=== PATIENT | female | born 1955 | race African-American/Black ===

== ENCOUNTER → 2016-09-29 | Outpatient (CLI) | payer MEDICAID ==
[2016-08-07 20:11] VITALS: BP 166/106
--- NOTE | 2016-09-29 15:43 | MG ---
HISTORY: SCREENING Comparison: None FINDINGS: Bilateral CC and MLO projections of the right and left breast were obtained. Heterogeneously dense fibroglandular tissue is seen to be present. No significant architectural distortion, mass or clust ered microcalcifications can be observed to suggest malignancy. No skin thickening or nipple retrac tion is appreciated. No pathological lymphadenopathy can be identified. IMPRESSION: NO RADIOGRAPHIC EVIDENCE OF MALIGNANCY. ACR CATEGORY I - NEGATIVE EXAM. FOLLOW-UP EXAM 1 YEAR. Diagnostic CAD was utilized and reviewed. * 0 (ZERO) - ASSESSMENT INCOMPLETE; ADDITIONAL IMAGING IS NEEDED. * 1/1 (ONE) - NEGATIVE. * 2/II (TWO) - BENIGN FINDINGS. * 3/III (THREE) - PROBABLY BENIGN FINDING; SHORT INTERVAL FOLLOW-UP SUGGESTED. * 4/IV (FOUR) - SUSPICIOUS ABNORMALITY; BIOPSY SHOULD BE CONSIDERED. * 5/V (FIVE) - HIGHLY SUSPICIOUS OF MALIGNANCY; BIOPSY SHOULD BE PERFORMED. A NEGATIVE X-RAY REPORT SHOULD NOT DELAY BIOPSY IF A DOMINANT OR CLINICALLY SUSPICIOUS MASS IS PRESENT; 4 TO 8 PERCENT OF CANCERS ARE NOT IDENTIFIED BY X-RAY. A NEG ATIVE REPORT MAY REINFORCE THE CLINICAL IMPRESSION. ADENOSIS AND DENSE BREASTS MAY OBSCURE AN UNDER LYING NEOPLASM. Reported By:
== END ==
LOC: MERGE 08:27 → RAD 08:27
PROVIDERS: ATTEND Nurse Practitioner Family
DX: Z00.00 Encounter for general adult medical examination without abnormal findings (principal); Z12.31 Encounter for screening mammogram for malignant neoplasm of breast
CPT/HCPCS: 77067

== ENCOUNTER → 2016-10-05 | Outpatient (CLI) | payer MEDICAID ==
[2016-10-04 14:23] VITALS: BP 166/106
== END ==
LOC: LAB 11:37
PROVIDERS: ATTEND Nurse Practitioner Family
DX: R51 Headache (principal)
CPT/HCPCS: 36415; 85652; 86140

== ENCOUNTER 2016-10-28 21:58 | Emergency (ER) | payer MEDICAID ==
[2016-10-28] MEDS ORDERED: ASPIRIN 81 MG CHEWTAB ONE (22:02)
[2016-10-28 22:07] VITALS: BMI 19.3
[2016-10-28] MEDS ORDERED: ASPIRIN 81 MG CHEWTAB PO STA (22:08)
[2016-10-28] MEDS: NITROSTAT SL PRN ×2 (22:09→22:52)
[2016-10-28 22:18] LABS: BASOPHILS # (AUTO) 0.1 X10^3/uL (0.0-0.1); BASOPHILS % (AUTO) 0.9 % (0.2-1.0); EOSINOPHILS # (AUTO) 0.2 x10^3/uL (0.0-0.2); EOSINOPHILS % (AUTO) 2.3 % (0.9-2.9); HEMATOCRIT 34.5 % (36.0-47.0); HEMOGLOBIN 11.8 g/dL (12.0-16.0); LYMPHOCYTES # (AUTO) 2.4 X10^3/uL (1.3-2.9); LYMPHOCYTES % (AUTO) 31.1 % (21.0-51.0); MEAN CORPUSCULAR HEMOGLOBIN 32.2 pg (27.0-34.0); MEAN CORPUSCULAR HGB CONC 34.4 g/dL (33.0-35.0); MEAN CORPUSCULAR VOLUME 93.7 fL (80.0-100.0); MEAN PLATELET VOLUME 8.2 fL (7.4-11.0); MONOCYTES # (AUTO) 0.7 x10^3/uL (0.3-0.8); MONOCYTES % (AUTO) 9.9 % (0.0-13.0); NEUTROPHILS # (AUTO) 4.2 x10^3/uL (2.2-4.8); NEUTROPHILS % (AUTO) 55.8 % (42.0-75.0); PLATELET COUNT 248 X10^3/uL (150.0-450.0); RED BLOOD COUNT 3.68 X10^6/uL (3.5-5.4); RED CELL DISTRIBUTION WIDTH 13.6 % (11.6-16.5); WHITE BLOOD COUNT 7.6 X10^3/uL (3.6-10.0)
[2016-10-28 22:31] LABS: ALANINE AMINOTRANSFERASE 37 Units/L (12-78); ALBUMIN 2.7 g/dL (3.4-5.0); ALKALINE PHOSPHATASE 166 Units/L (46-116); ASPARTATE AMINO TRANSFERASE 28 Units/L (15-37); BLOOD UREA NITROGEN 13 mg/dL (7-18); CALCIUM 8.4 mg/dL (8.5-10.1); CARBON DIOXIDE 23.4 mmol/L (21-32); CHLORIDE 107 mmol/L (98-107); COR CA(FOR HYPOALB) 9.4 mg/dL (8.5-10.1); CREATININE 0.97 mg/dL (0.55-1.02); GLUCOSE 104 mg/dL (65-99); MAGNESIUM 1.7 mg/dL (1.7-2.9); SODIUM 141 mmol/L (136-145); TOTAL PROTEIN 7.9 g/dL (6.4-8.2); eGFR BLACK RACES > 60 (>60); eGFR NON BLACK RACES > 60 (>60)
[2016-10-28 22:44] LABS: CKMB % 1.9 % (<4); CREATINE KINASE 52 Units/L (26-192); CREATINE KINASE MB < 1.0 ng/mL (0-4.0); TROPONIN I 0.03 ng/mL (0-1.5)
--- NOTE | 2016-10-28 22:47 | DR.CP ---
HPI - Time Seen Time seen: 21:00 - PCP Primary Care Physician: rika peters - Complaint Chief Complaint Doctor Comments: chest pain with nausea and SOB. Chief Complaint:: constant chest pain all day, nausea vomiting - Reviewed Nurses Notes Review: Yes - Source History Provided: Patient - Mode of Arrival Mode of Arrival: Wheelchair - Timing Onset of Chief Complaint: 10/28/16 Came on: Gradually - Duration Duration: Intermittent Duration: Minutes - Location Location of Chest Pain: Chest Chest Pain Radiation Location: None - Context Onset: At rest, With light exertion Cardiac Risk Factors: Hyperlipidemia, HTN PE Risk Factors: None History of: Similar pain in the past, Other (cardiac window due to pericardial effusion) - Quality Quality: Squeezing, Burning - Severity Severity: Moderate - Modifying Factors Worsens: Exertion - Associated Signs and Symptoms Associated Signs and Symptoms: Shortness of Breath, Nausea/Vomiting. denies: Diaphoresis PMH - PMH Past Medical History: Yes Past Medical History: CHF, Hypertension Past Surgical History: No - Family History History of Family Medical Conditions: Yes Family Medical History: Diabetes Mellitus, Hypertension - Social History Does patient currently use any type of tobacco product: No Have you used tobacco products in the last 12 months: No Type of Tobacco Use: None Alcohol Use: None Do you use any recreational Drugs:: No Lives With: Family Lives Where: Home - infectious screening Have you traveled outside the country in the last 6 months?: No Isolation: Standard ROS - Review of Systems Constitutional: No Symptoms Reported Eyes: No Symptoms Reported ENTM: No Symptoms Reported Respiratoy: Short of Breath Cardiovascular: Chest Pain Gastrointestinal/Abdominal: Nausea Genitourinary: No Symptoms Reported Neurological: No Symptoms Reported Musculoskeletal: No Symptoms Reported Integumentary: No Symptoms Reported Hematologic/Lymphatic: No Symptoms Reported Endocrine: No Symptoms Reported Psychiatric: No Symptoms Reported All Other Systems: Reviewed and Negative PE - Vitals Vitals: Pulse Rate [Apical] 63 Pulse Rate 69 Respiratory Rate 20 Blood Pressure [Left Arm] 171/90 Blood Pressure 180/96 O2 Sat by Pulse Oximetry 100 - General Limitations: No Limitations General Appearance: Alert, In No Apparent Distress - Head Head Exam: Normal Inspection - Eyes Eye exam: Normal Appearance - ENT ENT Exam: Normal Exam - Chest Chest Inspection: Tenderness (midepigastric at site of cardiac window) - Respiratory Respiratory Exam: Normal Lung Sounds Bilat, Chest Wall Tenderness. negative: Respiratory Distress Respiratory Exam: Bilateral Clear to Auscultation - Cardiovascular Cardiovascular Exam: Regular Rate, Normal Rhythm, Normal Heart Sounds Pulse: Normal - Abdominal Exam Abdominal Exam: Normal Bowel Sounds, Soft - Extremities Extremities Exam: Normal Inspection - Neurologic Neurological Exam: Alert, Oriented X3, CN II-XII Intact - Psychiatric Psychiatric Exam: Normal Affect, Normal Mood - Skin Skin Exam: Dry, Intact, Normal Color ROR - Labs Reviewed Result Diagrams: 10/28/16 22:05 10/28/16 22:05 Laboratory: WBC 7.6 X10^3/uL (3.6-10.0) 10/28/16 22:05 RBC 3.68 X10^6/uL (3.5-5.4) 10/28/16 22:05 Hgb 11.8 g/dL (12.0-16.0) L 10/28/16 22:05 Hct 34.5 % (36.0-47.0) L 10/28/16 22:05 MCV 93.7 fL (80.0-100.0) 10/28/16 22:05 MCH 32.2 pg (27.0-34.0) 10/28/16 22:05 MCHC 34.4 g/dL (33.0-35.0) 10/28/16 22:05 RDW 13.6 % (11.6-16.5) 10/28/16 22:05 Plt Count 248 X10^3/uL (150.0-450.0) 10/28/16 22:05 MPV 8.2 fL (7.4-11.0) 10/28/16 22:05 Neut % 55.8 % (42.0-75.0) 10/28/16 22:05 Lymph % 31.1 % (21.0-51.0) 10/28/16 22:05 [place] % 9.9 % (0.0-13.0) 10/28/16 22:05 Eos % 2.3 % (0.9-2.9) 10/28/16 22:05 Baso % 0.9 % (0.2-1.0) 10/28/16 22:05 Neut # 4.2 x10^3/uL (2.2-4.8) 10/28/16 22:05 Lymph # 2.4 X10^3/uL (1.3-2.9) 10/28/16 22:05 [place] # 0.7 x10^3/uL (0.3-0.8) 10/28/16 22:05 Eos # 0.2 x10^3/uL (0.0-0.2) 10/28/16 22:05 Baso # 0.1 X10^3/uL (0.0-0.1) 10/28/16 22:05 Absolute Nucleated RBC 0.0 /100WBC 10/28/16 22:05 INR Target Range - 10/28/16 22:05 INR 1.04 (0.8-1.3) 10/28/16 22:05 PTT 28.3 SECONDS (22.9-36.5) 10/28/16 22:05 PTT Comment - 10/28/16 22:05 Sodium 141 mmol/L (136-145) 10/28/16 22:05 Corrected Sodium TNP 10/28/16 22:05 Potassium 3.5 mmol/L (3.5-5.1) 10/28/16 22:05 Chloride 107 mmol/L (98-107) 10/28/16 22:05 Carbon Dioxide 23.4 mmol/L (21-32) 10/28/16 22:05 BUN 13 mg/dL (7-18) 10/28/16 22:05 Creatinine 0.97 mg/dL (0.55-1.02) 10/28/16 22:05 Est GFR (MDRD) Af Amer > 60 (>60) 10/28/16 22:05 Est GFR (MDRD) Non-Af > 60 (>60) 10/28/16 22:05 Glucose 104 mg/dL (65-99) H 10/28/16 22:05 Calcium 8.4 mg/dL (8.5-10.1) L 10/28/16 22:05 Corrected Calcium 9.4 mg/dL (8.5-10.1) 10/28/16 22:05 Magnesium 1.7 mg/dL (1.7-2.9) 10/28/16 22:05 Total Bilirubin 0.20 mg/dL (0.2-1.0) 10/28/16 22:05 AST 28 Units/L (15-37) 10/28/16 22:05 ALT 37 Units/L (12-78) 10/28/16 22:05 Alkaline Phosphatase 166 Units/L (46-116) H 10/28/16 22:05 Creatine Kinase 52 Units/L (26-192) 10/28/16 22:05 CK-MB (CK-2) < 1.0 ng/mL (0-4.0) 10/28/16 22:05 CK/CKMB % Calc 1.9 % (<4) 10/28/16 22:05 Troponin I 0.03 ng/mL (0-1.5) 10/28/16 22:05 Total Protein 7.9 g/dL (6.4-8.2) 10/28/16 22:05 Albumin 2.7 g/dL (3.4-5.0) L 10/28/16 22:05 Globulin 5.2 g/dL (2.5-4.5) H 10/28/16 22:05 Albumin/Globulin Ratio 0.5 Ratio (1.1-2.1) L 10/28/16 22:05 - Diagnosis Discharge Problem: Chest pain at rest, Bilateral pleural effusion, Pulmonary infiltrate in left lung on chest x-ray - Discharge Plan Disposition: 01 HOME, SELF-CARE Condition: Stable Prescriptions: Levofloxacin [LEVAQUIN TAB 500 MG *] 500 mg PO DAILY #6 tab - Follow ups/Referrals Follow ups/Referrals: JEROME PETERS [Primary Care Provider] - 3 days - Instructions Instructions: Shortness of Breath, [id number], Atelectasis, Adult
--- NOTE | 2016-10-28 23:04 | RAD ---
AP Chest Indication: Chest pain with vomiting Comparison: None available Findings: The trachea is midline. The cardiac silhouette is unremarkable. There are increased reticular opac ity within the left lung base with blunting of left costophrenic sulcus consistent with small pleura l effusion and suspected left lower lobe infiltrate. No pneumothorax. The bony thorax is unremarkab le. IMPRESSION: 1. Increased reticular opacities within the left lung base and blunting of left costophrenic sulcus suggests small pleural effusion in the setting of a left lower lobe infiltrate. Correlation with fo llowup PA and lateral chest radiograph after completion of therapy is recommended to ensure resoluti on. Reported By:
[2016-10-28] MEDS ORDERED: PEPCID 20 MG IV PREMIX* 20 MG/50 ML BAG IV ONE ×2 (23:07→23:14)
[2016-10-28] MEDS ORDERED: LEVSIN/MAALOX/LIDOC VISC PO ONE (23:08)
[2016-10-28] MEDS ORDERED: LEVSIN/MAALOX/LIDOC VISC ONE (23:14)
[2016-10-29] MEDS ORDERED: LEVAQUIN TAB 500 MG PO SCH ×2 (00:11→09:00)
[2016-10-29] MEDS ORDERED: LEVAQUIN TAB 500 MG PO ONE (00:13)
[2016-10-29] MEDS ORDERED: LEVAQUIN TAB 500 MG ONE (00:14)
[2016-10-29] MEDS ORDERED: DUONEB 0.5 MG/3 MG NEB ONE (00:15)
[2016-10-29] MEDS ORDERED: DUONEB 0.5 MG/3 MG ONE (00:26)
[2016-10-29 00:43] VITALS: BP 141/81
== END 2016-10-29 00:41 | disposition home or self-care (01) ==
LOC: ER 22:00
DX: R07.89 Other chest pain (principal); J90 Pleural effusion, not elsewhere classified; R91.8 Other nonspecific abnormal finding of lung field
CPT/HCPCS: 36415; 71010; 80053; 82550; 82553; 83735; 84484; 85025; 85610; 85730; 87040; 93005; 93010; 94640; 96365; 96374; 99283; A4222; S0028; J7620

== ENCOUNTER → 2016-11-04 | Outpatient (CLI) | payer MEDICAID ==
[2016-10-29 00:43] VITALS: BP 141/81
--- NOTE | 2016-11-04 10:30 | RAD ---
HISTORY: Abdominal pain, follow up abnormal chest x-ray Study: Acute abdominal series plus lateral chest Comparison: October 28, 2016 Findings: The trachea is midline. The cardiac silhouette is unremarkable. Lungs are free of acute infiltrate s. The left lung base is now clear. No pleural effusions are identified peer E The bony thorax is u nremarkable. Flat plate and upright evaluation of the abdomen demonstrates a normal bowel gas pattern. No pneumop eritoneum is identified.. No pathological soft tissue mass or calcification can be observed. The b gregoria structures are grossly intact. IMPRESSION: 1. No acute cardiopulmonary disease. 2. No evidence for acute abdominal pathology identified. Reported By:
[2016-11-04 10:31] LABS: BASOPHILS % (AUTO) 0.8 % (0.2-1.0); EOSINOPHILS # (AUTO) 0.1 x10^3/uL (0.0-0.2); EOSINOPHILS % (AUTO) 2.5 % (0.9-2.9); HEMATOCRIT 38.4 % (36.0-47.0); LYMPHOCYTES # (AUTO) 1.6 X10^3/uL (1.3-2.9); LYMPHOCYTES % (AUTO) 28.6 % (21.0-51.0); MEAN CORPUSCULAR VOLUME 94.1 fL (80.0-100.0); MONOCYTES # (AUTO) 0.6 x10^3/uL (0.3-0.8); MONOCYTES % (AUTO) 11.3 % (0.0-13.0); NEUTROPHILS # (AUTO) 3.2 x10^3/uL (2.2-4.8); NEUTROPHILS % (AUTO) 56.8 % (42.0-75.0); PLATELET COUNT 242 X10^3/uL (150.0-450.0); RED BLOOD COUNT 4.08 X10^6/uL (3.5-5.4); RED CELL DISTRIBUTION WIDTH 14.2 % (11.6-16.5); WHITE BLOOD COUNT 5.6 X10^3/uL (3.6-10.0)
[2016-11-04 10:50] LABS: ALANINE AMINOTRANSFERASE 28 Units/L (12-78); ALKALINE PHOSPHATASE 153 Units/L (46-116); ASPARTATE AMINO TRANSFERASE 24 Units/L (15-37); BLOOD UREA NITROGEN 11 mg/dL (7-18); CALCIUM 8.7 mg/dL (8.5-10.1); CARBON DIOXIDE 29.3 mmol/L (21-32); CHLORIDE 106 mmol/L (98-107); COR CA(FOR HYPOALB) 9.5 mg/dL (8.5-10.1); CREATININE 1.01 mg/dL (0.55-1.02); GLUCOSE 100 mg/dL (65-99); SODIUM 142 mmol/L (136-145); TOTAL PROTEIN 7.9 g/dL (6.4-8.2); eGFR BLACK RACES > 60 (>60); eGFR NON BLACK RACES 59 (>60)
[2016-11-04 11:20] LABS: ERYTHROCYTE SEDIMENTATION RATE 25 MM/HOUR (0-20)
== END ==
LOC: LAB 09:49
PROVIDERS: ATTEND Nurse Practitioner Family
DX: R10.84 Generalized abdominal pain (principal); R11.10 Vomiting, unspecified; R93.8 Abnormal findings on diagnostic imaging of other specified body structures
CPT/HCPCS: 36415; 74022; 80053; 85025; 85652; 86140

== ENCOUNTER → 2016-11-10 | Outpatient (CLI) | payer MEDICAID ==
[2016-10-04 14:23] VITALS: BP 166/106
--- NOTE | 2016-11-10 10:18 | MRI ---
MRI BRAIN WITHOUT AND WITH CONTRAST CLINICAL HISTORY: 61-year-old female with temporal headache and blurred vision. COMPARISON: None. TECHNIQUE: Multiplanar, multisequence MR images of the brain were obtained prior to and following t he uneventful intravenous administration of contrast. FINDINGS: There is no evidence of diffusion restriction. The craniocervical junction is normal. Pituitary and optic nerve complex are normal. There are few scattered punctate foci of T2 FLAIR signal hyperintens ities are present within the periventricular and supraventricular white matter that are nonspecific in appearance but most likely to represent microvascular white matter ischemic changes. Normal signa l characteristics and morphology are demonstrated within the cerebral cortex, corpus callosum, deep mario nuclei, brainstem and cerebellum. Within the adenoidal tissue there is a 5 x 6 mm T2 FLAIR hype rintense cystic lesion with a 4 x 8 mm ovoid T2 FLAIR hyperintense cystic lesion within the left fos sa of Rosenmuller. The major vascular channels opacify normally and the major vascular flow voids, t o include the dural venous sinuses, are intact. The ventricular system is normal in size and morphol ogy. The basilar cisterns are normal. There is no evidence of abnormal intracranial enhancement. The orbits and globes are within normal limits. The paranasal sinuses and mastoids are clear. IMPRESSION: 1. No acute ischemic or hemorrhagic insult. 2. Nonspecific scattered foci of T2 FLAIR hyperintense signal within the white matter, most in keepi ng with chronic microvascular ischemic insult. 3. T2 FLAIR hyperintense cystic lesions within the adenoidal tissue and left fossa of Rosenmuller, l ikely cysts or small lymph nodes, recommend direct visualization by otolaryngology to exclude underl jaquelin neoplastic process. Reported By:
--- NOTE | 2016-11-10 10:18 | MRI ---
MRA HEAD WITHOUT CONTRAST CLINICAL HISTORY: 61-year-old female with temporal headache and blurred vision. COMPARISONS: None. TECHNIQUE: 3-D time of flight magnetic resonance angiographic images of the [place] of [place] were ob tained and presented as maximum intensity projection images in rotating format. FINDINGS: The vertebral arteries are codominant. Bilateral PICA are present. The basilar artery is normal in a ppearance and gives off normal bilateral AICA superior cerebellar and posterior cerebral arteries. T he internal carotid arteries are normal from the distal cervical segments to the carotid terminus. T here are small caliber posterior communicating arteries bilaterally. The middle and anterior cerebra l arteries are normal in course and caliber. There is a small caliber anterior communicating artery. IMPRESSION: No aneurysm, high-grade stenosis, complete occlusion, dissection or vascular malformation. Reported By:
== END ==
LOC: RAD 08:08
PROVIDERS: ATTEND Nurse Practitioner Family
DX: R51 Headache (principal)
CPT/HCPCS: 70544; 70553

== ENCOUNTER 2016-11-29 10:21 | Emergency (ER) | payer MEDICAID ==
[2016-11-29 10:28] VITALS: BMI 24.0
--- NOTE | 2016-11-29 11:06 | DR.GENAD ---
HPI - PCP Primary Care Physician: wes - HPI Comment HPI Comment: SAW PCP THIS AM. BP ELEVATED. CLONIDINE GIVEN TIMES 2. BP REMAIN ELEVATED. HERE FOR FURTHER EVALUATION. PATIENT IS SLEEPY BUT FULLY AROUSABLE. HAVING SEVERE HEADACHE. NO FEVER. HISTORY HTN ON MEDICATION AND IS COMPLAINT WITH MEDS. - Complaint/Symptoms Chief Complaint Doctors Comments: ELEVATED BLOOD PRESSURE. Chief Complaint:: high blood pressure - Nurses notes reviewed Nurses Notes Review: Yes - Source History Provided: Patient - Mode of Arrival Mode of Arrival: Ambulatory - Timing Onset of Chief Complaint: 11/29/16 Came on: Suddenly - Duration Duration: Constant Duration: Hours - Severity Severity: Moderate PMH - PMH Past Medical History: Yes Past Medical History: CHF, Hypertension Past Surgical History: No - Family History History of Family Medical Conditions: Yes Family Medical History: Diabetes Mellitus, Hypertension - Social History Does patient currently use any type of tobacco product: No Have you used tobacco products in the last 12 months: No Type of Tobacco Use: None Does any household member use tobacco: No Alcohol Use: None Do you use any recreational Drugs:: No Lives With: Family Lives Where: Home - infectious screening In the last 2 months have you had wt loss of >10#?: NO Have you had fever, night sweats or hemotysis?: No Have you traveled outside the country in the last 6 months?: No Isolation: Standard ROS - Review of Systems Constitutional: Weakness, Fatigue. negative: Chills, Diaphoresis, Fever, Loss of Appetite Eyes: Blurred Vision, Photophobia. negative: Eye Pain, Discharge ENTM: No Symptoms Reported. negative: Ear Pain, Nose Discharge, Nose Congestion , Throat Pain Respiratoy: No Symptoms Reported, Short of Breath. negative: Productive Cough, Non-Productive Cough, Wheezing, Hemoptysis Cardiovascular: Chest Pain, Other (BP ELEVATED). negative: Edema, Palpitations Gastrointestinal/Abdominal: Nausea. negative: Abdominal Pain, Diarrhea, Vomiting Genitourinary: No Symptoms Reported. negative: Dysuria, Frequency, Hematuria Neurological: Headache, Dizziness Musculoskeletal: Muscle Pain Integumentary: No Symptoms Reported Hematologic/Lymphatic: No Symptoms Reported Endocrine: No Symptoms Reported All Other Systems: Reviewed and Negative PE - Vital Signs Vitals: Temperature 97.8 F Pulse Rate [Left Brachial] 75 Pulse Rate 60 Respiratory Rate 16 Blood Pressure [Left Arm] 105/56 Blood Pressure 196/108 O2 Sat by Pulse Oximetry 99 - General Limitations: No Limitations General Appearance: Alert - Head Head Exam: Normal Inspection - Eyes Eye exam: Normal Appearance - ENT ENT Exam: Normal External Ear Exam External Ear Exam: Normal External Inspection TM/Canal Exam: Bilateral Normal Nose Exam: Normal Nose Exam Mouth Exam: Normal Inspection Throat Exam: Normal Inspection - Neck Neck Exam: Trachea Midline - Chest Chest Inspection: Symmetric Chest Wall Rise - Respiratory Respiratory Exam: Normal Lung Sounds Bilat Respiratory Exam: Bilateral Clear to Auscultation - Cardiovascular Cardiovascular Exam: Regular Rate, Normal Rhythm, Normal Heart Sounds - Abdominal Exam Abdominal Exam: Normal Bowel Sounds, Soft. negative: Tenderness - Extremities Extremities Exam: Normal Inspection - Back Back Exam: Normal Inspection - Neurologic Neurological Exam: Alert, Oriented X3, CN II-XII Intact. negative: Motor Sensory Deficit, Reflexes Normal - Psychiatric Psychiatric Exam: Normal Affect - Skin Skin Exam: Erythema MDM - Additional Information Additional Information Obtained From: Family - Differential Diagnosis Differential Diagnosis: HTN, HEADACHE, WEAKNESS, [place], CHF Course - Treatment Treatment: SEE ORDERS. PATIENT KEPT IN ED FOR OBSERVATION WHILE BP IMPROVE. - Reevaluation 1st: Improved (BP IMPROVE WITH MEDS IN ED,) - Consultation Consultation Comments: DISCUSS PATIENT WITH ALYSSA HOYOS PROVIDER. SHE WANT PATIENT TO REMAIN ON SAME DOSE OF HER HOME MED. SHE SHOULD CONTINUE TO MONITOR AND CHART BP. SHE WILL CALL PATIENT IN AM. - Education/Counseling Education/Counseling: Patient, Family, Education Educated On: Treatment, Diagnosis, Needs for Follow Up ROR - Labs Reviewed Laboratory Results Reviewed?: Yes Result Diagrams: 11/29/16 11:23 11/29/16 11:23 Laboratory: WBC 6.1 X10^3/uL (3.6-10.0) 11/29/16 11:23 RBC 4.10 X10^6/uL (3.5-5.4) 11/29/16 11:23 Hgb 13.2 g/dL (12.0-16.0) 11/29/16 11:23 Hct 39.5 % (36.0-47.0) 11/29/16 11:23 MCV 96.4 fL (80.0-100.0) 11/29/16 11:23 MCH 32.1 pg (27.0-34.0) 11/29/16 11:23 MCHC 33.4 g/dL (33.0-35.0) 11/29/16 11:23 RDW 14.7 % (11.6-16.5) 11/29/16 11:23 Plt Count 163 X10^3/uL (150.0-450.0) 11/29/16 11:23 MPV 8.8 fL (7.4-11.0) 11/29/16 11:23 Neut % 49.5 % (42.0-75.0) 11/29/16 11:23 Lymph % 36.7 % (21.0-51.0) 11/29/16 11:23 [place] % 10.1 % (0.0-13.0) 11/29/16 11:23 Eos % 2.6 % (0.9-2.9) 11/29/16 11:23 Baso % 1.1 % (0.2-1.0) H 11/29/16 11:23 Neut # 3.0 x10^3/uL (2.2-4.8) 11/29/16 11:23 Lymph # 2.2 X10^3/uL (1.3-2.9) 11/29/16 11:23 [place] # 0.6 x10^3/uL (0.3-0.8) 11/29/16 11:23 Eos # 0.2 x10^3/uL (0.0-0.2) 11/29/16 11:23 Baso # 0.1 X10^3/uL (0.0-0.1) 11/29/16 11:23 Absolute Nucleated RBC 0.1 /100WBC 11/29/16 11:23 Sodium 144 mmol/L (136-145) 11/29/16 11:23 Corrected Sodium TNP 11/29/16 11:23 Potassium 4.0 mmol/L (3.5-5.1) 11/29/16 11:23 Chloride 108 mmol/L (98-107) H 11/29/16 11:23 Carbon Dioxide 33.6 mmol/L (21-32) H 11/29/16 11:23 BUN 12 mg/dL (7-18) 11/29/16 11:23 Creatinine 0.96 mg/dL (0.55-1.02) 11/29/16 11:23 Est GFR (MDRD) Af Amer > 60 (>60) 11/29/16 11:23 Est GFR (MDRD) Non-Af > 60 (>60) 11/29/16 11:23 Glucose 108 mg/dL (65-99) H 11/29/16 11:23 Calcium 8.0 mg/dL (8.5-10.1) L 11/29/16 11:23 Corrected Calcium 8.8 mg/dL (8.5-10.1) 11/29/16 11:23 Total Bilirubin 0.20 mg/dL (0.2-1.0) 11/29/16 11:23 AST 15 Units/L (15-37) 11/29/16 11:23 ALT 29 Units/L (12-78) 11/29/16 11:23 Alkaline Phosphatase 134 Units/L (46-116) H 11/29/16 11:23 Creatine Kinase 57 Units/L (26-192) 11/29/16 11:23 CK-MB (CK-2) < 1.0 ng/mL (0-4.0) 11/29/16 11:23 CK/CKMB % Calc 1.8 % (<4) 11/29/16 11:23 Troponin I 0.06 ng/mL (0-1.5) 11/29/16 11:23 Total Protein 7.2 g/dL (6.4-8.2) 11/29/16 11:23 Albumin 3.0 g/dL (3.4-5.0) L 11/29/16 11:23 Globulin 4.2 g/dL (2.5-4.5) 11/29/16 11:23 Albumin/Globulin Ratio 0.7 Ratio (1.1-2.1) L 11/29/16 11:23 - XRAY XRAY Findings: REPORT DISCUSS WITH PATIENT AND HER FAMILY. - EKG Rhythm: NSR (EKG NOTED.) - Diagnosis Discharge Problem: Hypertension Qualifiers: Hypertension type: essential hypertension Qualified Code(s): I10 - Essential ( primary) hypertension - Discharge Plan Disposition: HOME, SELF-CARE Condition: Stable - Follow ups/Referrals Follow ups/Referrals: NFD,None [Primary Care Provider] - 3 days - Instructions Instructions: Hypertension Additional Instructions: RETURN TO ED IF WORSE. CHECK BP DAILY AND WRITE ON YOUR LOG AT HOME. TAKE TO PCP. YOUR PCP WILL BE IN TOUCH WITH YOU TOMORROW.
[2016-11-29] MEDS ORDERED: NIFEDIPINE CAP 10 MG PO ONE (11:12)
[2016-11-29 11:32] LABS: BASOPHILS # (AUTO) 0.1 X10^3/uL (0.0-0.1); BASOPHILS % (AUTO) 1.1 % (0.2-1.0); EOSINOPHILS # (AUTO) 0.2 x10^3/uL (0.0-0.2); EOSINOPHILS % (AUTO) 2.6 % (0.9-2.9); HEMATOCRIT 39.5 % (36.0-47.0); HEMOGLOBIN 13.2 g/dL (12.0-16.0); LYMPHOCYTES # (AUTO) 2.2 X10^3/uL (1.3-2.9); LYMPHOCYTES % (AUTO) 36.7 % (21.0-51.0); MEAN CORPUSCULAR HEMOGLOBIN 32.1 pg (27.0-34.0); MEAN CORPUSCULAR HGB CONC 33.4 g/dL (33.0-35.0); MEAN CORPUSCULAR VOLUME 96.4 fL (80.0-100.0); MEAN PLATELET VOLUME 8.8 fL (7.4-11.0); MONOCYTES # (AUTO) 0.6 x10^3/uL (0.3-0.8); MONOCYTES % (AUTO) 10.1 % (0.0-13.0); NEUTROPHILS % (AUTO) 49.5 % (42.0-75.0); PLATELET COUNT 163 X10^3/uL (150.0-450.0); RED CELL DISTRIBUTION WIDTH 14.7 % (11.6-16.5); WHITE BLOOD COUNT 6.1 X10^3/uL (3.6-10.0)
[2016-11-29 11:53] LABS: BLOOD UREA NITROGEN 12 mg/dL (7-18); CARBON DIOXIDE 33.6 mmol/L (21-32); CHLORIDE 108 mmol/L (98-107); CREATININE 0.96 mg/dL (0.55-1.02); GLUCOSE 108 mg/dL (65-99); SODIUM 144 mmol/L (136-145); TROPONIN I 0.06 ng/mL (0-1.5); eGFR BLACK RACES > 60 (>60); eGFR NON BLACK RACES > 60 (>60)
[2016-11-29 11:57] LABS: ALANINE AMINOTRANSFERASE 29 Units/L (12-78); ALKALINE PHOSPHATASE 134 Units/L (46-116); ASPARTATE AMINO TRANSFERASE 15 Units/L (15-37); CKMB % 1.8 % (<4); COR CA(FOR HYPOALB) 8.8 mg/dL (8.5-10.1); CREATINE KINASE 57 Units/L (26-192); CREATINE KINASE MB < 1.0 ng/mL (0-4.0); TOTAL PROTEIN 7.2 g/dL (6.4-8.2)
--- NOTE | 2016-11-29 12:31 | CT ---
HISTORY: Headache Study: CT brain without contrast Comparison: MRI of the brain performed on November 10, 2016 Technique: Multiple axial images of the brain were obtained from the skull base to the vertex without administr ation of IV contrast. Findings: No acute intraparenchymal hemorrhage or mass can be identified. No extra-axial fluid collections ar e seen. No alteration in the attenuation of the brain parenchyma can be identified to suggest acute or subacute ischemic change. The ventricular system is symmetric and nondilated. An approximate 4 -5 mm low-attenuation focus is again seen within the adenoidal tissue near midline and as previously stated may reflect a cyst or perhaps small lymph node. ENT consultation/direct visualization may be helpful in further characterizing this finding. Patchy areas of decreased attenuation within the pe riventricular, subcortical, and subinsular white matter suggest changes of chronic small vessel isch emic disease. If symptoms are clinical concern persist recommend continued followup for further eval uation. IMPRESSION: 1. No acute intracranial process can be identified. See above discussion. Reported By:
--- NOTE | 2016-11-29 12:41 | RAD ---
Chest, one view Indication: Chest pain Comparison: October 28, 2016 Findings: The cardiac silhouette is normal in size for AP technique. The lungs are clear without foc al consolidation. No significant effusion or pneumothorax is identified. The regional skeleton is in tact. Impression: No acute cardiopulmonary abnormality. Reported By:
[2016-11-29 13:36] VITALS: BP 105/56
[2016-11-29] MEDS ORDERED: POTASSIUM CHLORIDE LIQ 20 MEQ UDC PO ONE (14:12)
== END 2016-11-29 14:03 | disposition home or self-care (01) ==
LOC: ER 10:32
DX: I10 Essential (primary) hypertension (principal)
CPT/HCPCS: 36415; 70450; 71010; 80053; 82550; 82553; 84484; 85025; 93005; 93010; 99282; 99283

== ENCOUNTER → 2016-12-02 | Outpatient (CLI) | payer MEDICAID ==
[~2016-12-02] MED LIST: NS 100 ML IV 100 ML IV ONE
--- NOTE | 2016-12-02 13:52 | CT ---
HISTORY: Mass. Study: CT soft tissue neck with contrast Comparison: None. Technique: Multiple axial images of the soft tissue neck were obtained from skull base to the aortic arch after the administration of IV contrast. Sagittal and coronal reformats were performed and re viewed. Dose reduction techniques including Automated Exposure Control (AEC) and adjustment of mA a nd kV were utilized. Findings: The visualized portions of the posterior fossa and orbits are unremarkable in appearance. Enlarged t hyroid gland with substernal extension and 1.4 x 1.2 cm left inferior thyroid lobe nodule. The parot id glands and submandibular glands are unremarkable in their contrast appearance. The carotid space on the right and left is unremarkable. No mass or significant lymphadenopathy can be identified. The prevertebral and paraspinous regions are unremarkable. The nasopharynx, oropharynx, hypopharynx are unremarkable. The larynx appears symmetric. The vascular structures are unremarkable in their appearance. The aortic arch is unremarkable. The visualized portions of the mediastinum are unrem arkable as well. Degenerative changes of the spine. Centrilobular and paraseptal emphysematous jimenez ges of the lungs. IMPRESSION: 1. No acute CT findings of the neck. 2. 1.4 cm left thyroid lobe nodule as above. Recommend dedicated thyroid ultrasound. Reported By:
== END ==
LOC: RAD 07:57
DX: R22.1 Localized swelling, mass and lump, neck (principal)
CPT/HCPCS: 70491; A4222

== ENCOUNTER → 2017-02-14 | Outpatient (CLI) | payer MEDICAID | LOC: RT 09:27 | DX: Z01.818 Encounter for other preprocedural examination (principal); Z01.810 Encounter for preprocedural cardiovascular examination; I10 Essential (primary) hypertension; R94.31 Abnormal electrocardiogram [ECG] [EKG] | CPT/HCPCS: 93005; 93010 ==

== ENCOUNTER 2017-03-17 22:42 | Observation (INO) | payer MEDICAID ==
[2017-03-17] MEDS ORDERED: ASPIRIN ONE (22:55)
[2017-03-17] MEDS ORDERED: ASPIRIN PO ONE (23:09)
[2017-03-17 23:16] LABS: BASOPHILS # (AUTO) 0.1 X10^3/uL (0.0-0.1); BASOPHILS % (AUTO) 0.7 % (0.2-1.0); EOSINOPHILS # (AUTO) 0.1 x10^3/uL (0.0-0.2); EOSINOPHILS % (AUTO) 1.4 % (0.9-2.9); HEMATOCRIT 40.5 % (36.0-47.0); HEMOGLOBIN 13.9 g/dL (12.0-16.0); LYMPHOCYTES # (AUTO) 2.2 X10^3/uL (1.3-2.9); MEAN CORPUSCULAR HEMOGLOBIN 32.3 pg (27.0-34.0); MEAN CORPUSCULAR HGB CONC 34.2 g/dL (33.0-35.0); MEAN CORPUSCULAR VOLUME 94.3 fL (80.0-100.0); MEAN PLATELET VOLUME 9.4 fL (7.4-11.0); MONOCYTES % (AUTO) 11.8 % (0.0-13.0); NEUTROPHILS # (AUTO) 5.1 x10^3/uL (2.2-4.8); NEUTROPHILS % (AUTO) 60.1 % (42.0-75.0); PLATELET COUNT 169 X10^3/uL (150.0-450.0); RED BLOOD COUNT 4.29 X10^6/uL (3.5-5.4); RED CELL DISTRIBUTION WIDTH 12.8 % (11.6-16.5); WHITE BLOOD COUNT 8.6 X10^3/uL (3.6-10.0)
[2017-03-17] MEDS ORDERED: NITROSTAT SL ONE (23:28)
[2017-03-17] MEDS: NITROSTAT SL PRN ×2 (23:30→23:37)
[2017-03-17 23:37] LABS: BLOOD UREA NITROGEN 15 mg/dL (7-18); CALCIUM 9.3 mg/dL (8.5-10.1); CARBON DIOXIDE 26.3 mmol/L (21-32); CHLORIDE 103 mmol/L (98-107); CREATININE 1.15 mg/dL (0.55-1.02); SODIUM 141 mmol/L (136-145); TROPONIN I 0.03 ng/mL (0-1.5); eGFR BLACK RACES > 60 (>60); eGFR NON BLACK RACES 50 (>60)
[2017-03-17 23:41] LABS: ALANINE AMINOTRANSFERASE 24 Units/L (12-78); ALBUMIN 3.4 g/dL (3.4-5.0); ALKALINE PHOSPHATASE 129 Units/L (46-116); ASPARTATE AMINO TRANSFERASE 22 Units/L (15-37); CKMB % 1.3 % (<4); CREATINE KINASE 78 Units/L (26-192); CREATINE KINASE MB < 1.0 ng/mL (0-4.0); MAGNESIUM 1.9 mg/dL (1.7-2.9); TOTAL PROTEIN 8.2 g/dL (6.4-8.2)
--- NOTE | 2017-03-17 23:41 | RAD ---
Chest, one-view Indication: Chest pain Comparison: 11/29/2016 Findings: The heart size is normal. No focal consolidation, effusion or pneumothorax is identified. N o acute osseous abnormality is seen. Impression: No acute chest process. Reported By:
[2017-03-17] MEDS ORDERED: MORPHINE SULFATE INJ 4 MG IVP ONE (23:47)
[2017-03-17] MEDS ORDERED: MORPHINE SULFATE INJ 2 MG INJ ONE (23:48)
--- NOTE | 2017-03-17 23:51 | DR.GENAD ---
HPI - PCP Primary Care Physician: laurie clark - Complaint/Symptoms Chief Complaint Doctors Comments: Patient states that her chest pain started two days ago, worse today. Mid-sternal 10/10, quality sharp,timing intermittent no modifying factor. non radiating. Chief Complaint:: Patient reports chest pain started a couple of days ago and it worsened today. Patient reports chest pain is midsternal and rates pain a 10/ 10. Family member reports she took 2 Nitro SL 10 minutes prior to arrival with no change in pain. Patient has had nausea and vomiting as well. - Source History Provided: Patient - Mode of Arrival Mode of Arrival: Wheelchair - Timing Onset of Chief Complaint: 03/15/17 PMH - PMH Past Medical History: Yes Past Medical History: CHF, Hypertension Past Surgical History: Yes - Family History History of Family Medical Conditions: Yes Family Medical History: Diabetes Mellitus, Hypertension - Social History Type of Tobacco Use: None Alcohol Use: None Do you use any recreational Drugs:: No Lives With: Family Lives Where: Home - infectious screening In the last 2 months have you had wt loss of >10#?: NO Have you had fever, night sweats or hemotysis?: No Have you traveled outside the country in the last 6 months?: No Isolation: Standard ROS - Review of Systems Eyes: No Symptoms Reported ENTM: No Symptoms Reported Respiratoy: No Symptoms Reported Cardiovascular: See HPI Gastrointestinal/Abdominal: No Symptoms Reported Genitourinary: No Symptoms Reported Neurological: No Symptoms Reported Musculoskeletal: No Symptoms Reported Integumentary: No Symptoms Reported Hematologic/Lymphatic: No Symptoms Reported Endocrine: No Symptoms Reported Psychiatric: No Symptoms Reported All Other Systems: Reviewed and Negative PE - Vital Signs Vitals: Temperature 98 F Pulse Rate [Left Apical] 92 Pulse Rate 100 Respiratory Rate 17 Blood Pressure [Left Arm] 117/63 Blood Pressure 141/81 O2 Sat by Pulse Oximetry 97 - General Limitations: No Limitations General Appearance: Alert, In No Apparent Distress - Head Head Exam: Normal Inspection, Atraumatic - Eyes Eye exam: Normal Appearance, PERRL, EOMI - ENT ENT Exam: Normal Exam External Ear Exam: Normal External Inspection TM/Canal Exam: Bilateral Normal Nose Exam: Normal Nose Exam Mouth Exam: Normal Inspection Throat Exam: Normal Inspection - Neck Neck Exam: Normal Inspection - Chest Chest Inspection: Normal Inspection - Respiratory Respiratory Exam: Normal Lung Sounds Bilat Respiratory Exam: Bilateral Clear to Auscultation - Cardiovascular Cardiovascular Exam: Regular Rate, Normal Rhythm - Abdominal Exam Abdominal Exam: Normal Inspection Abdominal Tenderness: RUQ, Other (right flank) - Extremities Extremities Exam: Normal Inspection - Back Back Exam: Normal Inspection - Neurologic Neurological Exam: Alert, Oriented X3, CN II-XII Intact - Psychiatric Psychiatric Exam: Normal Affect - Skin Skin Exam: Warm, Dry, Intact Course - Reevaluation 1st: Improved - Consultation Called: 01:30 (Dr Villavicencio recommened admit for chest pain protocol) ROR - Labs Reviewed Result Diagrams: 03/17/17 23:09 03/17/17 23:09 Laboratory: WBC 8.6 X10^3/uL (3.6-10.0) 03/17/17 23:09 RBC 4.29 X10^6/uL (3.5-5.4) 03/17/17 23:09 Hgb 13.9 g/dL (12.0-16.0) 03/17/17 23:09 Hct 40.5 % (36.0-47.0) 03/17/17 23:09 MCV 94.3 fL (80.0-100.0) 03/17/17 23:09 MCH 32.3 pg (27.0-34.0) 03/17/17 23:09 MCHC 34.2 g/dL (33.0-35.0) 03/17/17 23:09 RDW 12.8 % (11.6-16.5) 03/17/17 23:09 Plt Count 169 X10^3/uL (150.0-450.0) 03/17/17 23:09 MPV 9.4 fL (7.4-11.0) 03/17/17 23:09 Neut % 60.1 % (42.0-75.0) 03/17/17 23:09 Lymph % 26.0 % (21.0-51.0) 03/17/17 23:09 [place] % 11.8 % (0.0-13.0) 03/17/17 23:09 Eos % 1.4 % (0.9-2.9) 03/17/17 23:09 Baso % 0.7 % (0.2-1.0) 03/17/17 23:09 Neut # 5.1 x10^3/uL (2.2-4.8) H 03/17/17 23:09 Lymph # 2.2 X10^3/uL (1.3-2.9) 03/17/17 23:09 [place] # 1.0 x10^3/uL (0.3-0.8) H 03/17/17 23:09 Eos # 0.1 x10^3/uL (0.0-0.2) 03/17/17 23:09 Baso # 0.1 X10^3/uL (0.0-0.1) 03/17/17 23:09 Absolute Nucleated RBC 0.0 /100WBC 03/17/17 23:09 INR Target Range - 03/17/17 23:09 INR 0.99 (0.8-1.3) 03/17/17 23:09 PTT 29.6 SECONDS (22.9-36.5) 03/17/17 23:09 PTT Comment - 03/17/17 23:09 Sodium 141 mmol/L (136-145) 03/17/17 23:09 Corrected Sodium TNP 03/17/17 23:09 Potassium 3.8 mmol/L (3.5-5.1) 03/17/17 23:09 Chloride 103 mmol/L (98-107) 03/17/17 23:09 Carbon Dioxide 26.3 mmol/L (21-32) 03/17/17 23:09 BUN 15 mg/dL (7-18) 03/17/17 23:09 Creatinine 1.15 mg/dL (0.55-1.02) H 03/17/17 23:09 Est GFR (MDRD) Af Amer > 60 (>60) 03/17/17 23:09 Est GFR (MDRD) Non-Af 50 (>60) L 03/17/17 23:09 Glucose 108 mg/dL (65-99) H 03/17/17 23:09 Calcium 9.3 mg/dL (8.5-10.1) 03/17/17 23:09 Corrected Calcium TNP 03/17/17 23:09 Magnesium 1.9 mg/dL (1.7-2.9) 03/17/17 23:09 Total Bilirubin 0.20 mg/dL (0.2-1.0) 03/17/17 23:09 AST 22 Units/L (15-37) 03/17/17 23:09 ALT 24 Units/L (12-78) 03/17/17 23:09 Alkaline Phosphatase 129 Units/L (46-116) H 03/17/17 23:09 Creatine Kinase 78 Units/L (26-192) 03/17/17 23:09 CK-MB (CK-2) < 1.0 ng/mL (0-4.0) 03/17/17 23:09 CK/CKMB % Calc 1.3 % (<4) 03/17/17 23:09 Troponin I 0.03 ng/mL (0-1.5) 03/17/17 23:09 Total Protein 8.2 g/dL (6.4-8.2) 03/17/17 23:09 Albumin 3.4 g/dL (3.4-5.0) 03/17/17 23:09 Globulin 4.8 g/dL (2.5-4.5) H 03/17/17 23:09 Albumin/Globulin Ratio 0.7 Ratio (1.1-2.1) L 03/17/17 23:09 - XRAY XRAY Interpreted by: Radiologist (Chest: no acute process) - EKG Compared to prior EKG Dated: 02/14/17 - Diagnosis Discharge Problem: Acute coronary syndrome - Discharge Plan Condition: Stable - Follow ups/Referrals Follow ups/Referrals: NFD,None [Primary Care Provider] - 3 days - Instructions
[2017-03-17] MEDS ORDERED: ZOFRAN INJ 4 MG VIAL IVP ONE (23:57)
[2017-03-18] MEDS ORDERED: ZOFRAN INJ 4 MG VIAL ONE (00:04)
[2017-03-18] MEDS ORDERED: MORPHINE SULFATE INJ 2 MG INJ IVP ONE (02:02)
[2017-03-18 05:52] VITALS: BMI 23.3
[2017-03-18 05:53] LABS: CHOL/HDL RATIO 4.8 (0.0-5.0)
[2017-03-18 06:07] LABS: CKMB % 1.4 % (<4); CREATINE KINASE 70 Units/L (26-192); CREATINE KINASE MB < 1.0 ng/mL (0-4.0); TROPONIN I 0.03 ng/mL (0-1.5)
[2017-03-18] MEDS: ZOFRAN INJ 4 MG VIAL IVP PRN (07:43)
[2017-03-18 10:45] LABS: CKMB % 1.3 % (<4); CREATINE KINASE 80 Units/L (26-192); CREATINE KINASE MB < 1.0 ng/mL (0-4.0); TROPONIN I 0.03 ng/mL (0-1.5)
[2017-03-18] MEDS: MORPHINE SULFATE INJ 2 MG INJ IVP PRN ×2 (12:19→15:21)
[2017-03-19] MEDS ORDERED: TYLENOL 325 MG TAB PO PRN (04:19)
[2017-03-19 07:22] LABS: BASOPHILS % (AUTO) 0.5 % (0.2-1.0); EOSINOPHILS # (AUTO) 0.1 x10^3/uL (0.0-0.2); EOSINOPHILS % (AUTO) 2.1 % (0.9-2.9); HEMATOCRIT 38.5 % (36.0-47.0); HEMOGLOBIN 13.2 g/dL (12.0-16.0); LYMPHOCYTES # (AUTO) 1.7 X10^3/uL (1.3-2.9); LYMPHOCYTES % (AUTO) 24.6 % (21.0-51.0); MEAN CORPUSCULAR HEMOGLOBIN 32.3 pg (27.0-34.0); MEAN CORPUSCULAR HGB CONC 34.4 g/dL (33.0-35.0); MEAN CORPUSCULAR VOLUME 94.1 fL (80.0-100.0); MEAN PLATELET VOLUME 10.4 fL (7.4-11.0); MONOCYTES # (AUTO) 0.9 x10^3/uL (0.3-0.8); MONOCYTES % (AUTO) 12.5 % (0.0-13.0); NEUTROPHILS # (AUTO) 4.3 x10^3/uL (2.2-4.8); NEUTROPHILS % (AUTO) 60.3 % (42.0-75.0); PLATELET COUNT 161 X10^3/uL (150.0-450.0); RED CELL DISTRIBUTION WIDTH 12.9 % (11.6-16.5); WHITE BLOOD COUNT 7.1 X10^3/uL (3.6-10.0)
[2017-03-19 07:27] LABS: BLOOD UREA NITROGEN 12 mg/dL (7-18); CALCIUM 8.8 mg/dL (8.5-10.1); CARBON DIOXIDE 27.9 mmol/L (21-32); CHLORIDE 104 mmol/L (98-107); CREATININE 1.09 mg/dL (0.55-1.02); SODIUM 141 mmol/L (136-145); eGFR BLACK RACES > 60 (>60); eGFR NON BLACK RACES 54 (>60)
[2017-03-19 08:01] LABS: ALANINE AMINOTRANSFERASE 19 Units/L (12-78); ALKALINE PHOSPHATASE 116 Units/L (46-116); ASPARTATE AMINO TRANSFERASE 17 Units/L (15-37); TOTAL PROTEIN 7.6 g/dL (6.4-8.2)
[2017-03-19 08:15] LABS: COR CA(FOR HYPOALB) 9.6 mg/dL (8.5-10.1)
[2017-03-19] MEDS: MORPHINE SULFATE INJ 2 MG INJ IVP PRN ×2 (09:44→13:25)
[2017-03-19] MEDS ORDERED: BENADRYL CAP/TAB 25 MG PO PRN (14:36)
[2017-03-19] MEDS ORDERED: PROMETHAZINE HCL PO PRN (15:50)
[2017-03-19] MEDS ORDERED: NORCO 5/325 MG TAB PO PRN (15:50)
[2017-03-19] MEDS ORDERED: PHENERGAN TAB 25 MG PO PRN (16:13)
[2017-03-19] MEDS ORDERED: NAPROSYN PO PRN (16:13)
[2017-03-19] MEDS: ZOFRAN INJ 4 MG VIAL IVP PRN (16:33)
[2017-03-19 17:12] VITALS: BP 125/62
[2017-03-19] MEDS ORDERED: ZyrTEC TAB 10 MG PO SCH (21:00)
[2017-03-19] MEDS ORDERED: COREG TAB 25 MG PO SCH (21:00)
[2017-03-19] MEDS ORDERED: NEURONTIN CAP 100 MG PO SCH (22:00)
[2017-03-19] MEDS ORDERED: NAPROXEN PO SCH (22:00)
[2017-03-20] MEDS ORDERED: NORVASC TAB 5 MG PO SCH (09:00)
== END 2017-03-19 19:30 | disposition home or self-care (01) ==
LOC: ER 22:53 → MED/SURG 03-18 02:11
PROVIDERS: ADMIT Internal Medicine; ATTEND Internal Medicine
DX: R07.89 Other chest pain (principal); I10 Essential (primary) hypertension; I31.3 Pericardial effusion (noninflammatory); I24.9 Acute ischemic heart disease, unspecified; R94.31 Abnormal electrocardiogram [ECG] [EKG]
CPT/HCPCS: 36415; 71010; 80053; 80061; 82550; 82553; 83735; 84484; 85025; 85610; 85730; 93005; 93010; 94760; 96365; 96374; 96375; 99217; 99218; 99284; A4222; G0378; J2270; J2405

== ENCOUNTER 2017-03-26 19:38 | Emergency (ER) | payer MEDICAID ==
[2017-03-26 19:47] VITALS: BMI 23.7
[2017-03-26] MEDS ORDERED: MORPHINE SULFATE INJ 2 MG INJ IVP ONE (21:02)
--- NOTE | 2017-03-26 21:07 | DR.GENAD ---
HPI - Complaint/Symptoms Chief Complaint Doctors Comments: Patient is complaining of xiphoid chest pain for the past 3-4 days with pain xiphoid area worst on movement and deep breathing with nausea and vomiting but denies SOB or wheezing. Ricky she is a patient of Dr. Nicole and she had surgery seven years ago to draw fluid from around her heart. she denies edema, but has non productive cough. He denies any recent trauma. Patient states she has pain tablets she takes for headache, Fiorinal and she has been taking that for pain. States she recently had a thyroid biopsy by her doctor and said it was not cancer. Chief Complaint:: PT STATES THAT HER CHEST HURTS RIGHT IN THE CENTER. ONSET 3 DAYS. TENDER TO PATPATION. HURTS WORSE TO TAKE A DEEP BREATH. HURTS WORSE WITH MOVEMENT. STATES THAT SHE HAS BEEN COUGHING FOR 4 DAYS BUT UNABLE TO COUGH ANYTHING UP - Nurses notes reviewed Nurses Notes Review: Yes - Source History Provided: Patient - Mode of Arrival Mode of Arrival: Wheelchair - Timing Onset of Chief Complaint: 03/24/17 Came on: Gradually - Duration Duration: Constant How lon Duration: Days - Location Location: xiphoid chest pain - Severity Severity: Moderate - Modifying Factors Worsens:: movement and deep breathing Improves:: nothing PMH - PMH Past Medical History: Yes Past Medical History: CHF, Hypertension Past Surgical History: No Surgical History: Other - Family History History of Family Medical Conditions: Yes Family Medical History: Diabetes Mellitus, Hypertension - Social History Do you use any recreational Drugs:: No - infectious screening Have you traveled outside the country in the last 6 months?: No ROS - Review of Systems Constitutional: No Symptoms Reported. negative: See HPI, Chills, Diaphoresis, Fever, Malaise, Weakness, Irritable, Fatigue, Loss of Appetite, Other Eyes: No Symptoms Reported ENTM: No Symptoms Reported, Nose Congestion Respiratoy: No Symptoms Reported, Non-Productive Cough Cardiovascular: No Symptoms Reported, Chest Pain. negative: See HPI, Edema, Palpitations, Syncope, Cyanosis, Skin Mottling, Other Gastrointestinal/Abdominal: No Symptoms Reported, Nausea, Vomiting. negative: See HPI, Abdominal Pain, Constipation, Diarrhea, Food Intolerance, Other Genitourinary: No Symptoms Reported. negative: See HPI, Discharge, Dysuria, Frequency, Hematuria, Pain, Bleeding, Other Neurological: No Symptoms Reported Musculoskeletal: No Symptoms Reported Integumentary: No Symptoms Reported. negative: See HPI, Change in Color, Change in Hair/Nails, Dryness, Lesions, Lumps, Rash, Itching, Wound, Bruises, Juandice, Other Hematologic/Lymphatic: No Symptoms Reported. negative: See HPI, Anemia, Blood Clots, Easy Bleeding, Easy Bruising, Swollen Glands, Lymphadenopathy, Other Endocrine: No Symptoms Reported. negative: See HPI, Excessive Sweating, Flushing, Intolerance to Cold, Intolerance to Heat, Increased Hunger, Increased Thirst, Increased Urine, Unexplained Weight Gain, Unexplained Weight Loss, Failure to Thrive, Decreased Appetite, Other Psychiatric: No Symptoms Reported. negative: See HPI, Anxiety, Depression, Hallucinations, Excessive crying, Suicidal, Other PE - Vital Signs Vitals: Temperature 98.4 F Pulse Rate [Right Radial] 94 Pulse Rate 85 Respiratory Rate 18 Blood Pressure [Right Arm] 110/69 Blood Pressure [Left Arm] 124/77 Blood Pressure 108/74 O2 Sat by Pulse Oximetry 100 - General Limitations: No Limitations General Appearance: Alert, In Distress (moderate) - Head Head Exam: Normal Inspection, Atraumatic, Normocephalic - Eyes Eye exam: Normal Appearance, PERRL, EOMI. negative: Scleral Icterus, Conjunctival Injection, Nystagmus, Miosis, Mydrasis, Periorbital Swelling, Periorbital Tenderness, Other - ENT ENT Exam: Normal Exam, Normal Oropharynx, Normal External Ear Exam, Mucous Membranes Moist, TM's Normal Bilaterally External Ear Exam: Normal External Inspection TM/Canal Exam: Bilateral Normal Nose Exam: Normal Nose Exam Mouth Exam: Normal Inspection Throat Exam: Normal Inspection - Neck Neck Exam: Normal Inspection, Full ROM, Trachea Midline. negative: Tenderness, Meningismus, Lymphadenopathy, Thyromegaly, Other - Chest Chest Inspection: Normal Inspection, Symmetric Chest Wall Rise, Tenderness ( xiphoid chest wall tenderness) - Respiratory Respiratory Exam: Normal Lung Sounds Bilat Respiratory Exam: Bilateral Clear to Auscultation - Cardiovascular Cardiovascular Exam: Regular Rate, Normal Rhythm, Normal Heart Sounds - Abdominal Exam Abdominal Exam: Normal Inspection, Normal Bowel Sounds, Soft Abdominal Tenderness: negative: RUQ, RLQ, LUQ, LLQ, Epigastrium, Suprapubic, Diffuse, Mild, Moderate, Severe, Other - Extremities Extremities Exam: Normal Inspection, Full ROM, Normal Capillary Refill. negative: Tenderness, Edema, Joint Swelling, Calf Tenderness, Other - Back Back Exam: Normal Inspection, Full ROM. negative: Tenderness, (R) CVA Tenderness, (L) CVA Tenderness, Muscle Spasm, Paraspinal Tenderness, Vertebral Tenderness, Rashes, (R) Sciatic Notch Tenderness, (L) Sciatic Notch Tendern, (R ) Straight Leg Raise, (L) Straight Leg Raise, Other - Neurologic Neurological Exam: Alert, Oriented X3, CN II-XII Intact, Normal Gait, Reflexes Normal - Psychiatric Psychiatric Exam: Normal Affect, Normal Mood - Skin Skin Exam: Warm, Dry, Intact, Normal Color ROR - Labs Reviewed Laboratory Results Reviewed?: Yes (all labs and x-ray results reviewed and discussed with patient) Result Diagrams: 03/26/17 21:15 03/26/17 21:15 Laboratory: WBC 7.3 X10^3/uL (3.6-10.0) 03/26/17 21:15 RBC 3.61 X10^6/uL (3.5-5.4) 03/26/17 21:15 Hgb 11.5 g/dL (12.0-16.0) L 03/26/17 21:15 Hct 33.3 % (36.0-47.0) L 03/26/17 21:15 MCV 92.4 fL (80.0-100.0) 03/26/17 21:15 MCH 32.0 pg (27.0-34.0) 03/26/17 21:15 MCHC 34.7 g/dL (33.0-35.0) 03/26/17 21:15 RDW 12.3 % (11.6-16.5) 03/26/17 21:15 Plt Count 257 X10^3/uL (150.0-450.0) 03/26/17 21:15 MPV 8.7 fL (7.4-11.0) 03/26/17 21:15 Neut % 53.4 % (42.0-75.0) 03/26/17 21:15 Lymph % 26.7 % (21.0-51.0) 03/26/17 21:15 [place] % 15.7 % (0.0-13.0) H 03/26/17 21:15 Eos % 2.9 % (0.9-2.9) 03/26/17 21:15 Baso % 1.3 % (0.2-1.0) H 03/26/17 21:15 Neut # 3.9 x10^3/uL (2.2-4.8) 03/26/17 21:15 Lymph # 1.9 X10^3/uL (1.3-2.9) 03/26/17 21:15 [place] # 1.1 x10^3/uL (0.3-0.8) H 03/26/17 21:15 Eos # 0.2 x10^3/uL (0.0-0.2) 03/26/17 21:15 Baso # 0.1 X10^3/uL (0.0-0.1) 03/26/17 21:15 Absolute Nucleated RBC 0.0 /100WBC 03/26/17 21:15 INR Target Range - 03/26/17 21:15 INR 1.04 (0.8-1.3) 03/26/17 21:15 PTT 31.3 SECONDS (22.9-36.5) 03/26/17 21:15 PTT Comment - 03/26/17 21:15 D-Dimer 818 ng/mL (0-400) H* 03/26/17 21:15 Sodium 140 mmol/L (136-145) 03/26/17 21:15 Corrected Sodium 140 mmol/L (136-145) 03/26/17 21:15 Potassium 3.9 mmol/L (3.5-5.1) 03/26/17 21:15 Chloride 105 mmol/L (98-107) 03/26/17 21:15 Carbon Dioxide 23.3 mmol/L (21-32) 03/26/17 21:15 BUN 14 mg/dL (7-18) 03/26/17 21:15 Creatinine 0.80 mg/dL (0.55-1.02) 03/26/17 21:15 Est GFR (MDRD) Af Amer > 60 (>60) 03/26/17 21:15 Est GFR (MDRD) Non-Af > 60 (>60) 03/26/17 21:15 Glucose 116 mg/dL (65-99) H 03/26/17 21:15 Calcium 8.9 mg/dL (8.5-10.1) 03/26/17 21:15 Corrected Calcium 9.8 mg/dL (8.5-10.1) 03/26/17 21:15 Magnesium 2.4 mg/dL (1.7-2.9) 03/26/17 21:15 Total Bilirubin 0.20 mg/dL (0.2-1.0) 03/26/17 21:15 AST 10 Units/L (15-37) L 03/26/17 21:15 ALT 17 Units/L (12-78) 03/26/17 21:15 Alkaline Phosphatase 121 Units/L (46-116) H 03/26/17 21:15 Creatine Kinase 65 Units/L (26-192) 03/26/17 21:15 CK-MB (CK-2) < 1.0 ng/mL (0-4.0) 03/26/17 21:15 CK/CKMB % Calc 1.5 % (<4) 03/26/17 21:15 Troponin I < 0.02 ng/mL (0-1.5) 03/26/17 21:15 Total Protein 7.9 g/dL (6.4-8.2) 03/26/17 21:15 Albumin 2.9 g/dL (3.4-5.0) L 03/26/17 21:15 Globulin 5.0 g/dL (2.5-4.5) H 03/26/17 21:15 Albumin/Globulin Ratio 0.6 Ratio (1.1-2.1) L 03/26/17 21:15 - XRAY XRAY Interpreted by: Radiologist (CTA: No evidence for PTE. No acuate chest process. Mild emphysema. Mildly enlarged mediastinal and right hilar nodes. 4 mm right lower lobe pulmonary hodule. 9 mm hypodense thyroid nodule.) - EKG Rate: 82 [place]: Normal Rhythm: NSR Block: RBBB ST: Inf, Ischemia, Nonsp - Diagnosis Discharge Problem: Chest pain, Nodule of right lung, Thyroid nodule, Chest wall pain - Discharge Plan Disposition: 01 HOME, SELF-CARE Condition: Stable - Follow ups/Referrals Follow ups/Referrals: BASILIO MCCARTHY [Primary Care Provider] - 3 days - Instructions Instructions: Coronary Artery Disease, Female, Hypertension, [id number], Pulmonary Nodule, [id number], Thyroid Nodule, Hyperglycemia
[2017-03-26] MEDS ORDERED: NS 1000 ML 1,000 ML ONE (21:09)
[2017-03-26] MEDS ORDERED: MORPHINE SULFATE INJ 2 MG INJ ONE (21:10)
[2017-03-26 21:28] LABS: BASOPHILS # (AUTO) 0.1 X10^3/uL (0.0-0.1); BASOPHILS % (AUTO) 1.3 % (0.2-1.0); EOSINOPHILS # (AUTO) 0.2 x10^3/uL (0.0-0.2); EOSINOPHILS % (AUTO) 2.9 % (0.9-2.9); HEMATOCRIT 33.3 % (36.0-47.0); HEMOGLOBIN 11.5 g/dL (12.0-16.0); LYMPHOCYTES # (AUTO) 1.9 X10^3/uL (1.3-2.9); LYMPHOCYTES % (AUTO) 26.7 % (21.0-51.0); MEAN CORPUSCULAR HGB CONC 34.7 g/dL (33.0-35.0); MEAN CORPUSCULAR VOLUME 92.4 fL (80.0-100.0); MEAN PLATELET VOLUME 8.7 fL (7.4-11.0); MONOCYTES # (AUTO) 1.1 x10^3/uL (0.3-0.8); MONOCYTES % (AUTO) 15.7 % (0.0-13.0); NEUTROPHILS # (AUTO) 3.9 x10^3/uL (2.2-4.8); NEUTROPHILS % (AUTO) 53.4 % (42.0-75.0); PLATELET COUNT 257 X10^3/uL (150.0-450.0); RED BLOOD COUNT 3.61 X10^6/uL (3.5-5.4); RED CELL DISTRIBUTION WIDTH 12.3 % (11.6-16.5); WHITE BLOOD COUNT 7.3 X10^3/uL (3.6-10.0)
[2017-03-26 21:43] LABS: BLOOD UREA NITROGEN 14 mg/dL (7-18); CALCIUM 8.9 mg/dL (8.5-10.1); CARBON DIOXIDE 23.3 mmol/L (21-32); CHLORIDE 105 mmol/L (98-107); COR NA(FOR HYPERGLY) 140 mmol/L (136-145); SODIUM 140 mmol/L (136-145); TROPONIN I < 0.02 ng/mL (0-1.5); eGFR BLACK RACES > 60 (>60); eGFR NON BLACK RACES > 60 (>60)
[2017-03-26 21:47] LABS: ALANINE AMINOTRANSFERASE 17 Units/L (12-78); ALBUMIN 2.9 g/dL (3.4-5.0); ALKALINE PHOSPHATASE 121 Units/L (46-116); ASPARTATE AMINO TRANSFERASE 10 Units/L (15-37); COR CA(FOR HYPOALB) 9.8 mg/dL (8.5-10.1); CREATINE KINASE 65 Units/L (26-192); CREATINE KINASE MB < 1.0 ng/mL (0-4.0); MAGNESIUM 2.4 mg/dL (1.7-2.9); TOTAL PROTEIN 7.9 g/dL (6.4-8.2)
[2017-03-26 21:49] LABS: CKMB % 1.5 % (<4)
[2017-03-26] MEDS ORDERED: NS 1000 ML 1,000 ML IV SCH (22:00)
--- NOTE | 2017-03-26 23:00 | RAD ---
Chest, AP portable Indication: Chest pain Comparison: 03/17/2017 Findings: The heart size is normal. The lungs are essentially clear without dense infiltrate or large pleural effusion. Impression: No acute chest process or significant change. Reported By:
--- NOTE | 2017-03-26 23:24 | CT ---
CTA chest Indication: Chest pain Comparison: None Technique: CT images of the chest were obtained with contrast per protocol. Automatic exposure contro l was utilized. MIP images provided. Findings: No acute skeletal abnormality. Images through the upper abdomen are unremarkable. The heart size is normal, without significant pericardial thickening or pericardial effusion. Common origin of the innominate and left common carotid artery is incidentally noted. There is mild atherosc lerotic narrowing of the proximal left subclavian artery. The thoracic aorta is otherwise grossly unr emarkable, aside from scattered atherosclerotic calcifications. Evaluation of the smaller pulmonary a rteries is limited by suboptimal contrast bolus timing. Accounting for this, no pulmonary arterial fi lling defect is identified. There are several mildly enlarged mediastinal and right hilar lymph node s. There is mild upper lobe predominant emphysema. Mild bibasilar atelectasis. There is a 4 mm right low er lobe pulmonary nodule (image 71, series 5). No acute consolidation, pleural effusion, or pneumotho rax. The major airways are patent. There is a hypodense 9 mm left thyroid nodule. Impression: No evidence for PTE. No acute chest process. Mild emphysema. Mildly enlarged mediastinal and right hilar lymph nodes. These may be reactive, but correlation with any malignancy history is recommended. Consider PET-CT, if indicated. 4 mm right lower lobe pulmonary nodule. Consider CT follow-up in 12 months. 9 mm hypodense thyroid nodule could be followed non emergently with outpatient ultrasound. Reported By:
[2017-03-27 00:08] VITALS: BP 105/70
== END 2017-03-27 00:05 | disposition home or self-care (01) ==
LOC: ER 19:38
DX: R07.89 Other chest pain (principal); R91.1 Solitary pulmonary nodule; E04.1 Nontoxic single thyroid nodule
CPT/HCPCS: 36415; 71010; 71275; 80053; 82550; 82553; 83735; 84484; 85025; 85378; 85610; 85730; 93005; 93010; 96365; 96367; 96374; 99283; A4222; J2270

== ENCOUNTER 2017-04-08 20:44 | Emergency (ER) | payer MEDICAID ==
[2017-04-08 20:53] VITALS: BP 117/71; BMI 23.0
--- NOTE | 2017-04-08 21:38 | DR.GENAD ---
HPI - HPI Comment HPI Comment: GETTING WORSE. NO FEVER. DIFFICULTY SWALLOWING. NO N/V. - Complaint/Symptoms Chief Complaint Doctors Comments: SORE THROAT ONE DAY. Chief Complaint:: "sore throat" - Nurses notes reviewed Nurses Notes Review: Yes - Source History Provided: Patient - Mode of Arrival Mode of Arrival: Ambulatory - Timing Onset of Chief Complaint: 04/07/17 - Duration Duration: Constant Duration: Days - Severity Severity: Moderate PMH - PMH Past Medical History: Yes Past Medical History: Arthritis, CHF, Hypertension Past Medical History Comment: Takes Coreg and amlodipine Past Surgical History: No Surgical History: Other - Family History History of Family Medical Conditions: Yes Family Medical History: Diabetes Mellitus Family Medical History Comment: Brother DM, BIPASS - Social History Does patient currently use any type of tobacco product: No Have you used tobacco products in the last 12 months: No Type of Tobacco Use: None Does any household member use tobacco: No Alcohol Use: None Do you use any recreational Drugs:: No Lives With: Family Lives Where: Home - infectious screening In the last 2 months have you had wt loss of >10#?: NO Have you had fever, night sweats or hemotysis?: No Have you traveled outside the country in the last 6 months?: No ROS - Review of Systems Constitutional: No Symptoms Reported Eyes: No Symptoms Reported ENTM: Throat Pain. negative: Ear Pain, Nose Discharge, Nose Congestion Respiratoy: No Symptoms Reported Cardiovascular: No Symptoms Reported Gastrointestinal/Abdominal: No Symptoms Reported Genitourinary: No Symptoms Reported Neurological: No Symptoms Reported Musculoskeletal: No Symptoms Reported Integumentary: No Symptoms Reported Hematologic/Lymphatic: No Symptoms Reported Endocrine: No Symptoms Reported All Other Systems: Reviewed and Negative PE - Vital Signs Vitals: Temperature 98.1 F Pulse Rate 83 Respiratory Rate 16 Blood Pressure [Right Arm] 105/70 Blood Pressure [Left Arm] 124/77 Blood Pressure 117/71 O2 Sat by Pulse Oximetry 95 - General Limitations: No Limitations General Appearance: Alert - Head Head Exam: Normal Inspection - Eyes Eye exam: Normal Appearance - ENT ENT Exam: Normal External Ear Exam External Ear Exam: Normal External Inspection TM/Canal Exam: Left Bulging Nose Exam: Normal Nose Exam Mouth Exam: Normal Inspection Throat Exam: Tonsillar Erythema. negative: Tonsillomegaly, Tonsillar Exudate - Neck Neck Exam: Trachea Midline. negative: Tenderness, Meningismus, Lymphadenopathy - Chest Chest Inspection: Symmetric Chest Wall Rise - Respiratory Respiratory Exam: Normal Lung Sounds Bilat Respiratory Exam: Bilateral Clear to Auscultation - Cardiovascular Cardiovascular Exam: Regular Rate, Normal Rhythm, Normal Heart Sounds - Abdominal Exam Abdominal Exam: Normal Inspection - Extremities Extremities Exam: Normal Inspection - Back Back Exam: Normal Inspection - Neurologic Neurological Exam: Alert, Oriented X3 - Psychiatric Psychiatric Exam: Normal Affect, Normal Mood - Skin Skin Exam: Normal Color MDM - Differential Diagnosis Differential Diagnosis: PARYNGITIS, SINUSITIS, DYSPHAGIA Course - Treatment Treatment: SEE ORDERS. - Education/Counseling Education/Counseling: Patient, Education Educated On: Treatment, Diagnosis, Needs for Follow Up ROR - Labs Reviewed Laboratory Results Reviewed?: Yes Result Diagrams: 04/08/17 21:48 04/08/17 21:48 Laboratory: WBC 8.2 X10^3/uL (3.6-10.0) 04/08/17 21:48 RBC 3.51 X10^6/uL (3.5-5.4) 04/08/17 21:48 Hgb 11.0 g/dL (12.0-16.0) L 04/08/17 21:48 Hct 32.2 % (36.0-47.0) L 04/08/17 21:48 MCV 91.8 fL (80.0-100.0) 04/08/17 21:48 MCH 31.3 pg (27.0-34.0) 04/08/17 21:48 MCHC 34.1 g/dL (33.0-35.0) 04/08/17 21:48 RDW 12.4 % (11.6-16.5) 04/08/17 21:48 Plt Count 292 X10^3/uL (150.0-450.0) 04/08/17 21:48 MPV 8.7 fL (7.4-11.0) 04/08/17 21:48 Neut % 54.4 % (42.0-75.0) 04/08/17 21:48 Lymph % 31.5 % (21.0-51.0) 04/08/17 21:48 [place] % 10.6 % (0.0-13.0) 04/08/17 21:48 Eos % 2.8 % (0.9-2.9) 04/08/17 21:48 Baso % 0.7 % (0.2-1.0) 04/08/17 21:48 Neut # 4.5 x10^3/uL (2.2-4.8) 04/08/17 21:48 Lymph # 2.6 X10^3/uL (1.3-2.9) 04/08/17 21:48 [place] # 0.9 x10^3/uL (0.3-0.8) H 04/08/17 21:48 Eos # 0.2 x10^3/uL (0.0-0.2) 04/08/17 21:48 Baso # 0.1 X10^3/uL (0.0-0.1) 04/08/17 21:48 Absolute Nucleated RBC 0.0 /100WBC 04/08/17 21:48 Sodium 144 mmol/L (136-145) 04/08/17 21:48 Corrected Sodium TNP 04/08/17 21:48 Potassium 3.9 mmol/L (3.5-5.1) 04/08/17 21:48 Chloride 108 mmol/L (98-107) H 04/08/17 21:48 Carbon Dioxide 25.9 mmol/L (21-32) 04/08/17 21:48 BUN 12 mg/dL (7-18) 04/08/17 21:48 Creatinine 0.91 mg/dL (0.55-1.02) 04/08/17 21:48 Est GFR (MDRD) Af Amer > 60 (>60) 04/08/17 21:48 Est GFR (MDRD) Non-Af > 60 (>60) 04/08/17 21:48 Glucose 92 mg/dL (65-99) 04/08/17 21:48 Calcium 9.0 mg/dL (8.5-10.1) 04/08/17 21:48 Corrected Calcium 10.0 mg/dL (8.5-10.1) 04/08/17 21:48 Total Bilirubin 0.20 mg/dL (0.2-1.0) 04/08/17 21:48 AST 15 Units/L (15-37) 04/08/17 21:48 ALT 16 Units/L (12-78) 04/08/17 21:48 Alkaline Phosphatase 122 Units/L (46-116) H 04/08/17 21:48 Total Protein 8.0 g/dL (6.4-8.2) 04/08/17 21:48 Albumin 2.8 g/dL (3.4-5.0) L 04/08/17 21:48 Globulin 5.2 g/dL (2.5-4.5) H 04/08/17 21:48 Albumin/Globulin Ratio 0.5 Ratio (1.1-2.1) L 04/08/17 21:48 Monoscreen Negative (NEGATIVE) 04/08/17 21:48 Streptococcus Screen Negative (NEGATIVE) 04/08/17 21:09 - Diagnosis Discharge Problem: Sorethroat Dysphagia Qualifiers: Dysphagia type: unspecified Qualified Code(s): R13.10 - Dysphagia, unspecified - Discharge Plan Disposition: HOME, SELF-CARE Condition: Stable Prescriptions: Acetaminophen with Codeine [Tylenol/Codeine #3 300-30 mg] 1 tab PO Q8H PRN #12 tab PRN Reason: Pain Naproxen [Naprosyn] 500 mg PO TID PRN #20 tab PRN Reason: Pain/Inflammation - Follow ups/Referrals Follow ups/Referrals: BASILIO MCCARTHY [Primary Care Provider] - 3 days - Instructions Instructions: Dysphagia Additional Instructions: RETURN TO ED IF WORSE, YOU HAVE SORE THROAT, CAUSE TO BE DETERMINE. SEE YOUR PCP TUESDAY FOR FURTHER EVALUATION.
[2017-04-08 22:15] LABS: BASOPHILS # (AUTO) 0.1 X10^3/uL (0.0-0.1); BASOPHILS % (AUTO) 0.7 % (0.2-1.0); EOSINOPHILS # (AUTO) 0.2 x10^3/uL (0.0-0.2); EOSINOPHILS % (AUTO) 2.8 % (0.9-2.9); HEMATOCRIT 32.2 % (36.0-47.0); LYMPHOCYTES # (AUTO) 2.6 X10^3/uL (1.3-2.9); LYMPHOCYTES % (AUTO) 31.5 % (21.0-51.0); MEAN CORPUSCULAR HEMOGLOBIN 31.3 pg (27.0-34.0); MEAN CORPUSCULAR HGB CONC 34.1 g/dL (33.0-35.0); MEAN CORPUSCULAR VOLUME 91.8 fL (80.0-100.0); MEAN PLATELET VOLUME 8.7 fL (7.4-11.0); MONOCYTES # (AUTO) 0.9 x10^3/uL (0.3-0.8); MONOCYTES % (AUTO) 10.6 % (0.0-13.0); NEUTROPHILS # (AUTO) 4.5 x10^3/uL (2.2-4.8); NEUTROPHILS % (AUTO) 54.4 % (42.0-75.0); PLATELET COUNT 292 X10^3/uL (150.0-450.0); RED BLOOD COUNT 3.51 X10^6/uL (3.5-5.4); RED CELL DISTRIBUTION WIDTH 12.4 % (11.6-16.5); WHITE BLOOD COUNT 8.2 X10^3/uL (3.6-10.0)
[2017-04-08 22:25] LABS: ALANINE AMINOTRANSFERASE 16 Units/L (12-78); ALBUMIN 2.8 g/dL (3.4-5.0); ALKALINE PHOSPHATASE 122 Units/L (46-116); ASPARTATE AMINO TRANSFERASE 15 Units/L (15-37); BLOOD UREA NITROGEN 12 mg/dL (7-18); CARBON DIOXIDE 25.9 mmol/L (21-32); CHLORIDE 108 mmol/L (98-107); CREATININE 0.91 mg/dL (0.55-1.02); SODIUM 144 mmol/L (136-145); eGFR BLACK RACES > 60 (>60); eGFR NON BLACK RACES > 60 (>60)
[2017-04-08] MEDS ORDERED: NAPROSYN PO ONE ×2 (22:58→23:07)
[2017-04-08] MEDS ORDERED: TYLENOL #3 TAB (W/CODEINE) PO ONE ×2 (22:59→23:07)
== END 2017-04-08 23:44 | disposition home or self-care (01) ==
LOC: ER 20:56
DX: J02.9 Acute pharyngitis, unspecified (principal); R13.10 Dysphagia, unspecified
CPT/HCPCS: 36415; 80053; 85025; 86308; 87070; 87880; 99282; 99283

== ENCOUNTER → 2017-05-06 | Outpatient (CLI) | payer MEDICAID ==
[2017-04-08 20:53] VITALS: BP 117/71
[2017-05-06 08:57] LABS: BASOPHILS % (AUTO) 0.7 % (0.2-1.0); EOSINOPHILS # (AUTO) 0.3 x10^3/uL (0.0-0.2); EOSINOPHILS % (AUTO) 4.8 % (0.9-2.9); HEMATOCRIT 37.8 % (36.0-47.0); HEMOGLOBIN 12.7 g/dL (12.0-16.0); LYMPHOCYTES # (AUTO) 1.7 X10^3/uL (1.3-2.9); LYMPHOCYTES % (AUTO) 32.7 % (21.0-51.0); MEAN CORPUSCULAR HEMOGLOBIN 31.3 pg (27.0-34.0); MEAN CORPUSCULAR HGB CONC 33.6 g/dL (33.0-35.0); MEAN CORPUSCULAR VOLUME 93.1 fL (80.0-100.0); MEAN PLATELET VOLUME 9.5 fL (7.4-11.0); MONOCYTES # (AUTO) 0.5 x10^3/uL (0.3-0.8); MONOCYTES % (AUTO) 10.1 % (0.0-13.0); NEUTROPHILS # (AUTO) 2.7 x10^3/uL (2.2-4.8); NEUTROPHILS % (AUTO) 51.7 % (42.0-75.0); PLATELET COUNT 219 X10^3/uL (150.0-450.0); RED BLOOD COUNT 4.06 X10^6/uL (3.5-5.4); RED CELL DISTRIBUTION WIDTH 13.7 % (11.6-16.5); WHITE BLOOD COUNT 5.3 X10^3/uL (3.6-10.0)
[2017-05-06 09:17] LABS: ALANINE AMINOTRANSFERASE 20 Units/L (12-78); ALBUMIN 3.1 g/dL (3.4-5.0); ALKALINE PHOSPHATASE 120 Units/L (46-116); ASPARTATE AMINO TRANSFERASE 17 Units/L (15-37); BLOOD UREA NITROGEN 14 mg/dL (7-18); CARBON DIOXIDE 27.7 mmol/L (21-32); CHLORIDE 108 mmol/L (98-107); CHOL/HDL RATIO 6.3 (0.0-5.0); CHOLESTEROL 169 mg/dL (0-200); COR CA(FOR HYPOALB) 9.7 mg/dL (8.5-10.1); CREATININE 1.04 mg/dL (0.55-1.02); FREE T4 (FREE THYROXINE) 1.22 ng/dL (0.76-1.46); HDL CHOLESTEROL 27 mg/dL (40-60); SODIUM 143 mmol/L (136-145); TOTAL PROTEIN 7.8 g/dL (6.4-8.2); TRIGLYCERIDES 163 mg/dL (0-150); TSH (3RD GENERATION) 1.241 uIU/mL (0.358-3.74); eGFR BLACK RACES > 60 (>60); eGFR NON BLACK RACES 57 (>60)
[2017-05-06 09:33] LABS: ERYTHROCYTE SEDIMENTATION RATE 31 MM/HOUR (0-20)
[2017-05-06 11:12] LABS: CREATINE KINASE MB < 1.0 ng/mL (0-4.0); TROPONIN I 0.02 ng/mL (0-1.5)
[2017-05-06 11:51] LABS: RHEUMATOID FACTOR NEGATIVE (NEGATIVE)
== END ==
LOC: LAB 08:05
PROVIDERS: ATTEND Nurse Practitioner Family
DX: R40.1 Stupor (principal); R79.1 Abnormal coagulation profile; E78.2 Mixed hyperlipidemia; M15.0 Primary generalized (osteo)arthritis
CPT/HCPCS: 36415; 80053; 80061; 82550; 82552; 82553; 82671; 84439; 84443; 84481; 84484; 85025; 85378; 85652; 86140; 86308; 86316; 86430

== ENCOUNTER → 2017-05-20 | Outpatient (CLI) | payer MEDICAID ==
[2017-05-20 08:55] LABS: BASOPHILS % (AUTO) 0.6 % (0.2-1.0); EOSINOPHILS # (AUTO) 0.2 x10^3/uL (0.0-0.2); EOSINOPHILS % (AUTO) 3.6 % (0.9-2.9); HEMATOCRIT 38.4 % (36.0-47.0); LYMPHOCYTES # (AUTO) 1.9 X10^3/uL (1.3-2.9); LYMPHOCYTES % (AUTO) 31.7 % (21.0-51.0); MEAN CORPUSCULAR HEMOGLOBIN 31.3 pg (27.0-34.0); MEAN CORPUSCULAR HGB CONC 33.7 g/dL (33.0-35.0); MEAN CORPUSCULAR VOLUME 92.9 fL (80.0-100.0); MEAN PLATELET VOLUME 8.5 fL (7.4-11.0); MONOCYTES # (AUTO) 0.7 x10^3/uL (0.3-0.8); MONOCYTES % (AUTO) 12.5 % (0.0-13.0); NEUTROPHILS # (AUTO) 3.1 x10^3/uL (2.2-4.8); NEUTROPHILS % (AUTO) 51.6 % (42.0-75.0); PLATELET COUNT 192 X10^3/uL (150.0-450.0); RED BLOOD COUNT 4.14 X10^6/uL (3.5-5.4); RED CELL DISTRIBUTION WIDTH 14.2 % (11.6-16.5); WHITE BLOOD COUNT 5.9 X10^3/uL (3.6-10.0)
[2017-05-20 09:24] LABS: ALANINE AMINOTRANSFERASE 21 Units/L (12-78); ALBUMIN 3.2 g/dL (3.4-5.0); ALKALINE PHOSPHATASE 130 Units/L (46-116); ASPARTATE AMINO TRANSFERASE 19 Units/L (15-37); BILIRUBIN,DIRECT < 0.05 mg/dL (0-0.2); BLOOD UREA NITROGEN 14 mg/dL (7-18); CALCIUM 8.9 mg/dL (8.5-10.1); CARBON DIOXIDE 29.2 mmol/L (21-32); CHLORIDE 107 mmol/L (98-107); CHOL/HDL RATIO 6.9 (0.0-5.0); CHOLESTEROL 199 mg/dL (0-200); CREATININE 0.96 mg/dL (0.55-1.02); HDL CHOLESTEROL 29 mg/dL (40-60); SODIUM 142 mmol/L (136-145); TOTAL PROTEIN 7.8 g/dL (6.4-8.2); TRIGLYCERIDES 169 mg/dL (0-150); eGFR BLACK RACES > 60 (>60); eGFR NON BLACK RACES > 60 (>60)
== END ==
LOC: LAB 08:29
PROVIDERS: ATTEND Physician Assistant
DX: R53.83 Other fatigue (principal); E78.4 Other hyperlipidemia
CPT/HCPCS: 36415; 80048; 80061; 80076; 85025

== ENCOUNTER → 2017-07-12 | Outpatient (CLI) | payer MEDICAID ==
--- NOTE | 2017-07-12 08:17 | RAD ---
Exam: Chest two views History: 62-year-old female. Fluid reportedly removed from lungs Comparison: Previous chest radiograph from 03/26/2017 Findings: Heart size and pulmonary vasculature are normal. Lungs are clear with no infiltrate or sign ificant effusion on either side. IMPRESSION: No acute cardiopulmonary abnormality is seen on this exam. Reported By:
[2017-07-12 08:18] LABS: ABG ALLEN TEST POS; ABG BASE EXCESS 3.1 mmol/L (-2.0-2.0)
== END ==
LOC: RT 07:50
PROVIDERS: ATTEND Nurse Practitioner Family
DX: R06.02 Shortness of breath (principal)
CPT/HCPCS: 36600; 71046; 82803

== ENCOUNTER 2017-07-18 18:01 | Emergency (ER) | payer MEDICAID ==
[2017-07-18 18:10] VITALS: BP 112/72; BMI 21.6
[2017-07-18] MEDS ORDERED: ZOFRAN INJ 4 MG VIAL IVP ONE (18:45)
[2017-07-18] MEDS ORDERED: NS 1000 ML 1,000 ML IV ONE (18:45)
[2017-07-18] MEDS ORDERED: PEPCID 20 MG IV PREMIX* 20 MG/50 ML BAG IV ONE (18:46)
--- NOTE | 2017-07-18 18:47 | DR.EXTPAIN ---
HPI - Time seen Time seen: 18:35 - PCP Primary Care Physician: LILIYA SORIANO DR, MADONNA. - HPI Comment HPI Comment: HAVE PVD PENDING SURGERY. - Complaint/Symptoms Chief Complaint Doctor Comments: RIGHT LEG PAIN NOT RESPONDING TO MEDICATION AT HOME. Chief Complaint:: PT C/O HAVING PAIN TO HER RIGHT LEG AND SHE C/O LAYING DOWN AND PT C/O PAIN ALL THE WAY DOWN HER LEG TO HER FOOT,,, PT STATES SHE HAS A 75% BLOCKAGE AND SHE WAS PLACED ON MEDS AND THEY ARE NOT WORKING AND SHE DOES NOT KNOW WHAT THEY ARE , BR - Nurses notes reviewed Nurses Notes Review: Yes - Source History Provided: Patient - Mode of arrival Mode of Arrival: Ambulatory - Timing Onset of Chief Complaint: 07/18/17 - Context History of: Arthritis - Associated signs and symptoms Associated Signs and Symptoms: None PMH - PMH Past Medical History: Yes Past Medical History: CHF, Hypertension Past Surgical History: Yes Surgical History: Other - Family History History of Family Medical Conditions: Yes Family Medical History: Diabetes Mellitus - Social History Does patient currently use any type of tobacco product: No Have you used tobacco products in the last 12 months: No Type of Tobacco Use: None Does any household member use tobacco: No Alcohol Use: None Do you use any recreational Drugs:: No Lives With: Family Lives Where: Home - infectious screening In the last 2 months have you had wt loss of >10#?: NO Have you had fever, night sweats or hemotysis?: No Have you traveled outside the country in the last 6 months?: No Isolation: Standard ROS - Review of Systems Constitutional: No Symptoms Reported Eyes: No Symptoms Reported ENTM: No Symptoms Reported Respiratoy: No Symptoms Reported Cardiovascular: No Symptoms Reported Gastrointestinal/Abdominal: No Symptoms Reported Genitourinary: No Symptoms Reported Neurological: No Symptoms Reported Musculoskeletal: Leg (PAIN RLE) Integumentary: No Symptoms Reported, Other (NEGATIVE REDNESS OR COLOR CHANGE.) Hematologic/Lymphatic: No Symptoms Reported Endocrine: No Symptoms Reported All Other Systems: Reviewed and Negative PE - Vital Signs Vitals: Temperature 97.0 F Pulse Rate 96 Respiratory Rate 18 Blood Pressure [Right Arm] 105/70 Blood Pressure [Left Arm] 124/77 Blood Pressure 112/72 O2 Sat by Pulse Oximetry 100 - General Limitations: No Limitations General Appearance: Alert - Head Head Exam: Normal Inspection - Eyes Eye exam: Normal Appearance - ENT ENT Exam: Normal External Ear Exam - Neck Neck Exam: Trachea Midline - Chest Chest Inspection: Symmetric Chest Wall Rise - Respiratory Respiratory Exam: Normal Lung Sounds Bilat Respiratory Exam: Bilateral Clear to Auscultation - Cardiovascular Cardiovascular Exam: Regular Rate, Normal Rhythm, Normal Heart Sounds, Other ( PULSES PRESENT BUL DECREASE. IN RT LEG.) - Abdominal Exam Abdominal Exam: Normal Bowel Sounds. negative: Tenderness - Extremities Extremities Exam: Normal Inspection MDM - Differential Diagnosis Differential Diagnosis: Other (PVD, INTERMITTENT CLAUDICATION, NEUROPATHY) Course - Treatment Treatment: SEE ORDERS. IM MED IN ED. PAIN IMPROVE. - Reevaluation 1st: Improved - Education/Counseling Education/Counseling: Patient, Family, Education Educated On: Diagnosis, Needs for Follow Up ROR - Labs Reviewed Laboratory Results Reviewed?: Yes Result Diagrams: 07/18/17 18:56 03 18:56 Laboratory: WBC 7.2 X10^3/uL (3.6-10.0) 07/18/17 18:56 RBC 4.14 X10^6/uL (3.5-5.4) 07/18/17 18:56 Hgb 13.0 g/dL (12.0-16.0) 07/18/17 18:56 Hct 38.2 % (36.0-47.0) 07/18/17 18:56 MCV 92.3 fL (80.0-100.0) 07/18/17 18:56 MCH 31.4 pg (27.0-34.0) 07/18/17 18:56 MCHC 34.0 g/dL (33.0-35.0) 07/18/17 18:56 RDW 14.0 % (11.6-16.5) 07/18/17 18:56 Plt Count 185 X10^3/uL (150.0-450.0) 07/18/17 18:56 MPV 9.7 fL (7.4-11.0) 07/18/17 18:56 Neut % (Auto) 52.7 % (42.0-75.0) 07/18/17 18:56 Lymph % (Auto) 30.9 % (21.0-51.0) 07/18/17 18:56 [place] % (Auto) 13.2 % (0.0-13.0) H 03/26/18 18:56 Eos % (Auto) 2.5 % (0.9-2.9) 07/18/17 18:56 Baso % (Auto) 0.7 % (0.2-1.0) 07/18/17 18:56 Neut # (Auto) 3.8 x10^3/uL (2.2-4.8) 07/18/17 18:56 Lymph # (Auto) 2.2 X10^3/uL (1.3-2.9) 07/18/17 18:56 [place] # (Auto) 1.0 x10^3/uL (0.3-0.8) H 07/18/17 18:56 Eos # (Auto) 0.2 x10^3/uL (0.0-0.2) 07/18/17 18:56 Baso # (Auto) 0.1 X10^3/uL (0.0-0.1) 07/18/17 18:56 Absolute Nucleated RBC 0.0 /100WBC 07/18/17 18:56 Sodium 143 mmol/L (136-145) 07/18/17 18:56 Corrected Sodium 143 mmol/L (136-145) 07/18/17 18:56 Potassium 4.4 mmol/L (3.5-5.1) 07/18/17 18:56 Chloride 106 mmol/L (98-107) 07/18/17 18:56 Carbon Dioxide 26.7 mmol/L (21-32) 07/18/17 18:56 BUN 11 mg/dL (7-18) 07/18/17 18:56 Creatinine 1.01 mg/dL (0.55-1.02) 07/18/17 18:56 Est GFR (MDRD) Af Amer > 60 (>60) 07/18/17 18:56 Est GFR (MDRD) Non-Af 59 (>60) 07/18/17 18:56 Glucose 114 mg/dL (65-99) H 07/18/17 18:56 Calcium 8.6 mg/dL (8.5-10.1) 07/18/17 18:56 Corrected Calcium 9.2 mg/dL (8.5-10.1) 07/18/17 18:56 Total Bilirubin 0.20 mg/dL (0.2-1.0) 07/18/17 18:56 AST 16 Units/L (15-37) 07/18/17 18:56 ALT 28 Units/L (12-78) 07/18/17 18:56 Alkaline Phosphatase 146 Units/L (46-116) H 07/18/17 18:56 Total Protein 8.0 g/dL (6.4-8.2) 07/18/17 18:56 Albumin 3.3 g/dL (3.4-5.0) L 07/18/17 18:56 Globulin 4.7 g/dL (2.5-4.5) H 07/18/17 18:56 Albumin/Globulin Ratio 0.7 Ratio (1.1-2.1) L 07/18/17 18:56 Amylase Cancelled 07/18/17 18:56 Lipase Cancelled 07/18/17 18:56 Specimen Type Clean catch urine 07/18/17 19:34 Urine Color Yellow (YELLOW) 07/18/17 19:34 Urine Appearance Hazy (CLEAR) 07/18/17 19:34 Urine pH 6.0 (5.0 - 8.0) 07/18/17 19:34 Ur Specific [place] 1.015 (1.000-1.030) 07/18/17 19:34 Urine Protein 2+ (NEGATIVE) 07/18/17 19:34 Urine Glucose (UA) Negative (NEGATIVE) 07/18/17 19:34 Urine Ketones Negative (NEGATIVE) 07/18/17 19:34 Urine Occult Blood Negative (NEGATIVE) 07/18/17 19:34 Urine Nitrite Negative (NEGATIVE) 07/18/17 19:34 Urine Bilirubin Negative (NEGATIVE) 07/18/17 19:34 Urine Urobilinogen 1+ (NORMAL) 07/18/17 19:34 Ur Leukocyte Esterase 2+ (NEGATIVE) 07/18/17 19:34 Urine RBC 0-2 /HPF (NONE SEEN) 07/18/17 19:34 Urine WBC 3-5 /HPF (NONE SEEN) 07/18/17 19:34 Ur Squamous Epith Cells Numerous /HPF (NEGATIVE) 07/18/17 19:34 Urine Bacteria Trace /HPF (NEGATIVE) 07/18/17 19:34 Urine Mucus Few /HPF (NEGATIVE) 07/18/17 19:34 Ur Culture Indicated? No/not indicated 07/18/17 19:34 - Diagnosis Discharge Problem: Intermittent claudication, PVD (peripheral vascular disease) - Discharge Plan Disposition: 01 HOME, SELF-CARE Condition: Stable - Follow ups/Referrals Follow ups/Referrals: NFD,None [Primary Care Provider] - 3 days - Instructions Instructions: Intermittent Claudication
[2017-07-18 19:22] LABS: BASOPHILS # (AUTO) 0.1 X10^3/uL (0.0-0.1); BASOPHILS % (AUTO) 0.7 % (0.2-1.0); EOSINOPHILS # (AUTO) 0.2 x10^3/uL (0.0-0.2); EOSINOPHILS % (AUTO) 2.5 % (0.9-2.9); HEMATOCRIT 38.2 % (36.0-47.0); LYMPHOCYTES # (AUTO) 2.2 X10^3/uL (1.3-2.9); LYMPHOCYTES % (AUTO) 30.9 % (21.0-51.0); MEAN CORPUSCULAR HEMOGLOBIN 31.4 pg (27.0-34.0); MEAN CORPUSCULAR VOLUME 92.3 fL (80.0-100.0); MEAN PLATELET VOLUME 9.7 fL (7.4-11.0); MONOCYTES % (AUTO) 13.2 % (0.0-13.0); NEUTROPHILS # (AUTO) 3.8 x10^3/uL (2.2-4.8); NEUTROPHILS % (AUTO) 52.7 % (42.0-75.0); PLATELET COUNT 185 X10^3/uL (150.0-450.0); RED BLOOD COUNT 4.14 X10^6/uL (3.5-5.4); WHITE BLOOD COUNT 7.2 X10^3/uL (3.6-10.0)
[2017-07-18 19:33] LABS: ALANINE AMINOTRANSFERASE 28 Units/L (12-78); ALBUMIN 3.3 g/dL (3.4-5.0); ALKALINE PHOSPHATASE 146 Units/L (46-116); ASPARTATE AMINO TRANSFERASE 16 Units/L (15-37); BLOOD UREA NITROGEN 11 mg/dL (7-18); CALCIUM 8.6 mg/dL (8.5-10.1); CARBON DIOXIDE 26.7 mmol/L (21-32); CHLORIDE 106 mmol/L (98-107); COR CA(FOR HYPOALB) 9.2 mg/dL (8.5-10.1); COR NA(FOR HYPERGLY) 143 mmol/L (136-145); CREATININE 1.01 mg/dL (0.55-1.02); SODIUM 143 mmol/L (136-145); eGFR BLACK RACES > 60 (>60); eGFR NON BLACK RACES 59 (>60)
[2017-07-18] MEDS ORDERED: ZOFRAN INJ 4 MG VIAL IM ONE (19:33)
[2017-07-18] MEDS ORDERED: MORPHINE SULFATE INJ 4 MG IM ONE (19:33)
[2017-07-18] MEDS ORDERED: ZOFRAN INJ 4 MG VIAL ONE (19:35)
[2017-07-18] MEDS ORDERED: MORPHINE SULFATE INJ 4 MG ONE (19:35)
[2017-07-18 19:39] LABS: BILIRUBIN,URINE NEGATIVE (NEGATIVE); BLOOD/HEMOGLOBIN,URINE NEGATIVE (NEGATIVE); GLUCOSE, URINE NEGATIVE (NEGATIVE); KETONES,URINE NEGATIVE (NEGATIVE); LEUKOCYTE ESTERASE ,URINE 2+ (NEGATIVE); NITRITES,URINE NEGATIVE (NEGATIVE); PROTEIN,URINE 2+ (NEGATIVE); UROBILINOGEN,URINE 1+ (NORMAL)
[2017-07-18 19:40] LABS: APPEARANCE,URINE HAZY (CLEAR); COLOR,URINE YELLOW (YELLOW)
[2017-07-18 19:46] LABS: RBC,URINE 0-2 /HPF (NONE SEEN); SQUAMOUS EPITHELIAL CELL,UR NUMEROUS /HPF (NEGATIVE)
[2017-07-18 19:47] LABS: BACTERIA,URINE TRACE /HPF (NEGATIVE); MUCUS,URINE FEW /HPF (NEGATIVE)
== END 2017-07-18 20:36 | disposition home or self-care (01) ==
LOC: ER 18:01
DX: I73.9 Peripheral vascular disease, unspecified (principal)
CPT/HCPCS: 36415; 80053; 81001; 85025; 96372; 99282; J2270; J2405

== ENCOUNTER → 2017-08-31 | Outpatient (CLI) | payer MEDICAID ==
[2017-08-31 11:33] LABS: CREATININE 1.05 mg/dL (0.55-1.02)
--- NOTE | 2017-08-31 14:52 | CT ---
HISTORY: Current aerated headache. Study: CT paranasal sinuses without contrast. Comparison: Head CT dated 11/29/2016. Technique: Multiple axial images of the paranasal sinuses were obtained without the administration of IV contrast. Coronal and sagittal reformats were performed and reviewed. Findings: The maxillary sinuses, anterior and posterior ethmoid air cells, sphenoid sinuses, and frontal sinuse s demonstrate no evidence for mucosal inflammatory disease. The right frontal sinus is small in size. The nasal septum is midline. The ostiomeatal units are grossly unremarkable without inflammatory c hange. The frontoethmoidal and sphenoethmoidal recesses are patent bilaterally. The included portions of the mastoid air cells are normally developed and well aerated bilaterally. The patient is edentul ous. There are degenerative changes of the cervical spine at C4-C5. Visualized portions of the poste rior fossa and intracranial structures are unremarkable. IMPRESSION: The paranasal sinuses are clear without CT evidence of acute or chronic sinusitis. Reported By:
--- NOTE | 2017-08-31 16:40 | VAS ---
HISTORY: Peripheral vascular disease Study: Bilateral lower extremity arterial pressure and waveform analysis Comparison: None Findings: Segmental pressure and waveform analysis of the right and left lower extremity were obtained from the common femoral artery to tibial vasculature. There were monophasic waveforms with diminished segmen jessica pressures throughout the right lower extremity suggesting significant underlying arterial occlusi ve disease. Abnormal ABIs on the right ranging from 0.59-0.6. Normal segmental pressures on the left with multiphasic waveforms seen throughout with the exception of the left dorsalis pedis where monoph asic waveforms are seen. ABIs on the left range from 0.82-86. IMPRESSION: 1. Abnormal right ABIs suggesting moderate to severe arterial occlusive disease. Monophasic waveforms are seen throughout the right lower extremity. Further evaluation with CTA runoff may be beneficial. 2. Mildly decreased ABIs on the left suggesting mild arterial disease with monophasic waveforms seen in the dorsalis pedis. Reported By:
--- NOTE | 2017-09-01 09:26 | CT ---
History: Peripheral vascular disease, preop for blockage of right femoral artery, right leg pain Study: CTA abdomen with the runoff without with contrast Findings: [address] imaging is performed from the upper abdomen through the feet prior to and d uring the intravenous administration of an unspecified amount or concentration of iodinated contrast. Coronal and sagittal MIPS images are submitted as well. Visualized portions of the liver and spleen appear unremarkable. The pancreas, gallbladder, adrenal glands and kidneys appear normal. Origins of the celiac axis and superior mesenteric artery are patent. Renal artery's are patent with limited ruddy que at the origin of the left renal artery. In the mid abdominal aorta there is circumferential calci fication with soft plaque producing mild aortic stenosis. The aortic bifurcation is patent with moder ate calcified plaque within the common iliac artery's with moderately severe stenosis on the right. T he right external iliac artery is completely occluded with reconstitution of flow in the common femor al artery with diffuse 50% stenosis. The right femoral bifurcation is patent with the superficial fem oral artery small. Within the distal aspect of the left external iliac artery is calcific and soft pl aque producing approximately 50% stenosis. The left femoral bifurcation is patent. Superficial femora l artery's are patent with scattered calcific plaque with mild stenosis at multiple levels. Popliteal artery's are patent there is occlusion of the left anterior tibial artery in the proximal calf. The posterior tibial artery's are tiny there appears to be occlusion of the posterior tibial artery in th e distal calf with reconstitution of flow the level the ankle. Left posterior tibial artery is patent to the ankle. Impression: There is complete occlusion of the right external iliac artery, left anterior tibial gabby ry proximally in the right posterior tibial artery distally. There is mild narrowing of the lumen of the abdominal aorta in its midportion. Reported By:
== END ==
LOC: RAD 11:02
PROVIDERS: ATTEND Psychiatry & Neurology Neurology
DX: I73.9 Peripheral vascular disease, unspecified (principal); R51 Headache; R94.39 Abnormal result of other cardiovascular function study
CPT/HCPCS: 36415; 70486; 73706; 82565; 84520; 93923; A4222

== ENCOUNTER 2019-02-21 18:39 | Inpatient (IN) ==
--- NOTE | 2019-02-21 19:03 | ED.ABDFE ---
HPI Time Seen Time Seen by Provider: 02/21/19 18:50 Complaint Doctors Chief Complaint Comments: Patient is a 64 year old female who presents for abdominal pain. She says it started yesterday. She states the pain is sharp. The pain is located on the left lower quadrant and radiates to the right. She a lso states she has diffuse pain. She says that she has been throwing up and not been able to tolerate PO for the past 24 hours. She state that she has not had a bowel movement in the past 24 hours in his constipated. She also states that the pain is getting worse. PMH PMH Past Medical History: CHF and Hypertension Past Surgical History: Yes Surgical History: Other Family History Family Medical History: Diabetes Mellitus Social History Do you use any recreational Drugs:: No infectious screening Isolation: Standard ROS Review of Systems Constitutional: No Symptoms Reported Eyes: No Symptoms Reported ENTM: No Symptoms Reported Respiratoy: No Symptoms Reported Cardiovascular: No Symptoms Reported Gastrointestinal/Abdominal: Abdominal Pain, Nausea, Vomiting and Other (decreased PO intake ) Genitourinary: No Symptoms Reported; negative Dysuria and Frequency Neurological: No Symptoms Reported Musculoskeletal: No Symptoms Reported Integumentary: No Symptoms Reported Hematologic/Lymphatic: No Symptoms Reported Psychiatric: No Symptoms Reported All Other Systems: Reviewed and Negative PE Vital Signs Vitals: Temperature 98.7 F Pulse Rate 109 Respiratory Rate 18 Blood Pressure [Right Arm] 141/78 Blood Pressure 142/85 O2 Sat by Pulse Oximetry 100 General General Appearance: Anxious and In Distress (abdominal pain holding stomach. ) Head Head Exam: Normal Inspection, Atraumatic and Normocephalic Eyes Eye exam: Normal Appearance and EOMI ENT ENT Exam: Normal Exam Neck Neck Exam: Normal Inspection and Full ROM Chest Chest Inspection: Normal Inspection Respiratory Respiratory Exam: Normal Lung Sounds Bilat and Accessory Muscle Use Respiratory Exam: Bilateral: Clear to Auscultation Cardiovascular Cardiovascular Exam: Regular Rate and Normal Rhythm Abdominal Exam Abdominal Exam: Normal Inspection, Normal Bowel Sounds and Soft Abdominal Tenderness: RUQ, Diffuse and Severe Back Back Exam: Normal Inspection and Full ROM Extremeties Extremities Exam: Normal Inspection and Full ROM Neurologic Neurological Exam: Alert, Oriented X3, CN II-XII Intact and Normal Gait Psychiatric Psychiatric Exam: Normal Affect, Normal Mood and Depressed Skin Skin Exam: Warm, Dry, Intact and Normal Color COURSE Treatment Treatment: Please see orders and ancillary notes in EMR for full details and course of ED visit. Critical Care: The probability of sudden, clinically significant deterioration in the patient's condition required the highest level of my preparedness to intervene urgently. The services I provided to this patient were to treat and/ or prevent clinically significant deterioration that could result in: . Services include the following: chart date review, reviewing nursing notes and/ or old charts, documentation time, library sales consultant collaboration regarding findings and treatment options, medication orders and management, direct patient care, vital sign assessments and ordering, interpreting and reviewing diagnostic studies/ lab tests. Aggregate critical care time was 30 minutes, which includes only the time during which I was engaged in work directly related to the patient's care, as described above, whether at the bedside or elsewhere in the Emergency Department. It did not include the time spent performing other reported procedures or the services of residents, students, nurses, or physician assistants. Reevaluation 1st: Improved (20:30 pt improved pain resolving ) 2nd: Improved (21:06 pt is sleeping, no isssues. ) 3rd: Unchanged (pt states that she is doing alright, 22:22 ) Consultation Called: 22:10 Call Returned: 22:10 Consultation Comments: Dr. Wong was consulted and case discussed. States admit and start antibiotic and make NPO Education/Counseling Education/Counseling: Patient, Family, Education and Counseling Educated On: Treatment, Diagnosis, Prognosis and Needs for Follow Up ROR Labs Reviewed Laboratory Results Reviewed?: Yes Result Diagrams: 02/21/19 19:18 02/21/19 19:18 Laboratory: WBC 10.0 X10^3/uL (3.6-10.0) 02/21/19 19:18 RBC 4.07 X10^6/uL (3.5-5.4) 02/21/19 19:18 Hgb 12.5 g/dL (12.0-16.0) 02/21/19 19:18 Hct 37.1 % (36.0-47.0) 02/21/19 19:18 MCV 91.3 fL (80.0-100.0) 02/21/19 19:18 MCH 30.8 pg (27.0-34.0) 02/21/19 19:18 MCHC 33.8 g/dL (33.0-35.0) 02/21/19 19:18 RDW 13.1 % (11.6-16.5) 02/21/19 19:18 Plt Count 186 X10^3/uL (150.0-450.0) 02/21/19 19:18 MPV 8.4 fL (7.4-11.0) 02/21/19 19:18 Neut % (Auto) 73.8 % (42.0-75.0) 02/21/19 19:18 Lymph % (Auto) 16.5 % (21.0-51.0) L 02/21/19 19:18 [place] % (Auto) 8.8 % (0.0-13.0) 02/21/19 19:18 Eos % (Auto) 0.3 % (0.9-2.9) L 02/21/19 19:18 Baso % (Auto) 0.6 % (0.2-1.0) 02/21/19 19:18 Neut # (Auto) 7.4 x10^3/uL (2.2-4.8) H 02/21/19 19:18 Lymph # (Auto) 1.6 X10^3/uL (1.3-2.9) 02/21/19 19:18 [place] # (Auto) 0.9 x10^3/uL (0.3-0.8) H 02/21/19 19:18 Eos # (Auto) 0.0 x10^3/uL (0.0-0.2) 02/21/19 19:18 Baso # (Auto) 0.1 X10^3/uL (0.0-0.1) 02/21/19 19:18 Absolute Nucleated RBC 0.0 /100WBC 02/21/19 19:18 Sodium 139 mmol/L (136-145) 02/21/19 19:18 Corrected Sodium TNP 02/21/19 19:18 Potassium 3.8 mmol/L (3.5-5.1) 02/21/19 19:18 Chloride 104 mmol/L (98-107) 02/21/19 19:18 Carbon Dioxide 25.3 mmol/L (21-32) 02/21/19 19:18 BUN 13 mg/dL (7-18) 02/21/19 19:18 Creatinine 1.22 mg/dL (0.55-1.02) H 02/21/19 19:18 Est GFR (MDRD) Af Amer 57 (>60) L 02/21/19 19:18 Est GFR (MDRD) Non-Af 47 (>60) L 02/21/19 19:18 Glucose 93 mg/dL (65-99) 02/21/19 19:18 Calcium 8.8 mg/dL (8.5-10.1) 02/21/19 19:18 Corrected Calcium 9.4 mg/dL (8.5-10.1) 02/21/19 19:18 Total Bilirubin 0.50 mg/dL (0.2-1.0) 02/21/19 19:18 AST 15 Units/L (15-37) 02/21/19 19:18 ALT 13 Units/L (12-78) 02/21/19 19:18 Alkaline Phosphatase 110 Units/L (46-116) 02/21/19 19:18 Total Protein 7.5 g/dL (6.4-8.2) 02/21/19 19:18 Albumin 3.3 g/dL (3.4-5.0) L 02/21/19 19:18 Globulin 4.2 g/dL (2.5-4.5) 02/21/19 19:18 Albumin/Globulin Ratio 0.8 Ratio (1.1-2.1) L 02/21/19 19:18 Lipase 92 Units/L (73-393) 02/21/19 19:18 Other Results Comments: [facility] [id number]: [id number] : 1955Sex: FLocation: ER Order Number(s): [id number](s):ABDOMEN/PELVIS WITH CON Ordering Physician: Juan Pablo Moe Primary Care: NFD,Norma Service Date: 02/21/19 Service Time: [address] abdomen and pelvis with contrast Indication: Right lower quadrant pain and nausea Comparison: 04/14/2018 Findings: Limited images through the lower chest show no acute abnormality. Review of bone windows shows no osseous lesion. Mild spine and pelvis DJD noted Abdomen: The liver, gallbladder, spleen, adrenal glands, pancreas, stomach and small bowel are normal. Oral contrast enters the cecum without obstruction. The appendix is markedly dilated and fluid-filled, with indistinct enhancement of the wall and marked surrounding stranding, abutting the right psoas muscle. The appendix measures up to 1.5 cm on axial image 52. No drainable collection is seen, although perforation is likely 2 already have occurred. Kidneys show no hydroureteronephrosis. Aortoiliac plaque noted, with infrarenal abdominal aortic ectasia noted on axial image 38 with a centric soft and calcified plaque measuring 2.4 x 2.4 cm. Iliac plaque noted with a stent seen in the right iliac artery. Pelvis: The urinary bladder and rectum are normal. Uterus and adnexa show no acute abnormality Impression: 1. Severe acute appendicitis with stranding and discontinuous enhancement of the wall. Perforation has presumably occurred. Surgical consultation recommended. No drainable collection seen. 2. Vascular plaque and infrarenal abdominal aortic ectasia, similar to the prior. Reported By:MARC STEWART MD Amended by MARC STEWART MD at 02/21/2019 10:01:26 PM Addendum: Clinically insignificant typographical error corrected Name: LETI PARHAM MAcct#: [id number]: [id number] : 1955Sex: FLocation: MED/SURG Order Number(s): [id number](s):CHEST, 1 VIEW Ordering Physician: Juan Pablo Moe Primary Care: NFD,None Service Date: 02/21/19 Service Time: 2215 Chest AP portable Indication: Abdominal pain Comparison 11/27/2018 Findings: There is no pneumothorax. Lungs are mildly hyperinflated. Heart size upper limits of normal no dense consolidation, overt edema or large effusion seen. Impression: Pulmonary hyperinflation and prominent heart size suggesting COPD. XRAY XRAY Interpreted by: Both EKG Compared to prior EKG Dated: 11/22/18 (read by Dr Moe, similar EKG ) Rate: 118 [place]: LAD Rhythm: ST Block: RBBB Hypertrophy: LAE ST: Old, Lat and Infarct Opioid Opioid Risk Tool Total: 0 Total Score Risk Category: Low Risk Copyright: Chucky ORELLANA predicting aberrant behaviors Diagnosis Discharge Problem: Acute appendicitis Qualifiers: Acute appendicitis type: with localized peritonitis Appendicitis gangrene presence: without gangrene Appendicitis perforation presence: with perforation Appendicitis abscess presence: unspecified whether abscess present Qualified Code(s): K35.32 - Acute appendicitis with perforation and localized peritonitis, without abscess Narrative Support Text: Admit to Dr. Wong @ 22:10 AM surgery
[2019-02-21] MEDS ORDERED: DEMEROL INJ IM ONE (19:21)
[2019-02-21] MEDS ORDERED: ZOFRAN INJ 4 MG VIAL IVP ONE (19:21)
[2019-02-21] MEDS ORDERED: ZOFRAN INJ 4 MG VIAL ONE ×2 (19:24→23:32)
[2019-02-21 19:25] LABS: BASOPHILS # (AUTO) 0.1 X10^3/uL (0.0-0.1); BASOPHILS % (AUTO) 0.6 % (0.2-1.0); EOSINOPHILS % (AUTO) 0.3 % (0.9-2.9); HEMATOCRIT 37.1 % (36.0-47.0); HEMOGLOBIN 12.5 g/dL (12.0-16.0); LYMPHOCYTES # (AUTO) 1.6 X10^3/uL (1.3-2.9); LYMPHOCYTES % (AUTO) 16.5 % (21.0-51.0); MEAN CORPUSCULAR HEMOGLOBIN 30.8 pg (27.0-34.0); MEAN CORPUSCULAR HGB CONC 33.8 g/dL (33.0-35.0); MEAN CORPUSCULAR VOLUME 91.3 fL (80.0-100.0); MEAN PLATELET VOLUME 8.4 fL (7.4-11.0); MONOCYTES # (AUTO) 0.9 x10^3/uL (0.3-0.8); MONOCYTES % (AUTO) 8.8 % (0.0-13.0); NEUTROPHILS # (AUTO) 7.4 x10^3/uL (2.2-4.8); NEUTROPHILS % (AUTO) 73.8 % (42.0-75.0); PLATELET COUNT 186 X10^3/uL (150.0-450.0); RED BLOOD COUNT 4.07 X10^6/uL (3.5-5.4); RED CELL DISTRIBUTION WIDTH 13.1 % (11.6-16.5)
[2019-02-21] MEDS ORDERED: DEMEROL INJ ONE ×2 (19:25→23:32)
[2019-02-21] MEDS ORDERED: DEMEROL INJ IVP ONE (19:41)
[2019-02-21 19:43] LABS: ALANINE AMINOTRANSFERASE 13 Units/L (12-78); ALBUMIN 3.3 g/dL (3.4-5.0); ALKALINE PHOSPHATASE 110 Units/L (46-116); ASPARTATE AMINO TRANSFERASE 15 Units/L (15-37); BLOOD UREA NITROGEN 13 mg/dL (7-18); CALCIUM 8.8 mg/dL (8.5-10.1); CARBON DIOXIDE 25.3 mmol/L (21-32); CHLORIDE 104 mmol/L (98-107); COR CA(FOR HYPOALB) 9.4 mg/dL (8.5-10.1); CREATININE 1.22 mg/dL (0.55-1.02); LIPASE 92 Units/L (73-393); SODIUM 139 mmol/L (136-145); TOTAL PROTEIN 7.5 g/dL (6.4-8.2); eGFR NON BLACK RACES 47 (>60)
[2019-02-21] MEDS ORDERED: NS 100 ML IV 100 ML IV ONE (21:11)
--- NOTE | 2019-02-21 21:56 | CT ---
CT abdomen and pelvis with contrast Indication: Right lower quadrant pain and nausea Comparison: 04/14/2018 Findings: Limited images through the lower chest show no acute abnormality. Review of bone windows shows no osseous lesion. Mild spine and pelvis DJD noted Abdomen: The liver, gallbladder, spleen, adrenal glands, pancreas, stomach and small bowel are normal. Oral contrast enters the cecum without obstruction. The appendix is markedly dilated and fluid-filled, with indistinct enhancement of the wall and marked surrounding stranding, abutting the right psoas muscle. The appendix measures up 2 1.5 cm on axial image 52. No drainable collection is seen, perforation is likely RD occurred. Kidneys show no hydroureteronephrosis. Aortoiliac plaque noted, with infrarenal abdominal aortic ectasia noted on axial image 38 with a centric soft and calcified plaque measuring 2.4 x 2.4 cm. Iliac plaque noted with a stent seen in the right iliac artery. Pelvis: The urinary bladder and rectum are normal. Uterus and adnexa show no acute abnormality Impression: 1. Severe acute appendicitis with stranding and discontinuous enhancement of the wall. Perforation is presumably occurred. Surgical consultation recommended. No drainable collection seen. 2. Vascular plaque and infrarenal abdominal aortic ectasia, similar to the prior. Reported By:MARC STEWART MD
[2019-02-21] MEDS ORDERED: FLAGYL IV PREMIX 500 MG BAG 500 MG/100 ML BAG IV SCH ×2 (22:30→23:00)
--- NOTE | 2019-02-21 22:33 | RAD ---
Chest AP portable Indication: Abdominal pain Comparison 11/27/2018 Findings: There is no pneumothorax. Lungs are mildly hyperinflated. Heart size upper limits of normal no dense consolidation, overt edema or large effusion seen. Impression: Pulmonary hyperinflation and prominent heart size suggesting COPD. Reported By:MARC STEWART MD
[2019-02-21] MEDS ORDERED: NS 1000 ML 1,000 ML ONE (22:35)
[2019-02-21] MEDS: FLAGYL IV PREMIX 500 MG BAG 500 MG/100 ML BAG IV SCH (22:43)
[2019-02-21] MEDS: NS 100 ML IV 100 ML IV SCH (22:44)
[2019-02-21] MEDS ORDERED: NS 100 ML IV + SPIKE MINIBAG* 100 ML IV ONE (22:51)
[2019-02-21] MEDS ORDERED: ZOSYN VIAL 3.375 GRAMS IV ONE (22:52)
[2019-02-21] MEDS: ZOSYN VIAL 3.375 GRAMS 3.375 G in NS 100 ML IV + SPIKE MINIBAG* 100 ML IV SCH (23:14)
[2019-02-21] MEDS: DEMEROL INJ IVP PRN (23:45)
[2019-02-21] MEDS: ZOFRAN INJ 4 MG VIAL IVP PRN (23:46)
[2019-02-22] MEDS: NS 100 ML IV 100 ML IV SCH ×2 (01:05→01:06)
[2019-02-22 01:57] VITALS: BMI 20.7
[2019-02-22] MEDS ORDERED: NS 1000 ML 1,000 ML IV SCH (03:00)
[2019-02-22 05:33] LABS: BASOPHILS % (AUTO) 0.1 % (0.2-1.0); HEMATOCRIT 35.4 % (36.0-47.0); HEMOGLOBIN 11.8 g/dL (12.0-16.0); LYMPHOCYTES # (AUTO) 0.7 X10^3/uL (1.3-2.9); LYMPHOCYTES % (AUTO) 5.5 % (21.0-51.0); MEAN CORPUSCULAR HEMOGLOBIN 30.8 pg (27.0-34.0); MEAN CORPUSCULAR HGB CONC 33.4 g/dL (33.0-35.0); MEAN CORPUSCULAR VOLUME 92.1 fL (80.0-100.0); MEAN PLATELET VOLUME 9.3 fL (7.4-11.0); MONOCYTES # (AUTO) 1.3 x10^3/uL (0.3-0.8); MONOCYTES % (AUTO) 10.3 % (0.0-13.0); NEUTROPHILS # (AUTO) 10.2 x10^3/uL (2.2-4.8); NEUTROPHILS % (AUTO) 84.1 % (42.0-75.0); PLATELET COUNT 160 X10^3/uL (150.0-450.0); RED BLOOD COUNT 3.84 X10^6/uL (3.5-5.4); WHITE BLOOD COUNT 12.2 X10^3/uL (3.6-10.0)
[2019-02-22 05:49] LABS: ALANINE AMINOTRANSFERASE 11 Units/L (12-78); ALBUMIN 3.1 g/dL (3.4-5.0); ALKALINE PHOSPHATASE 101 Units/L (46-116); ASPARTATE AMINO TRANSFERASE 14 Units/L (15-37); BLOOD UREA NITROGEN 11 mg/dL (7-18); CALCIUM 8.3 mg/dL (8.5-10.1); CARBON DIOXIDE 21.1 mmol/L (21-32); CHLORIDE 102 mmol/L (98-107); CREATININE 1.12 mg/dL (0.55-1.02); SODIUM 138 mmol/L (136-145); TOTAL PROTEIN 7.1 g/dL (6.4-8.2); eGFR NON BLACK RACES 52 (>60)
[2019-02-22] MEDS: FLAGYL IV PREMIX 500 MG BAG 500 MG/100 ML BAG IV SCH ×3 (05:51→21:51)
[2019-02-22] MEDS: ZOSYN VIAL 3.375 GRAMS 3.375 G in NS 100 ML IV + SPIKE MINIBAG* 100 ML IV SCH ×3 (05:52→22:50)
[2019-02-22] MEDS: DEMEROL INJ IVP PRN ×3 (05:56→19:42)
[2019-02-22] MEDS ORDERED: KLOR-CON PO PRN (05:58)
[2019-02-22] MEDS ORDERED: POTASSIUM CHL 60 MEQ/NS 0.45% 500 ML IV PRN (05:58)
[2019-02-22] MEDS ORDERED: K-DUR TAB 20 MEQ PO PRN (05:58)
[2019-02-22] MEDS ORDERED: POTASSIUM CHLORIDE LIQ 20 MEQ UDC PO PRN (05:58)
[2019-02-22] MEDS ORDERED: MICRO K EXTEN CAP 10 MEQ PO PRN (05:58)
[2019-02-22] MEDS ORDERED: POTASSIUM CHL 40 MEQ/NS 0.45% 500 ML IV PRN (05:58)
[2019-02-22] MEDS ORDERED: K-RIDER 10 MEQ/NS 100 ML 10 MEQ/100 ML BAG IV ONE (06:03)
[2019-02-22] MEDS: K-RIDER 10 MEQ/NS 100 ML 10 MEQ/100 ML BAG IV PRN ×2 (06:12→08:38)
[2019-02-22 08:07] LABS: CKMB % 1.4 % (<4); CREATINE KINASE 72 Units/L (26-192); CREATINE KINASE MB < 1.0 ng/mL (0-4.0); TROPONIN I < 0.02 ng/mL (0-1.5)
--- NOTE | 2019-02-22 08:13 | DR.H&P ---
H&P History & Physical for Day of: H&P Date: 02/22/19 Chief Complaint Chief Complaint: abdominal pain, nausea, vomiting Allergies Allergies Allergy/AdvReac Type Severity Reaction Status Date / Time ketorolac [From Toradol] Allergy Verified 02/21/19 23:46 tramadol Allergy Verified 02/21/19 23:46 History of Present Illness History of Present Illness: Pt is a 64 yo AAF pmhx CHF, COPD, HTN, PVD, HLD, presenting after having worsening abdominal pain since 02/18/19. She initially thought it was just viral gastroenteritis but sx did not improve. She reports sharp, persistent pain in right side of abdomen. Associated sx of nausea, vomiting. CTAP(02/21/19):Impression:1. Severe acute appendicitis with stranding and discontinuous enhancement of the wall. Perforation has presumably occurred. Surgical consultation recommended. No drainable collection seen. 2. Vascular plaque and infrarenal abdominal aortic ectasia, similar to the prior. CXR(02/21/19):Impression: Pulmonary hyperinflation and prominent heart size suggesting COPD. Past Medical History Past Medical History: CHF and Hypertension Additional Medical History: PVD-stents placed in Right leg in [address] Molina[facility]. Taking Plavix. Past Surgical History Surgical History: Other Additional Surgical History: Possible pericardial effusion requiring pericardiocentesis-ERIN Rodriguez Family History Family Medical History: Diabetes Mellitus Social History Does patient currently use any type of tobacco product: No Have you used tobacco products in the last 12 months: No Type of Tobacco Use: None Does any household member use tobacco: No Alcohol Use: None Drug Use: None Medications Home Medications: ketorolac [From Toradol] Allergy (Verified 02/21/19 23:46) tramadol Allergy (Verified 02/21/19 23:46) CONTINUE taking the following medications amlodipine 5 mg PO DAILY 02/21/19 [History] carvedilol 25 mg PO BID 02/21/19 [History] cilostazol 50 mg PO BID 02/21/19 [History] clopidogrel 75 mg PO DAILY 02/21/19 [History] lovastatin 40 mg PO DAILY 02/21/19 [History] montelukast 10 mg PO DAILY 02/21/19 [History] Labs Result Diagrams: 02/22/19 04:55 02/22/19 04:55 Labs: Laboratory WBC 12.2 X10^3/uL (3.6-10.0) H 02/22/19 04:55 RBC 3.84 X10^6/uL (3.5-5.4) 02/22/19 04:55 Hgb 11.8 g/dL (12.0-16.0) L 02/22/19 04:55 Hct 35.4 % (36.0-47.0) L 02/22/19 04:55 MCV 92.1 fL (80.0-100.0) 02/22/19 04:55 MCH 30.8 pg (27.0-34.0) 02/22/19 04:55 MCHC 33.4 g/dL (33.0-35.0) 02/22/19 04:55 RDW 13.0 % (11.6-16.5) 02/22/19 04:55 Plt Count 160 X10^3/uL (150.0-450.0) 02/22/19 04:55 MPV 9.3 fL (7.4-11.0) 02/22/19 04:55 Neut % (Auto) 84.1 % (42.0-75.0) H 02/22/19 04:55 Lymph % (Auto) 5.5 % (21.0-51.0) L 02/22/19 04:55 [place] % (Auto) 10.3 % (0.0-13.0) 02/22/19 04:55 Eos % (Auto) 0.0 % (0.9-2.9) L 02/22/19 04:55 Baso % (Auto) 0.1 % (0.2-1.0) L 02/22/19 04:55 Neut # (Auto) 10.2 x10^3/uL (2.2-4.8) H 02/22/19 04:55 Lymph # (Auto) 0.7 X10^3/uL (1.3-2.9) L 02/22/19 04:55 [place] # (Auto) 1.3 x10^3/uL (0.3-0.8) H 02/22/19 04:55 Eos # (Auto) 0.0 x10^3/uL (0.0-0.2) 02/22/19 04:55 Baso # (Auto) 0.0 X10^3/uL (0.0-0.1) 02/22/19 04:55 Absolute Nucleated RBC 0.0 /100WBC 02/22/19 04:55 PT 15.3 SECONDS (11.8-14.3) 02/22/19 04:55 INR Target Range - 02/22/19 04:55 INR 1.26 (0.8-1.3) 02/22/19 04:55 Sodium 138 mmol/L (136-145) 02/22/19 04:55 Corrected Sodium TNP 02/22/19 04:55 Potassium 2.9 mmol/L (3.5-5.1) L* 02/22/19 04:55 Chloride 102 mmol/L (98-107) 02/22/19 04:55 Carbon Dioxide 21.1 mmol/L (21-32) 02/22/19 04:55 BUN 11 mg/dL (7-18) 02/22/19 04:55 Creatinine 1.12 mg/dL (0.55-1.02) H 02/22/19 04:55 Est GFR (MDRD) Af Amer > 60 (>60) 02/22/19 04:55 Est GFR (MDRD) Non-Af 52 (>60) L 02/22/19 04:55 Glucose 110 mg/dL (65-99) H 02/22/19 04:55 Calcium 8.3 mg/dL (8.5-10.1) L 02/22/19 04:55 Corrected Calcium 9.0 mg/dL (8.5-10.1) 02/22/19 04:55 Magnesium 1.4 mg/dL (1.7-2.9) L 02/22/19 04:55 Total Bilirubin 0.90 mg/dL (0.2-1.0) 02/22/19 04:55 AST 14 Units/L (15-37) L 02/22/19 04:55 ALT 11 Units/L (12-78) L 02/22/19 04:55 Alkaline Phosphatase 101 Units/L (46-116) 02/22/19 04:55 Total Protein 7.1 g/dL (6.4-8.2) 02/22/19 04:55 Albumin 3.1 g/dL (3.4-5.0) L 02/22/19 04:55 Globulin 4.0 g/dL (2.5-4.5) 02/22/19 04:55 Albumin/Globulin Ratio 0.8 Ratio (1.1-2.1) L 02/22/19 04:55 Lipase 92 Units/L (73-393) 02/21/19 19:18 Review of Systems Constitutional: denies Fever and Chills Eyes: No Symptoms Reported ENT: No Symptoms Reported Respiratory: No Symptoms Reported Cardiovascular: No Symptoms Reported Gastrointestinal: Nausea, Vomiting and Abdominal Pain; denies Diarrhea and Constipation Genitourinary: No Symptoms Reported Musculoskeletal: No Symptoms Reported Skin: No Symptoms Reported Neurological: No Symptoms Reported Physical Exam Vital Signs: Temperature 101.9 F Pulse Rate [Left Radial] 109 Pulse Rate 116 Respiratory Rate 20 Blood Pressure [Right Arm] 112/72 Blood Pressure 135/72 O2 Sat by Pulse Oximetry 98 Oriented: Normal Eyes: Normal Ear: Normal Nose: Normal Respiratory: Clear Throughout Cardiovascular: Normal : Normal Auscultation: Bowel Sounds: Decreased Tenderness: RUQ, RLQ, Moderate, Severe and Guarding Skin: Normal Musculoskeletal: Normal Psychiatric: Normal Mood Description: Calm Speech Pattern: Clear Assessment/Plan (1) Acute appendicitis: Qualifiers: Acute appendicitis type: with localized peritonitis Appendicitis abscess presence: unspecified whether abscess present Appendicitis gangrene presence: without gangrene Appendicitis perforation presence: with perforation Qualified Code(s): K35.32 - Acute appendicitis with perforation and localized peritonitis, without abscess Status: Acute Plan: Surgery consulted, will be taking to OR this morning. Pt is medically stable for procedure. (2) PVD (peripheral vascular disease): Status: Acute Plan: Last Plavix dose 02/21/19. Pt will be monitored in ICU post OR. (3) Hypertension: Qualifiers: Hypertension type: essential hypertension Qualified Code(s): I10 - E ssential (primary) hypertension Status: Acute Plan: Will continue home medications based on clinical course post OR. (4) Mixed hyperlipidemia: Status: Acute (5) COPD (chronic obstructive pulmonary disease): Qualifiers: COPD type: unspecified COPD Qualified Code(s): J44.9 - Chronic obstructive pulmonary disease, unspecified Status: Acute (6) Hypokalemia: Status: Acute Plan: Supplement per protocol.
[2019-02-22] MEDS ORDERED: FENTANYL INJ 250 mcg ONE (09:27)
[2019-02-22] MEDS ORDERED: NS IRRIGATION 3000 ML ONE (09:31)
[2019-02-22] MEDS ORDERED: LR 1000 ML IV 1,000 ML IV ONE (09:49)
[2019-02-22] MEDS ORDERED: BACTROBAN TOPICAL OINT ONE (10:01)
[2019-02-22] MEDS ORDERED: ZOFRAN INJ 4 MG VIAL IVP PRN (11:32)
[2019-02-22] MEDS ORDERED: REGLAN INJ 10 MG VIAL IVP PRN (11:32)
[2019-02-22] MEDS ORDERED: BENADRYL INJ 50 MG VIAL IVP PRN (11:32)
[2019-02-22] MEDS ORDERED: DILAUDID INJ IVP PRN (11:32)
[2019-02-22] MEDS ORDERED: PHENERGAN INJ 25 MG IM PRN (11:32)
--- NOTE | 2019-02-22 11:39 | OR.IMMED ---
Immediate Post-Op Note - Immediate Post-Op Note Pre-Op Diagnosis: perforsted appendicitis. Post-Op Diagnosis: acute gangrenous appendicitis with perforation and abscess RLQ. abdominal adhesions . Procedure: diagnostic laparoscopy , lysis of adhesions. lap appendectomy and drainage . Surgeon/Notcher: Marvin Specimens Removed: fragmentd of gangrenous appendix . Estimated Blood Loss: 30 cc Drains: Vijay Garrido Condition: Stable (on IV ATB . IVF and PO care.)
[2019-02-22] MEDS ORDERED: D5 1/2 NS 1000 ML 1,000 ML IV ONE (12:13)
[2019-02-22] MEDS: D5 1/2 NS 1000 ML 1,000 ML IV SCH ×2 (12:21→21:42)
[2019-02-22] MEDS: DILAUDID INJ IVP PRN (13:40)
[2019-02-22] MEDS ORDERED: NEO-SYNEPHRINE INJ ONE (13:40)
[2019-02-22] MEDS ORDERED: DIPRIVAN VIAL ONE (13:40)
[2019-02-22] MEDS ORDERED: ZOFRAN INJ 4 MG VIAL ONE (13:40)
[2019-02-22] MEDS ORDERED: LTA KIT LIDOCAINE 4% ONE (13:40)
[2019-02-22] MEDS ORDERED: NORCURON INJ 10 MG VIAL ONE (13:40)
[2019-02-22] MEDS ORDERED: ROBINUL ONE (13:40)
[2019-02-22] MEDS ORDERED: NEOSTIGMINE INJ ONE (13:40)
[2019-02-22] MEDS ORDERED: SUPRANE ONE (13:40)
[2019-02-22] MEDS ORDERED: XYLOCAINE 2 % (PLAIN) ONE (13:40)
[2019-02-22] MEDS ORDERED: QUELICIN (OR ANECTINE) ONE (13:40)
[2019-02-22] MEDS ORDERED: VERSED ONE (13:40)
[2019-02-22 18:56] LABS: BILIRUBIN,URINE NEGATIVE (NEGATIVE); BLOOD/HEMOGLOBIN,URINE 3+ (NEGATIVE); GLUCOSE, URINE NEGATIVE (NEGATIVE); KETONES,URINE 1+ (NEGATIVE); LEUKOCYTE ESTERASE ,URINE 2+ (NEGATIVE); NITRITES,URINE NEGATIVE (NEGATIVE); PROTEIN,URINE 2+ (NEGATIVE); UROBILINOGEN,URINE 2+ (NORMAL)
[2019-02-22 18:57] LABS: APPEARANCE,URINE CLEAR (CLEAR); COLOR,URINE AMBER (YELLOW)
[2019-02-22 19:14] LABS: BACTERIA,URINE NEGATIVE /HPF (NEGATIVE); SQUAMOUS EPITHELIAL CELL,UR RARE /HPF (NEGATIVE)
[2019-02-22] MEDS: MAGNESIUM SULFATE 1 GRAM/100 mL PREMIX 1 GM/100 ML BAG IV PRN ×2 (21:44→23:00)
[2019-02-23] MEDS: MAGNESIUM SULFATE 1 GRAM/100 mL PREMIX 1 GM/100 ML BAG IV PRN ×2 (00:15→01:15)
[2019-02-23] MEDS: DEMEROL INJ IVP PRN (02:25)
[2019-02-23] MEDS: FLAGYL IV PREMIX 500 MG BAG 500 MG/100 ML BAG IV SCH ×3 (05:15→21:00)
[2019-02-23] MEDS: ZOSYN VIAL 3.375 GRAMS 3.375 G in NS 100 ML IV + SPIKE MINIBAG* 100 ML IV SCH ×3 (06:05→22:01)
[2019-02-23 06:53] LABS: BASOPHILS % (AUTO) 0.1 % (0.2-1.0); EOSINOPHILS % (AUTO) 0.1 % (0.9-2.9); HEMATOCRIT 32.4 % (36.0-47.0); LYMPHOCYTES # (AUTO) 0.5 X10^3/uL (1.3-2.9); LYMPHOCYTES % (AUTO) 6.2 % (21.0-51.0); MEAN CORPUSCULAR HEMOGLOBIN 31.2 pg (27.0-34.0); MEAN CORPUSCULAR HGB CONC 34.1 g/dL (33.0-35.0); MEAN CORPUSCULAR VOLUME 91.6 fL (80.0-100.0); MEAN PLATELET VOLUME 9.5 fL (7.4-11.0); MONOCYTES # (AUTO) 0.4 x10^3/uL (0.3-0.8); MONOCYTES % (AUTO) 5.4 % (0.0-13.0); NEUTROPHILS # (AUTO) 6.9 x10^3/uL (2.2-4.8); NEUTROPHILS % (AUTO) 88.2 % (42.0-75.0); PLATELET COUNT 123 X10^3/uL (150.0-450.0); RED BLOOD COUNT 3.53 X10^6/uL (3.5-5.4); RED CELL DISTRIBUTION WIDTH 13.1 % (11.6-16.5); WHITE BLOOD COUNT 7.9 X10^3/uL (3.6-10.0)
[2019-02-23 07:07] LABS: ALANINE AMINOTRANSFERASE 11 Units/L (12-78); ALBUMIN 2.5 g/dL (3.4-5.0); ALKALINE PHOSPHATASE 91 Units/L (46-116); ASPARTATE AMINO TRANSFERASE 18 Units/L (15-37); BLOOD UREA NITROGEN 9 mg/dL (7-18); CALCIUM 8.3 mg/dL (8.5-10.1); CARBON DIOXIDE 21.3 mmol/L (21-32); CHLORIDE 101 mmol/L (98-107); COR CA(FOR HYPOALB) 9.5 mg/dL (8.5-10.1); COR NA(FOR HYPERGLY) 134 mmol/L (136-145); CREATININE 0.96 mg/dL (0.55-1.02); SODIUM 133 mmol/L (136-145); TOTAL PROTEIN 6.4 g/dL (6.4-8.2); eGFR NON BLACK RACES > 60 (>60)
[2019-02-23] MEDS: DILAUDID INJ IVP PRN ×2 (07:25→22:00)
--- NOTE | 2019-02-23 08:28 | PCM.PROG ---
Progress Note Progress Note for Day of Date of Exam: 02/23/19 Subjective Subjective: Pt is a 64 yo AAF pmhx CHF, COPD, HTN, PVD, HLD, presenting after having worsening abdominal pain since 02/18/19. She initially thought it was just viral gastroenteritis but sx did not improve. She reports sharp, persistent pain in right side of abdomen. Associated sx of nausea, vomiting. CTAP(02/21/19):Impression:1. Severe acute appendicitis with stranding and discontinuous enhancement of the wall. Perforation has presumably occurred. Surgical consultation recommended. No drainable collection seen. 2. Vascular plaque and infrarenal abdominal aortic ectasia, similar to the prior. CXR(02/21/19):Impression: Pulmonary hyperinflation and prominent heart size suggesting COPD. -Pt is s/p appendectomy POD#1. YULI drain output noted. Pt is tired, per nursing just received some pain medication. She also had few seconds of non-sustained V- tach overnight, she was asymptomatic and did not complain of any chest pain or shortness of breath. Troponin negative, Ekg no changes when compared to prior. Continue to monitor. Past Medical Family Social History Allergies: Allergies ketorolac [From Toradol] Allergy (Verified 02/21/19 23:46) tramadol Allergy (Verified 02/21/19 23:46) Vital Signs and I&O's Vital Signs: Temperature 100.1 F Pulse Rate [Left Radial] 95 Pulse Rate 84 Respiratory Rate 29 Blood Pressure [Left Arm] 110/65 Blood Pressure [Right Arm] 110/67 Blood Pressure 109/65 O2 Sat by Pulse Oximetry 95 Intake and Output: Intake & Output 02/20/19 02/21/19 02/22/19 02/23/19 23:59 23:59 23:59 23:59 Intake Total 420 / 420 3686 / 3686 1040 / 1040 Output Total 835 / 835 260 / 260 Balance 420 / 420 2851 / 2851 780 / 780 Physical Exam Oriented: Normal Eyes: Normal Ear: Normal Nose: Normal Cardiovascular: Normal : Normal Auscultation: Bowel Sounds: Decreased Tenderness: RUQ, RLQ, Moderate, Severe and Guarding Skin: Normal Musculoskeletal: Normal Psychiatric: Normal Mood Description: Calm Speech Pattern: Clear and Appropriate Laboratory and Diagnostics Result Diagrams: 02/23/19 04:18 02/23/19 04:18 Labs: Laboratory WBC 7.9 X10^3/uL (3.6-10.0) 02/23/19 04:18 RBC 3.53 X10^6/uL (3.5-5.4) 02/23/19 04:18 Hgb 11.0 g/dL (12.0-16.0) L 02/23/19 04:18 Hct 32.4 % (36.0-47.0) L 02/23/19 04:18 MCV 91.6 fL (80.0-100.0) 02/23/19 04:18 MCH 31.2 pg (27.0-34.0) 02/23/19 04:18 MCHC 34.1 g/dL (33.0-35.0) 02/23/19 04:18 RDW 13.1 % (11.6-16.5) 02/23/19 04:18 Plt Count 123 X10^3/uL (150.0-450.0) L 02/23/19 04:18 MPV 9.5 fL (7.4-11.0) 02/23/19 04:18 Neut % (Auto) 88.2 % (42.0-75.0) H 02/23/19 04:18 Lymph % (Auto) 6.2 % (21.0-51.0) L 02/23/19 04:18 [place] % (Auto) 5.4 % (0.0-13.0) 02/23/19 04:18 Eos % (Auto) 0.1 % (0.9-2.9) L 02/23/19 04:18 Baso % (Auto) 0.1 % (0.2-1.0) L 02/23/19 04:18 Neut # (Auto) 6.9 x10^3/uL (2.2-4.8) H 02/23/19 04:18 Lymph # (Auto) 0.5 X10^3/uL (1.3-2.9) L 02/23/19 04:18 [place] # (Auto) 0.4 x10^3/uL (0.3-0.8) 02/23/19 04:18 Eos # (Auto) 0.0 x10^3/uL (0.0-0.2) 02/23/19 04:18 Baso # (Auto) 0.0 X10^3/uL (0.0-0.1) 02/23/19 04:18 Absolute Nucleated RBC 0.1 /100WBC 02/23/19 04:18 PT 15.3 SECONDS (11.8-14.3) 02/22/19 04:55 INR Target Range - 02/22/19 04:55 INR 1.26 (0.8-1.3) 02/22/19 04:55 Sodium 133 mmol/L (136-145) L 02/23/19 04:18 Corrected Sodium 134 mmol/L (136-145) L 02/23/19 04:18 Potassium 3.6 mmol/L (3.5-5.1) 02/23/19 04:18 Chloride 101 mmol/L (98-107) 02/23/19 04:18 Carbon Dioxide 21.3 mmol/L (21-32) 02/23/19 04:18 BUN 9 mg/dL (7-18) 02/23/19 04:18 Creatinine 0.96 mg/dL (0.55-1.02) 02/23/19 04:18 Est GFR (MDRD) Af Amer > 60 (>60) 02/23/19 04:18 Est GFR (MDRD) Non-Af > 60 (>60) 02/23/19 04:18 Glucose 131 mg/dL (65-99) H 02/23/19 04:18 Calcium 8.3 mg/dL (8.5-10.1) L 02/23/19 04:18 Corrected Calcium 9.5 mg/dL (8.5-10.1) 02/23/19 04:18 Magnesium 3.1 mg/dL (1.7-2.9) H 02/23/19 04:18 Total Bilirubin 1.00 mg/dL (0.2-1.0) 02/23/19 04:18 AST 18 Units/L (15-37) 02/23/19 04:18 ALT 11 Units/L (12-78) L 02/23/19 04:18 Alkaline Phosphatase 91 Units/L (46-116) 02/23/19 04:18 Creatine Kinase 72 Units/L (26-192) 02/22/19 04:55 CK-MB (CK-2) < 1.0 ng/mL (0-4.0) 02/22/19 04:55 CK/CKMB % Calc 1.4 % (<4) 02/22/19 04:55 Troponin I < 0.02 ng/mL (0-1.5) 02/22/19 04:55 Total Protein 6.4 g/dL (6.4-8.2) 02/23/19 04:18 Albumin 2.5 g/dL (3.4-5.0) L 02/23/19 04:18 Globulin 3.9 g/dL (2.5-4.5) 02/23/19 04:18 Albumin/Globulin Ratio 0.6 Ratio (1.1-2.1) L 02/23/19 04:18 Lipase 92 Units/L (73-393) 02/21/19 19:18 Specimen Type Catherized urine 02/22/19 18:35 Urine Color [place] (YELLOW) 02/22/19 18:35 Urine Appearance Clear (CLEAR) 02/22/19 18:35 Urine pH 5.0 (5.0 - 8.0) 02/22/19 18:35 Ur Specific [place] 1.025 (1.000-1.030) 02/22/19 18:35 Urine Protein 2+ (NEGATIVE) 02/22/19 18:35 Urine Glucose (UA) Negative (NEGATIVE) 02/22/19 18:35 Urine Ketones 1+ (NEGATIVE) 02/22/19 18:35 Urine Occult Blood 3+ (NEGATIVE) 02/22/19 18:35 Urine Nitrite Negative (NEGATIVE) 02/22/19 18:35 Urine Bilirubin Negative (NEGATIVE) 02/22/19 18:35 Urine Urobilinogen 2+ (NORMAL) 02/22/19 18:35 Ur Leukocyte Esterase 2+ (NEGATIVE) 02/22/19 18:35 Urine RBC 3-5 /HPF (0-3) A 02/22/19 18:35 Urine WBC 0-2 /HPF (0-5) 02/22/19 18:35 Ur Squamous Epith Cells Rare /HPF (NEGATIVE) 02/22/19 18:35 Urine Bacteria Negative /HPF (NEGATIVE) 02/22/19 18:35 Ur Culture Indicated? No/not indicated 02/22/19 18:35 Tissue Pathology To follow 02/22/19 10:57 Plan (1) Acute appendicitis: Status: Acute Qualifiers: Acute appendicitis type: with localized peritonitis Appendicitis abscess presence: unspecified whether abscess present Appendicitis gangrene presence: without gangrene Appendicitis perforation presence: with perforation Qualified Code(s): K35.32 - Acute appendicitis with perforation and localized peritonitis, without abscess Plan: S/p appendectomy POD#1. Pain and nausea management. Hgb stable. Consider restarting Plavix. F/u surgery recs. (2) PVD (peripheral vascular disease): Status: Acute Plan: Last Plavix dose 02/21/19. Pt will be monitored in ICU post OR. (3) Hypertension: Status: Acute Qualifiers: Hypertension type: essential hypertension Qualified Code(s): I10 - Essential (primary) hypertension Plan: Will continue home medications based on clinical course post OR. (4) Mixed hyperlipidemia: Status: Acute (5) COPD (chronic obstructive pulmonary disease): Status: Acute Qualifiers: COPD type: unspecified COPD Qualified Code(s): J44.9 - Chronic obstructive pulmonary disease, unspecified (6) Hypokalemia: Status: Acute Plan: Supplement per protocol.
[2019-02-23] MEDS ORDERED: NORCO 5/325 MG TAB PO PRN (08:43)
[2019-02-23] MEDS: LOVENOX INJ 40 MG SYR SC SCH (09:19)
[2019-02-23] MEDS: K-RIDER 10 MEQ/NS 100 ML 10 MEQ/100 ML BAG IV PRN ×2 (09:19→11:49)
[2019-02-23] MEDS: D5 1/2 NS 1000 ML 1,000 ML IV SCH ×4 (09:20→22:00)
--- NOTE | 2019-02-23 12:54 | DR.PROGNOT ---
Hospital Progress Notes - Progress Note for Day of: Progress Note Date: 02/23/19 - Chief Complaint Chief Complaint: post op lap appendectomy day 1 . doing fairly well . less abdominal pain , no nausea or vomiting . had episods od tachycardia last night . WBC is normal now with 88% segs. having low grade fever . - Past Medical Family Social History Past Med/Fam/Surg Hx: No changes since H&P Allergies: Allergies ketorolac [From Toradol] Allergy (Verified 02/21/19 23:46) tramadol Allergy (Verified 02/21/19 23:46) - Review Of Systems ROS: No change since H&P - Vital Signs Vital Signs: Temperature 100.1 F Pulse Rate [Left Radial] 95 Pulse Rate 84 Respiratory Rate 21 Blood Pressure [Left Arm] 110/65 Blood Pressure [Right Arm] 110/67 Blood Pressure 109/65 O2 Sat by Pulse Oximetry 95 - Physical Exam Oriented: Normal Eyes: Normal Ear: Normal Nose: Normal Cardiovascular: Tachycardia : Normal GI:Auscultation: Decreased GI:Palpation: Normal GI: Tenderness: Diffuse (soft , flat abdomen , BS+), Moderate, Guarding Skin: Normal Musculoskeletal: Normal Psychiatric: Normal Mood Description: Calm Speech Pattern: Clear, Appropriate - Laboratory and Diagnostics Result Diagrams: 02/23/19 04:18 02/23/19 04:18 Labs: Laboratory WBC 7.9 X10^3/uL (3.6-10.0) 02/23/19 04:18 RBC 3.53 X10^6/uL (3.5-5.4) 02/23/19 04:18 Hgb 11.0 g/dL (12.0-16.0) L 02/23/19 04:18 Hct 32.4 % (36.0-47.0) L 02/23/19 04:18 MCV 91.6 fL (80.0-100.0) 02/23/19 04:18 MCH 31.2 pg (27.0-34.0) 02/23/19 04:18 MCHC 34.1 g/dL (33.0-35.0) 02/23/19 04:18 RDW 13.1 % (11.6-16.5) 02/23/19 04:18 Plt Count 123 X10^3/uL (150.0-450.0) L 02/23/19 04:18 MPV 9.5 fL (7.4-11.0) 02/23/19 04:18 Neut % (Auto) 88.2 % (42.0-75.0) H 02/23/19 04:18 Lymph % (Auto) 6.2 % (21.0-51.0) L 02/23/19 04:18 [place] % (Auto) 5.4 % (0.0-13.0) 02/23/19 04:18 Eos % (Auto) 0.1 % (0.9-2.9) L 02/23/19 04:18 Baso % (Auto) 0.1 % (0.2-1.0) L 02/23/19 04:18 Neut # (Auto) 6.9 x10^3/uL (2.2-4.8) H 02/23/19 04:18 Lymph # (Auto) 0.5 X10^3/uL (1.3-2.9) L 02/23/19 04:18 [place] # (Auto) 0.4 x10^3/uL (0.3-0.8) 02/23/19 04:18 Eos # (Auto) 0.0 x10^3/uL (0.0-0.2) 02/23/19 04:18 Baso # (Auto) 0.0 X10^3/uL (0.0-0.1) 02/23/19 04:18 Absolute Nucleated RBC 0.1 /100WBC 02/23/19 04:18 PT 15.3 SECONDS (11.8-14.3) 02/22/19 04:55 INR Target Range - 02/22/19 04:55 INR 1.26 (0.8-1.3) 02/22/19 04:55 Sodium 133 mmol/L (136-145) L 02/23/19 04:18 Corrected Sodium 134 mmol/L (136-145) L 02/23/19 04:18 Potassium 3.6 mmol/L (3.5-5.1) 02/23/19 04:18 Chloride 101 mmol/L (98-107) 02/23/19 04:18 Carbon Dioxide 21.3 mmol/L (21-32) 02/23/19 04:18 BUN 9 mg/dL (7-18) 02/23/19 04:18 Creatinine 0.96 mg/dL (0.55-1.02) 02/23/19 04:18 Est GFR (MDRD) Af Amer > 60 (>60) 02/23/19 04:18 Est GFR (MDRD) Non-Af > 60 (>60) 02/23/19 04:18 Glucose 131 mg/dL (65-99) H 02/23/19 04:18 Calcium 8.3 mg/dL (8.5-10.1) L 02/23/19 04:18 Corrected Calcium 9.5 mg/dL (8.5-10.1) 02/23/19 04:18 Magnesium 3.1 mg/dL (1.7-2.9) H 02/23/19 04:18 Total Bilirubin 1.00 mg/dL (0.2-1.0) 02/23/19 04:18 AST 18 Units/L (15-37) 02/23/19 04:18 ALT 11 Units/L (12-78) L 02/23/19 04:18 Alkaline Phosphatase 91 Units/L (46-116) 02/23/19 04:18 Creatine Kinase 72 Units/L (26-192) 02/22/19 04:55 CK-MB (CK-2) < 1.0 ng/mL (0-4.0) 02/22/19 04:55 CK/CKMB % Calc 1.4 % (<4) 02/22/19 04:55 Troponin I < 0.02 ng/mL (0-1.5) 02/23/19 08:50 Total Protein 6.4 g/dL (6.4-8.2) 02/23/19 04:18 Albumin 2.5 g/dL (3.4-5.0) L 02/23/19 04:18 Globulin 3.9 g/dL (2.5-4.5) 02/23/19 04:18 Albumin/Globulin Ratio 0.6 Ratio (1.1-2.1) L 02/23/19 04:18 Lipase 92 Units/L (73-393) 02/21/19 19:18 Specimen Type Catherized urine 02/22/19 18:35 Urine Color Luz Maria (YELLOW) 02/22/19 18:35 Urine Appearance Clear (CLEAR) 02/22/19 18:35 Urine pH 5.0 (5.0 - 8.0) 02/22/19 18:35 Ur Specific [place] 1.025 (1.000-1.030) 02/22/19 18:35 Urine Protein 2+ (NEGATIVE) 02/22/19 18:35 Urine Glucose (UA) Negative (NEGATIVE) 02/22/19 18:35 Urine Ketones 1+ (NEGATIVE) 02/22/19 18:35 Urine Occult Blood 3+ (NEGATIVE) 02/22/19 18:35 Urine Nitrite Negative (NEGATIVE) 02/22/19 18:35 Urine Bilirubin Negative (NEGATIVE) 02/22/19 18:35 Urine Urobilinogen 2+ (NORMAL) 02/22/19 18:35 Ur Leukocyte Esterase 2+ (NEGATIVE) 02/22/19 18:35 Urine RBC 3-5 /HPF (0-3) A 02/22/19 18:35 Urine WBC 0-2 /HPF (0-5) 02/22/19 18:35 Ur Squamous Epith Cells Rare /HPF (NEGATIVE) 02/22/19 18:35 Urine Bacteria Negative /HPF (NEGATIVE) 02/22/19 18:35 Ur Culture Indicated? No/not indicated 02/22/19 18:35 Tissue Pathology To follow 02/22/19 10:57 - Assessment and Plan 1: post op appendectomy , lysis of adhesion for perforated appendicitis . CAD ,HTN , COPD ,. same post operative care . start full liquid diet . OOB . IV ATB , DVT prophylaxis . to keep YULI in place . - Problem Patient Problems: Patient Problems Hypokalemia (Acute) E87.6 COPD (chronic obstructive pulmonary disease) (Acute) J44.9 Mixed hyperlipidemia (Acute) E78.2 Acute appendicitis (Acute) K35.80
[2019-02-23] MEDS: ZOFRAN INJ 4 MG VIAL IVP PRN (18:58)
[2019-02-23] MEDS: REGLAN INJ 10 MG VIAL IVP PRN (21:52)
[2019-02-24] MEDS: D5 1/2 NS 1000 ML 1,000 ML IV SCH ×4 (02:20→21:00)
[2019-02-24] MEDS: ZOFRAN INJ 4 MG VIAL IVP PRN ×2 (02:52→14:37)
[2019-02-24] MEDS: REGLAN INJ 10 MG VIAL IVP PRN ×2 (04:53→19:19)
[2019-02-24] MEDS: FLAGYL IV PREMIX 500 MG BAG 500 MG/100 ML BAG IV SCH ×3 (05:00→21:00)
[2019-02-24 05:18] LABS: BASOPHILS % (AUTO) 0.3 % (0.2-1.0); EOSINOPHILS % (AUTO) 0.2 % (0.9-2.9); HEMOGLOBIN 11.6 g/dL (12.0-16.0); LYMPHOCYTES # (AUTO) 0.4 X10^3/uL (1.3-2.9); LYMPHOCYTES % (AUTO) 5.4 % (21.0-51.0); MEAN PLATELET VOLUME 9.7 fL (7.4-11.0); MONOCYTES # (AUTO) 0.6 x10^3/uL (0.3-0.8); NEUTROPHILS # (AUTO) 7.1 x10^3/uL (2.2-4.8); NEUTROPHILS % (AUTO) 87.1 % (42.0-75.0); PLATELET COUNT 135 X10^3/uL (150.0-450.0); RED BLOOD COUNT 3.73 X10^6/uL (3.5-5.4); RED CELL DISTRIBUTION WIDTH 13.5 % (11.6-16.5); WHITE BLOOD COUNT 8.2 X10^3/uL (3.6-10.0)
[2019-02-24 05:29] LABS: ALANINE AMINOTRANSFERASE 9 Units/L (12-78); ALBUMIN 2.2 g/dL (3.4-5.0); ALKALINE PHOSPHATASE 83 Units/L (46-116); ASPARTATE AMINO TRANSFERASE 21 Units/L (15-37); BLOOD UREA NITROGEN 6 mg/dL (7-18); CALCIUM 8.1 mg/dL (8.5-10.1); CHLORIDE 100 mmol/L (98-107); COR CA(FOR HYPOALB) 9.5 mg/dL (8.5-10.1); COR NA(FOR HYPERGLY) 134 mmol/L (136-145); CREATININE 0.94 mg/dL (0.55-1.02); SODIUM 133 mmol/L (136-145); TOTAL PROTEIN 6.3 g/dL (6.4-8.2); eGFR NON BLACK RACES > 60 (>60)
[2019-02-24 05:38] LABS: PLATELET MORPHOLOGY COMMENT NORMAL (NORMAL)
[2019-02-24] MEDS: ZOSYN VIAL 3.375 GRAMS 3.375 G in NS 100 ML IV + SPIKE MINIBAG* 100 ML IV SCH ×3 (06:06→22:25)
[2019-02-24] MEDS: LOVENOX INJ 40 MG SYR SC SCH (08:42)
--- NOTE | 2019-02-24 09:43 | DR.PROGNOT ---
Hospital Progress Notes - Progress Note for Day of: Progress Note Date: 02/24/19 - Chief Complaint Chief Complaint: post op lap appendectomy day 1 . was vomiting last night and this am ..no BM . YULI drainage is serosangineous . CBC, CMP all normal . afebrile . - Past Medical Family Social History Past Med/Fam/Surg Hx: No changes since H&P Allergies: Allergies ketorolac [From Toradol] Allergy (Verified 02/21/19 23:46) tramadol Allergy (Verified 02/21/19 23:46) - Review Of Systems ROS: No change since H&P - Vital Signs Vital Signs: Temperature 97.6 F Pulse Rate [Left Radial] 88 Pulse Rate 84 Respiratory Rate 25 Blood Pressure [Left Arm] 161/86 Blood Pressure [Right Arm] 110/67 Blood Pressure 109/65 O2 Sat by Pulse Oximetry 96 - Physical Exam Oriented: Normal Eyes: Normal Ear: Normal Nose: Normal Cardiovascular: Tachycardia : Normal GI:Auscultation: Decreased GI: Tenderness: Diffuse (moderate distention and tympanic . BS -), Moderate, Guarding Skin: Normal Musculoskeletal: Normal Psychiatric: Normal Mood Description: Calm Speech Pattern: Clear, Appropriate - Laboratory and Diagnostics Result Diagrams: 02/24/19 04:08 02/24/19 04:08 Labs: Laboratory WBC 8.2 X10^3/uL (3.6-10.0) 02/24/19 04:08 RBC 3.73 X10^6/uL (3.5-5.4) 02/24/19 04:08 Hgb 11.6 g/dL (12.0-16.0) L 02/24/19 04:08 Hct 34.0 % (36.0-47.0) L 02/24/19 04:08 MCV 91.0 fL (80.0-100.0) 02/24/19 04:08 MCH 31.0 pg (27.0-34.0) 02/24/19 04:08 MCHC 34.0 g/dL (33.0-35.0) 02/24/19 04:08 RDW 13.5 % (11.6-16.5) 02/24/19 04:08 Plt Count 135 X10^3/uL (150.0-450.0) L 02/24/19 04:08 Plt Count Comment Adequate (ADEQUATE) 02/24/19 04:08 MPV 9.7 fL (7.4-11.0) 02/24/19 04:08 Neut % (Auto) 87.1 % (42.0-75.0) H 02/24/19 04:08 Lymph % (Auto) 5.4 % (21.0-51.0) L 02/24/19 04:08 [place] % (Auto) 7.0 % (0.0-13.0) 02/24/19 04:08 Eos % (Auto) 0.2 % (0.9-2.9) L 02/24/19 04:08 Baso % (Auto) 0.3 % (0.2-1.0) 02/24/19 04:08 Neut # (Auto) 7.1 x10^3/uL (2.2-4.8) H 02/24/19 04:08 Lymph # (Auto) 0.4 X10^3/uL (1.3-2.9) L 02/24/19 04:08 [place] # (Auto) 0.6 x10^3/uL (0.3-0.8) 02/24/19 04:08 Eos # (Auto) 0.0 x10^3/uL (0.0-0.2) 02/24/19 04:08 Baso # (Auto) 0.0 X10^3/uL (0.0-0.1) 02/24/19 04:08 Absolute Nucleated RBC 0.0 /100WBC 02/24/19 04:08 Plt Morphology Comment Normal (NORMAL) 02/24/19 04:08 RBC Morphology Normal (NORMAL) 02/24/19 04:08 PT 15.3 SECONDS (11.8-14.3) 02/22/19 04:55 INR Target Range - 02/22/19 04:55 INR 1.26 (0.8-1.3) 02/22/19 04:55 Sodium 133 mmol/L (136-145) L 02/24/19 04:08 Corrected Sodium 134 mmol/L (136-145) L 02/24/19 04:08 Potassium 4.1 mmol/L (3.5-5.1) 02/24/19 04:08 Chloride 100 mmol/L (98-107) 02/24/19 04:08 Carbon Dioxide 24.0 mmol/L (21-32) 02/24/19 04:08 BUN 6 mg/dL (7-18) L 02/24/19 04:08 Creatinine 0.94 mg/dL (0.55-1.02) 02/24/19 04:08 Est GFR (MDRD) Af Amer > 60 (>60) 02/24/19 04:08 Est GFR (MDRD) Non-Af > 60 (>60) 02/24/19 04:08 Glucose 123 mg/dL (65-99) H 02/24/19 04:08 Calcium 8.1 mg/dL (8.5-10.1) L 02/24/19 04:08 Corrected Calcium 9.5 mg/dL (8.5-10.1) 02/24/19 04:08 Magnesium 2.0 mg/dL (1.7-2.9) 02/24/19 04:08 Total Bilirubin 0.80 mg/dL (0.2-1.0) 02/24/19 04:08 AST 21 Units/L (15-37) 02/24/19 04:08 ALT 9 Units/L (12-78) L 02/24/19 04:08 Alkaline Phosphatase 83 Units/L (46-116) 02/24/19 04:08 Creatine Kinase 72 Units/L (26-192) 02/22/19 04:55 CK-MB (CK-2) < 1.0 ng/mL (0-4.0) 02/22/19 04:55 CK/CKMB % Calc 1.4 % (<4) 02/22/19 04:55 Troponin I < 0.02 ng/mL (0-1.5) 02/23/19 08:50 Total Protein 6.3 g/dL (6.4-8.2) L 02/24/19 04:08 Albumin 2.2 g/dL (3.4-5.0) L 02/24/19 04:08 Globulin 4.1 g/dL (2.5-4.5) 02/24/19 04:08 Albumin/Globulin Ratio 0.5 Ratio (1.1-2.1) L 02/24/19 04:08 Lipase 92 Units/L (73-393) 02/21/19 19:18 Specimen Type Catherized urine 02/22/19 18:35 Urine Color Luz Maria (YELLOW) 02/22/19 18:35 Urine Appearance Clear (CLEAR) 02/22/19 18:35 Urine pH 5.0 (5.0 - 8.0) 02/22/19 18:35 Ur Specific [place] 1.025 (1.000-1.030) 02/22/19 18:35 Urine Protein 2+ (NEGATIVE) 02/22/19 18:35 Urine Glucose (UA) Negative (NEGATIVE) 02/22/19 18:35 Urine Ketones 1+ (NEGATIVE) 02/22/19 18:35 Urine Occult Blood 3+ (NEGATIVE) 02/22/19 18:35 Urine Nitrite Negative (NEGATIVE) 02/22/19 18:35 Urine Bilirubin Negative (NEGATIVE) 02/22/19 18:35 Urine Urobilinogen 2+ (NORMAL) 02/22/19 18:35 Ur Leukocyte Esterase 2+ (NEGATIVE) 02/22/19 18:35 Urine RBC 3-5 /HPF (0-3) A 02/22/19 18:35 Urine WBC 0-2 /HPF (0-5) 02/22/19 18:35 Ur Squamous Epith Cells Rare /HPF (NEGATIVE) 02/22/19 18:35 Urine Bacteria Negative /HPF (NEGATIVE) 02/22/19 18:35 Ur Culture Indicated? No/not indicated 02/22/19 18:35 Tissue Pathology To follow 02/22/19 10:57 - Assessment and Plan 1: post op appendectomy , lysis of adhesion for perforated appendicitis . po ileus . to keep NPO . abdominal xray , same IV ATB .. - Problem Patient Problems: Patient Problems Hypokalemia (Acute) E87.6 COPD (chronic obstructive pulmonary disease) (Acute) J44.9 Mixed hyperlipidemia (Acute) E78.2 Acute appendicitis (Acute) K35.80
--- NOTE | 2019-02-24 10:16 | RAD ---
Examination: KUB History: Ileus Comparison reference 04/12/2018, abdomen CT 02/21/2019 Findings: There is gaseous distention of the stomach, sections of small bowel and colon. There is residual contrast material in the bowel from recent diagnostic imaging. There is a surgical catheter or drain in the right lower quadrant which may be related to previous appendiceal surgery. No mass formation or definite ascites is seen. Impression: Interval postsurgical findings. Described intestinal gas pattern most consistent with nonobstructing ileus. There is suspect area of atelectasis in the incompletely visualized left lower lung. Reported By:
[2019-02-24] MEDS: DILAUDID INJ IVP PRN (19:20)
[2019-02-25] MEDS: D5 1/2 NS 1000 ML 1,000 ML IV SCH ×4 (01:30→17:06)
[2019-02-25] MEDS: DILAUDID INJ IVP PRN ×5 (01:37→20:54)
[2019-02-25 05:20] LABS: BASOPHILS % (AUTO) 0.3 % (0.2-1.0); EOSINOPHILS # (AUTO) 0.1 x10^3/uL (0.0-0.2); EOSINOPHILS % (AUTO) 0.8 % (0.9-2.9); HEMATOCRIT 31.9 % (36.0-47.0); HEMOGLOBIN 10.9 g/dL (12.0-16.0); LYMPHOCYTES % (AUTO) 14.7 % (21.0-51.0); MEAN CORPUSCULAR HEMOGLOBIN 30.8 pg (27.0-34.0); MEAN CORPUSCULAR HGB CONC 34.1 g/dL (33.0-35.0); MEAN CORPUSCULAR VOLUME 90.2 fL (80.0-100.0); MEAN PLATELET VOLUME 9.1 fL (7.4-11.0); MONOCYTES # (AUTO) 0.8 x10^3/uL (0.3-0.8); NEUTROPHILS # (AUTO) 5.1 x10^3/uL (2.2-4.8); NEUTROPHILS % (AUTO) 73.2 % (42.0-75.0); PLATELET COUNT 202 X10^3/uL (150.0-450.0); RED BLOOD COUNT 3.54 X10^6/uL (3.5-5.4); RED CELL DISTRIBUTION WIDTH 13.4 % (11.6-16.5)
[2019-02-25 05:35] LABS: ALANINE AMINOTRANSFERASE 9 Units/L (12-78); ALBUMIN 2.2 g/dL (3.4-5.0); ALKALINE PHOSPHATASE 71 Units/L (46-116); ASPARTATE AMINO TRANSFERASE 18 Units/L (15-37); BLOOD UREA NITROGEN 4 mg/dL (7-18); CALCIUM 7.9 mg/dL (8.5-10.1); CARBON DIOXIDE 25.5 mmol/L (21-32); CHLORIDE 103 mmol/L (98-107); COR CA(FOR HYPOALB) 9.3 mg/dL (8.5-10.1); COR NA(FOR HYPERGLY) 139 mmol/L (136-145); SODIUM 138 mmol/L (136-145); eGFR NON BLACK RACES > 60 (>60)
[2019-02-25] MEDS: FLAGYL IV PREMIX 500 MG BAG 500 MG/100 ML BAG IV SCH ×3 (05:38→21:01)
[2019-02-25] MEDS: REGLAN INJ 10 MG VIAL IVP PRN (05:52)
[2019-02-25] MEDS: ZOSYN VIAL 3.375 GRAMS 3.375 G in NS 100 ML IV + SPIKE MINIBAG* 100 ML IV SCH ×3 (06:17→23:26)
[2019-02-25] MEDS: K-RIDER 10 MEQ/NS 100 ML 10 MEQ/100 ML BAG IV PRN ×2 (06:25→08:44)
[2019-02-25] MEDS: LOVENOX INJ 40 MG SYR SC SCH ×2 (08:43→20:38)
--- NOTE | 2019-02-25 09:42 | DR.PROGNOT ---
Hospital Progress Notes - Progress Note for Day of: Progress Note Date: 02/25/19 - Chief Complaint Chief Complaint: post op lap appendectomy day 3 . feeling better today , no vomiting and had normal BM . YULI drainage is serosangineous . CBC, CMP all normal . afebrile . - Past Medical Family Social History Past Med/Fam/Surg Hx: No changes since H&P Allergies: Allergies ketorolac [From Toradol] Allergy (Verified 02/21/19 23:46) tramadol Allergy (Verified 02/21/19 23:46) - Review Of Systems ROS: No change since H&P - Vital Signs Vital Signs: Temperature 98.5 F Pulse Rate [Left Radial] 79 Pulse Rate 84 Respiratory Rate 22 Blood Pressure [Left Arm] 155/83 Blood Pressure [Right Arm] 110/67 Blood Pressure 109/65 O2 Sat by Pulse Oximetry 97 - Physical Exam Oriented: Normal Eyes: Normal Ear: Normal Nose: Normal Cardiovascular: Tachycardia : Normal GI:Auscultation: Decreased GI:Palpation: Normal GI: Tenderness: Diffuse (moderate distention and tympanic . BS -), Moderate, Guarding Skin: Normal Musculoskeletal: Normal Psychiatric: Normal Mood Description: Calm Speech Pattern: Clear, Appropriate - Laboratory and Diagnostics Result Diagrams: 02/25/19 04:10 02/25/19 04:10 Labs: Laboratory WBC 7.0 X10^3/uL (3.6-10.0) 02/25/19 04:10 RBC 3.54 X10^6/uL (3.5-5.4) 02/25/19 04:10 Hgb 10.9 g/dL (12.0-16.0) L 02/25/19 04:10 Hct 31.9 % (36.0-47.0) L 02/25/19 04:10 MCV 90.2 fL (80.0-100.0) 02/25/19 04:10 MCH 30.8 pg (27.0-34.0) 02/25/19 04:10 MCHC 34.1 g/dL (33.0-35.0) 02/25/19 04:10 RDW 13.4 % (11.6-16.5) 02/25/19 04:10 Plt Count 202 X10^3/uL (150.0-450.0) 02/25/19 04:10 Plt Count Comment Adequate (ADEQUATE) 02/24/19 04:08 MPV 9.1 fL (7.4-11.0) 02/25/19 04:10 Neut % (Auto) 73.2 % (42.0-75.0) 02/25/19 04:10 Lymph % (Auto) 14.7 % (21.0-51.0) L 02/25/19 04:10 [place] % (Auto) 11.0 % (0.0-13.0) 02/25/19 04:10 Eos % (Auto) 0.8 % (0.9-2.9) L 02/25/19 04:10 Baso % (Auto) 0.3 % (0.2-1.0) 02/25/19 04:10 Neut # (Auto) 5.1 x10^3/uL (2.2-4.8) H 02/25/19 04:10 Lymph # (Auto) 1.0 X10^3/uL (1.3-2.9) L 02/25/19 04:10 [place] # (Auto) 0.8 x10^3/uL (0.3-0.8) 02/25/19 04:10 Eos # (Auto) 0.1 x10^3/uL (0.0-0.2) 02/25/19 04:10 Baso # (Auto) 0.0 X10^3/uL (0.0-0.1) 02/25/19 04:10 Absolute Nucleated RBC 0.0 /100WBC 02/25/19 04:10 Plt Morphology Comment Normal (NORMAL) 02/24/19 04:08 RBC Morphology Normal (NORMAL) 02/24/19 04:08 PT 15.3 SECONDS (11.8-14.3) 02/22/19 04:55 INR Target Range - 02/22/19 04:55 INR 1.26 (0.8-1.3) 02/22/19 04:55 Sodium 138 mmol/L (136-145) 02/25/19 04:10 Corrected Sodium 139 mmol/L (136-145) 02/25/19 04:10 Potassium 2.9 mmol/L (3.5-5.1) L* 02/25/19 04:10 Chloride 103 mmol/L (98-107) 02/25/19 04:10 Carbon Dioxide 25.5 mmol/L (21-32) 02/25/19 04:10 BUN 4 mg/dL (7-18) L 02/25/19 04:10 Creatinine 0.80 mg/dL (0.55-1.02) 02/25/19 04:10 Est GFR (MDRD) Af Amer > 60 (>60) 02/25/19 04:10 Est GFR (MDRD) Non-Af > 60 (>60) 02/25/19 04:10 Glucose 129 mg/dL (65-99) H 02/25/19 04:10 Calcium 7.9 mg/dL (8.5-10.1) L 02/25/19 04:10 Corrected Calcium 9.3 mg/dL (8.5-10.1) 02/25/19 04:10 Magnesium 1.8 mg/dL (1.7-2.9) 02/25/19 04:10 Total Bilirubin 0.50 mg/dL (0.2-1.0) 02/25/19 04:10 AST 18 Units/L (15-37) 02/25/19 04:10 ALT 9 Units/L (12-78) L 02/25/19 04:10 Alkaline Phosphatase 71 Units/L (46-116) 02/25/19 04:10 Creatine Kinase 72 Units/L (26-192) 02/22/19 04:55 CK-MB (CK-2) < 1.0 ng/mL (0-4.0) 02/22/19 04:55 CK/CKMB % Calc 1.4 % (<4) 02/22/19 04:55 Troponin I < 0.02 ng/mL (0-1.5) 02/23/19 08:50 Total Protein 6.0 g/dL (6.4-8.2) L 02/25/19 04:10 Albumin 2.2 g/dL (3.4-5.0) L 02/25/19 04:10 Globulin 3.8 g/dL (2.5-4.5) 02/25/19 04:10 Albumin/Globulin Ratio 0.6 Ratio (1.1-2.1) L 02/25/19 04:10 Lipase 92 Units/L (73-393) 02/21/19 19:18 Specimen Type Catherized urine 02/22/19 18:35 Urine Color Luz Maria (YELLOW) 02/22/19 18:35 Urine Appearance Clear (CLEAR) 02/22/19 18:35 Urine pH 5.0 (5.0 - 8.0) 02/22/19 18:35 Ur Specific [place] 1.025 (1.000-1.030) 02/22/19 18:35 Urine Protein 2+ (NEGATIVE) 02/22/19 18:35 Urine Glucose (UA) Negative (NEGATIVE) 02/22/19 18:35 Urine Ketones 1+ (NEGATIVE) 02/22/19 18:35 Urine Occult Blood 3+ (NEGATIVE) 02/22/19 18:35 Urine Nitrite Negative (NEGATIVE) 02/22/19 18:35 Urine Bilirubin Negative (NEGATIVE) 02/22/19 18:35 Urine Urobilinogen 2+ (NORMAL) 02/22/19 18:35 Ur Leukocyte Esterase 2+ (NEGATIVE) 02/22/19 18:35 Urine RBC 3-5 /HPF (0-3) A 02/22/19 18:35 Urine WBC 0-2 /HPF (0-5) 02/22/19 18:35 Ur Squamous Epith Cells Rare /HPF (NEGATIVE) 02/22/19 18:35 Urine Bacteria Negative /HPF (NEGATIVE) 02/22/19 18:35 Ur Culture Indicated? No/not indicated 02/22/19 18:35 Tissue Pathology To follow 02/22/19 10:57 - Assessment and Plan 1: post op appendectomy , lysis of adhesion for perforated appendicitis . subsiding ileus. to advance diet to full liquid . OOB . abdominal xray , same IV ATB .. Lovenox 40 BID - Problem Patient Problems: Patient Problems Hypokalemia (Acute) E87.6 COPD (chronic obstructive pulmonary disease) (Acute) J44.9 Mixed hyperlipidemia (Acute) E78.2 Acute appendicitis (Acute) K35.80
[2019-02-25] MEDS: ZOFRAN INJ 4 MG VIAL IVP PRN (19:05)
[2019-02-25] MEDS: MAGNESIUM SULFATE 1 GRAM/100 mL PREMIX 1 GM/100 ML BAG IV PRN ×2 (21:49→22:53)
[2019-02-26] MEDS: DILAUDID INJ IVP PRN ×5 (01:01→19:15)
[2019-02-26] MEDS: D5 1/2 NS 1000 ML 1,000 ML IV SCH (01:45)
[2019-02-26 04:25] LABS: BASOPHILS % (AUTO) 0.7 % (0.2-1.0); EOSINOPHILS # (AUTO) 0.2 x10^3/uL (0.0-0.2); EOSINOPHILS % (AUTO) 3.1 % (0.9-2.9); HEMATOCRIT 31.4 % (36.0-47.0); HEMOGLOBIN 10.7 g/dL (12.0-16.0); LYMPHOCYTES # (AUTO) 1.5 X10^3/uL (1.3-2.9); MEAN CORPUSCULAR HEMOGLOBIN 30.8 pg (27.0-34.0); MEAN CORPUSCULAR HGB CONC 34.2 g/dL (33.0-35.0); MEAN CORPUSCULAR VOLUME 90.2 fL (80.0-100.0); MEAN PLATELET VOLUME 8.5 fL (7.4-11.0); MONOCYTES # (AUTO) 0.9 x10^3/uL (0.3-0.8); MONOCYTES % (AUTO) 13.9 % (0.0-13.0); NEUTROPHILS # (AUTO) 3.8 x10^3/uL (2.2-4.8); NEUTROPHILS % (AUTO) 59.3 % (42.0-75.0); PLATELET COUNT 208 X10^3/uL (150.0-450.0); RED BLOOD COUNT 3.48 X10^6/uL (3.5-5.4); RED CELL DISTRIBUTION WIDTH 13.2 % (11.6-16.5); WHITE BLOOD COUNT 6.4 X10^3/uL (3.6-10.0)
[2019-02-26 04:35] LABS: ALANINE AMINOTRANSFERASE 9 Units/L (12-78); ALBUMIN 2.1 g/dL (3.4-5.0); ALKALINE PHOSPHATASE 69 Units/L (46-116); ASPARTATE AMINO TRANSFERASE 25 Units/L (15-37); BLOOD UREA NITROGEN 3 mg/dL (7-18); CALCIUM 7.9 mg/dL (8.5-10.1); CARBON DIOXIDE 24.1 mmol/L (21-32); CHLORIDE 104 mmol/L (98-107); COR CA(FOR HYPOALB) 9.4 mg/dL (8.5-10.1); CREATININE 0.78 mg/dL (0.55-1.02); SODIUM 137 mmol/L (136-145); TOTAL PROTEIN 5.9 g/dL (6.4-8.2); eGFR NON BLACK RACES > 60 (>60)
[2019-02-26] MEDS: FLAGYL IV PREMIX 500 MG BAG 500 MG/100 ML BAG IV SCH ×3 (05:17→21:03)
[2019-02-26] MEDS: ZOSYN VIAL 3.375 GRAMS 3.375 G in NS 100 ML IV + SPIKE MINIBAG* 100 ML IV SCH ×3 (06:07→22:07)
[2019-02-26] MEDS: K-RIDER 10 MEQ/NS 100 ML 10 MEQ/100 ML BAG IV PRN (06:08)
--- NOTE | 2019-02-26 08:00 | PCM.PROG ---
Progress Note Progress Note for Day of Date of Exam: 02/26/19 Subjective Subjective: Pt is a 64 yo AAF pmhx CHF, COPD, HTN, PVD, HLD, admitted for perforated appendicitis. She is POD#4. This morning she is feeling better, tolerating some solid po intake from her breakfast. KUB(02/24/19):atelectasis LLL, non-obstructing ileus CTAP(02/21/19):Impression:1. Severe acute appendicitis with stranding and discontinuous enhancement of the wall. Perforation has presumably occurred. Surgical consultation recommended. No drainable collection seen. 2. Vascular plaque and infrarenal abdominal aortic ectasia, similar to the prior. CXR(02/21/19):Impression: Pulmonary hyperinflation and prominent heart size suggesting COPD. Past Medical Family Social History Past Med/Fam/Surg Hx: No changes since H&P Allergies: Allergies ketorolac [From Toradol] Allergy (Verified 02/21/19 23:46) tramadol Allergy (Verified 02/21/19 23:46) Review of Systems ROS: No change since H&P Vital Signs and I&O's Vital Signs: Temperature 98.2 F Pulse Rate [Left Radial] 75 Pulse Rate 84 Respiratory Rate 31 Blood Pressure [Left Arm] 159/72 Blood Pressure [Right Arm] 110/67 Blood Pressure 109/65 O2 Sat by Pulse Oximetry 95 Intake and Output: Intake & Output 02/24/19 02/25/19 02/25/19 02/26/19 00:59 00:59 23:59 23:59 Intake Total 1500 / 1500 Output Total 100 / 100 Balance 1400 / 1400 Physical Exam Oriented: Normal Eyes: Normal Ear: Normal Nose: Normal Respiratory: Normal Cardiovascular: Normal : Normal Auscultation: Bowel Sounds: Normal Palpation: Normal Tenderness: Normal Skin: Normal Musculoskeletal: Normal Psychiatric: Normal Mood Description: Calm Speech Pattern: Clear and Appropriate Laboratory and Diagnostics Result Diagrams: 02/26/19 03:58 02/26/19 03:58 Labs: Laboratory WBC 6.4 X10^3/uL (3.6-10.0) 02/26/19 03:58 RBC 3.48 X10^6/uL (3.5-5.4) L 02/26/19 03:58 Hgb 10.7 g/dL (12.0-16.0) L 02/26/19 03:58 Hct 31.4 % (36.0-47.0) L 02/26/19 03:58 MCV 90.2 fL (80.0-100.0) 02/26/19 03:58 MCH 30.8 pg (27.0-34.0) 02/26/19 03:58 MCHC 34.2 g/dL (33.0-35.0) 02/26/19 03:58 RDW 13.2 % (11.6-16.5) 02/26/19 03:58 Plt Count 208 X10^3/uL (150.0-450.0) 02/26/19 03:58 Plt Count Comment Adequate (ADEQUATE) 02/24/19 04:08 MPV 8.5 fL (7.4-11.0) 02/26/19 03:58 Neut % (Auto) 59.3 % (42.0-75.0) 02/26/19 03:58 Lymph % (Auto) 23.0 % (21.0-51.0) 02/26/19 03:58 [place] % (Auto) 13.9 % (0.0-13.0) H 02/26/19 03:58 Eos % (Auto) 3.1 % (0.9-2.9) H 02/26/19 03:58 Baso % (Auto) 0.7 % (0.2-1.0) 02/26/19 03:58 Neut # (Auto) 3.8 x10^3/uL (2.2-4.8) 02/26/19 03:58 Lymph # (Auto) 1.5 X10^3/uL (1.3-2.9) 02/26/19 03:58 [place] # (Auto) 0.9 x10^3/uL (0.3-0.8) H 02/26/19 03:58 Eos # (Auto) 0.2 x10^3/uL (0.0-0.2) 02/26/19 03:58 Baso # (Auto) 0.0 X10^3/uL (0.0-0.1) 02/26/19 03:58 Absolute Nucleated RBC 0.0 /100WBC 02/26/19 03:58 Plt Morphology Comment Normal (NORMAL) 02/24/19 04:08 RBC Morphology Normal (NORMAL) 02/24/19 04:08 PT 15.3 SECONDS (11.8-14.3) 02/22/19 04:55 INR Target Range - 02/22/19 04:55 INR 1.26 (0.8-1.3) 02/22/19 04:55 Sodium 137 mmol/L (136-145) 02/26/19 03:58 Corrected Sodium TNP 02/26/19 03:58 Potassium 3.2 mmol/L (3.5-5.1) L 02/26/19 03:58 Chloride 104 mmol/L (98-107) 02/26/19 03:58 Carbon Dioxide 24.1 mmol/L (21-32) 02/26/19 03:58 BUN 3 mg/dL (7-18) L 02/26/19 03:58 Creatinine 0.78 mg/dL (0.55-1.02) 02/26/19 03:58 Est GFR (MDRD) Af Amer > 60 (>60) 02/26/19 03:58 Est GFR (MDRD) Non-Af > 60 (>60) 02/26/19 03:58 Glucose 106 mg/dL (65-99) H 02/26/19 03:58 Calcium 7.9 mg/dL (8.5-10.1) L 02/26/19 03:58 Corrected Calcium 9.4 mg/dL (8.5-10.1) 02/26/19 03:58 Magnesium 2.0 mg/dL (1.7-2.9) 02/26/19 03:58 Total Bilirubin 0.50 mg/dL (0.2-1.0) 02/26/19 03:58 AST 25 Units/L (15-37) 02/26/19 03:58 ALT 9 Units/L (12-78) L 02/26/19 03:58 Alkaline Phosphatase 69 Units/L (46-116) 02/26/19 03:58 Creatine Kinase 72 Units/L (26-192) 02/22/19 04:55 CK-MB (CK-2) < 1.0 ng/mL (0-4.0) 02/22/19 04:55 CK/CKMB % Calc 1.4 % (<4) 02/22/19 04:55 Troponin I < 0.02 ng/mL (0-1.5) 02/23/19 08:50 Total Protein 5.9 g/dL (6.4-8.2) L 02/26/19 03:58 Albumin 2.1 g/dL (3.4-5.0) L 02/26/19 03:58 Globulin 3.8 g/dL (2.5-4.5) 02/26/19 03:58 Albumin/Globulin Ratio 0.6 Ratio (1.1-2.1) L 02/26/19 03:58 Lipase 92 Units/L (73-393) 02/21/19 19:18 Specimen Type Catherized urine 02/22/19 18:35 Urine Color Luz Maria (YELLOW) 02/22/19 18:35 Urine Appearance Clear (CLEAR) 02/22/19 18:35 Urine pH 5.0 (5.0 - 8.0) 02/22/19 18:35 Ur Specific [place] 1.025 (1.000-1.030) 02/22/19 18:35 Urine Protein 2+ (NEGATIVE) 02/22/19 18:35 Urine Glucose (UA) Negative (NEGATIVE) 02/22/19 18:35 Urine Ketones 1+ (NEGATIVE) 02/22/19 18:35 Urine Occult Blood 3+ (NEGATIVE) 02/22/19 18:35 Urine Nitrite Negative (NEGATIVE) 02/22/19 18:35 Urine Bilirubin Negative (NEGATIVE) 02/22/19 18:35 Urine Urobilinogen 2+ (NORMAL) 02/22/19 18:35 Ur Leukocyte Esterase 2+ (NEGATIVE) 02/22/19 18:35 Urine RBC 3-5 /HPF (0-3) A 02/22/19 18:35 Urine WBC 0-2 /HPF (0-5) 02/22/19 18:35 Ur Squamous Epith Cells Rare /HPF (NEGATIVE) 02/22/19 18:35 Urine Bacteria Negative /HPF (NEGATIVE) 02/22/19 18:35 Ur Culture Indicated? No/not indicated 02/22/19 18:35 Tissue Pathology To follow 02/22/19 10:57 Plan (1) Acute appendicitis: Status: Acute Qualifiers: Acute appendicitis type: with localized peritonitis Appendicitis abscess presence: unspecified whether abscess present Appendicitis gangrene presence: without gangrene Appendicitis perforation presence: with perforation Qualified Code(s): K35.32 - Acute appendicitis with perforation and localized peritonitis, without abscess Plan: S/p appendectomy POD#4. Pain and nausea management. Pt is having subsiding ileus. Advancing diet as tolerated. YULI drain-serosanguineous output. Abx:IV Flagyl + IV Zosyn. F/u Surgery recs. (2) PVD (peripheral vascular disease): Status: Acute Plan: Restart Plavix today. (3) Hypertension: Status: Acute Qualifiers: Hypertension type: essential hypertension Qualified Code(s): I10 - Essential (primary) hypertension Plan: Will continue home medications based on clinical course post OR. (4) Mixed hyperlipidemia: Status: Acute (5) COPD (chronic obstructive pulmonary disease): Status: Acute Qualifiers: COPD type: unspecified COPD Qualified Code(s): J44.9 - Chronic obstructive pulmonary disease, unspecified (6) Hypokalemia: Status: Acute Plan: Supplement per protocol.
[2019-02-26] MEDS: PLAVIX PO SCH (08:24)
[2019-02-26] MEDS: LOVENOX INJ 40 MG SYR SC SCH ×2 (08:25→09:50)
[2019-02-26] MEDS: D5 1/2 NS + KCL 20 MEQ/L 1,000 ML IV SCH ×2 (10:00→18:24)
[2019-02-26] MEDS: ZOFRAN INJ 4 MG VIAL IVP PRN (10:01)
--- NOTE | 2019-02-26 11:49 | DR.PROGNOT ---
Hospital Progress Notes - Progress Note for Day of: Progress Note Date: 02/26/19 - Chief Complaint Chief Complaint: post op lap appendectomy day 4. c/o nausea and abdominal pain , no vomiting. YULI drainage is serosangineous . CBC, CMP all normal . afebrile . - Past Medical Family Social History Past Med/Fam/Surg Hx: No changes since H&P Allergies: Allergies ketorolac [From Toradol] Allergy (Verified 02/21/19 23:46) tramadol Allergy (Verified 02/21/19 23:46) - Review Of Systems ROS: No change since H&P - Vital Signs Vital Signs: Temperature 97.9 F Pulse Rate [Left Radial] 76 Pulse Rate 84 Respiratory Rate 20 Blood Pressure [Left Arm] 168/88 Blood Pressure [Right Arm] 110/67 Blood Pressure 109/65 O2 Sat by Pulse Oximetry 97 - Physical Exam Oriented: Normal Eyes: Normal Ear: Normal Nose: Normal Respiratory: Normal Cardiovascular: Normal : Normal GI:Auscultation: Decreased GI:Palpation: Normal GI: Tenderness: RUQ, RLQ (moderate distention with Rt side tenderness , no rebound , BS hypoactive .) Skin: Normal Musculoskeletal: Normal Psychiatric: Normal Mood Description: Calm Speech Pattern: Clear, Appropriate - Laboratory and Diagnostics Result Diagrams: 02/26/19 03:58 02/26/19 03:58 Labs: Laboratory WBC 6.4 X10^3/uL (3.6-10.0) 02/26/19 03:58 RBC 3.48 X10^6/uL (3.5-5.4) L 02/26/19 03:58 Hgb 10.7 g/dL (12.0-16.0) L 02/26/19 03:58 Hct 31.4 % (36.0-47.0) L 02/26/19 03:58 MCV 90.2 fL (80.0-100.0) 02/26/19 03:58 MCH 30.8 pg (27.0-34.0) 02/26/19 03:58 MCHC 34.2 g/dL (33.0-35.0) 02/26/19 03:58 RDW 13.2 % (11.6-16.5) 02/26/19 03:58 Plt Count 208 X10^3/uL (150.0-450.0) 02/26/19 03:58 Plt Count Comment Adequate (ADEQUATE) 02/24/19 04:08 MPV 8.5 fL (7.4-11.0) 02/26/19 03:58 Neut % (Auto) 59.3 % (42.0-75.0) 02/26/19 03:58 Lymph % (Auto) 23.0 % (21.0-51.0) 02/26/19 03:58 [place] % (Auto) 13.9 % (0.0-13.0) H 02/26/19 03:58 Eos % (Auto) 3.1 % (0.9-2.9) H 02/26/19 03:58 Baso % (Auto) 0.7 % (0.2-1.0) 02/26/19 03:58 Neut # (Auto) 3.8 x10^3/uL (2.2-4.8) 02/26/19 03:58 Lymph # (Auto) 1.5 X10^3/uL (1.3-2.9) 02/26/19 03:58 [place] # (Auto) 0.9 x10^3/uL (0.3-0.8) H 02/26/19 03:58 Eos # (Auto) 0.2 x10^3/uL (0.0-0.2) 02/26/19 03:58 Baso # (Auto) 0.0 X10^3/uL (0.0-0.1) 02/26/19 03:58 Absolute Nucleated RBC 0.0 /100WBC 02/26/19 03:58 Plt Morphology Comment Normal (NORMAL) 02/24/19 04:08 RBC Morphology Normal (NORMAL) 02/24/19 04:08 PT 15.3 SECONDS (11.8-14.3) 02/22/19 04:55 INR Target Range - 02/22/19 04:55 INR 1.26 (0.8-1.3) 02/22/19 04:55 Sodium 137 mmol/L (136-145) 02/26/19 03:58 Corrected Sodium TNP 02/26/19 03:58 Potassium 3.2 mmol/L (3.5-5.1) L 02/26/19 03:58 Chloride 104 mmol/L (98-107) 02/26/19 03:58 Carbon Dioxide 24.1 mmol/L (21-32) 02/26/19 03:58 BUN 3 mg/dL (7-18) L 02/26/19 03:58 Creatinine 0.78 mg/dL (0.55-1.02) 02/26/19 03:58 Est GFR (MDRD) Af Amer > 60 (>60) 02/26/19 03:58 Est GFR (MDRD) Non-Af > 60 (>60) 02/26/19 03:58 Glucose 106 mg/dL (65-99) H 02/26/19 03:58 Calcium 7.9 mg/dL (8.5-10.1) L 02/26/19 03:58 Corrected Calcium 9.4 mg/dL (8.5-10.1) 02/26/19 03:58 Magnesium 2.0 mg/dL (1.7-2.9) 02/26/19 03:58 Total Bilirubin 0.50 mg/dL (0.2-1.0) 02/26/19 03:58 AST 25 Units/L (15-37) 02/26/19 03:58 ALT 9 Units/L (12-78) L 02/26/19 03:58 Alkaline Phosphatase 69 Units/L (46-116) 02/26/19 03:58 Creatine Kinase 72 Units/L (26-192) 02/22/19 04:55 CK-MB (CK-2) < 1.0 ng/mL (0-4.0) 02/22/19 04:55 CK/CKMB % Calc 1.4 % (<4) 02/22/19 04:55 Troponin I < 0.02 ng/mL (0-1.5) 02/23/19 08:50 Total Protein 5.9 g/dL (6.4-8.2) L 02/26/19 03:58 Albumin 2.1 g/dL (3.4-5.0) L 02/26/19 03:58 Globulin 3.8 g/dL (2.5-4.5) 02/26/19 03:58 Albumin/Globulin Ratio 0.6 Ratio (1.1-2.1) L 02/26/19 03:58 Lipase 92 Units/L (73-393) 02/21/19 19:18 Specimen Type Catherized urine 02/22/19 18:35 Urine Color Luz Maria (YELLOW) 02/22/19 18:35 Urine Appearance Clear (CLEAR) 02/22/19 18:35 Urine pH 5.0 (5.0 - 8.0) 02/22/19 18:35 Ur Specific [place] 1.025 (1.000-1.030) 02/22/19 18:35 Urine Protein 2+ (NEGATIVE) 02/22/19 18:35 Urine Glucose (UA) Negative (NEGATIVE) 02/22/19 18:35 Urine Ketones 1+ (NEGATIVE) 02/22/19 18:35 Urine Occult Blood 3+ (NEGATIVE) 02/22/19 18:35 Urine Nitrite Negative (NEGATIVE) 02/22/19 18:35 Urine Bilirubin Negative (NEGATIVE) 02/22/19 18:35 Urine Urobilinogen 2+ (NORMAL) 02/22/19 18:35 Ur Leukocyte Esterase 2+ (NEGATIVE) 02/22/19 18:35 Urine RBC 3-5 /HPF (0-3) A 02/22/19 18:35 Urine WBC 0-2 /HPF (0-5) 02/22/19 18:35 Ur Squamous Epith Cells Rare /HPF (NEGATIVE) 02/22/19 18:35 Urine Bacteria Negative /HPF (NEGATIVE) 02/22/19 18:35 Ur Culture Indicated? No/not indicated 02/22/19 18:35 Tissue Pathology To follow 02/22/19 10:57 - Assessment and Plan 1: post op appendectomy , lysis of adhesion for perforated appendicitis. ileus with localized peritonitis. liquid diet ,. OOB . abdominal xray , same IV ATB .. Lovenox 40 BID - Problem Patient Problems: Patient Problems Hypokalemia (Acute) E87.6 COPD (chronic obstructive pulmonary disease) (Acute) J44.9 Mixed hyperlipidemia (Acute) E78.2 Acute appendicitis (Acute) K35.80
--- NOTE | 2019-02-26 11:58 | RAD ---
HISTORY: Status post appendectomy. Abdominal pain. Study: Abdomen and pelvis, one view Comparison: February 24, 2019. Findings: Evaluation of the abdomen demonstrates a nonspecific bowel gas pattern. There is moderate gaseous distention of the cecum, short ascending colon and transverse colon. The descending colon is nondistended. There is mild dilatation of several loops of small bowel. There is no evidence of small-bowel obstruction. No pathological soft tissue mass or calcification can be observed. The bony structures are grossly intact. IMPRESSION: 1. Non-specific bowel gas pattern, with moderate dilatation of air-filled loops of colon. No evidence of obstruction. Reported By:
[2019-02-27] MEDS: DILAUDID INJ IVP PRN ×3 (00:28→20:24)
[2019-02-27] MEDS: D5 1/2 NS + KCL 20 MEQ/L 1,000 ML IV SCH ×2 (00:28→10:56)
[2019-02-27 04:55] LABS: BASOPHILS % (AUTO) 0.7 % (0.2-1.0); EOSINOPHILS # (AUTO) 0.2 x10^3/uL (0.0-0.2); EOSINOPHILS % (AUTO) 3.8 % (0.9-2.9); HEMATOCRIT 31.7 % (36.0-47.0); HEMOGLOBIN 10.8 g/dL (12.0-16.0); MEAN CORPUSCULAR HEMOGLOBIN 30.8 pg (27.0-34.0); MEAN CORPUSCULAR VOLUME 90.6 fL (80.0-100.0); MEAN PLATELET VOLUME 8.4 fL (7.4-11.0); MONOCYTES # (AUTO) 0.9 x10^3/uL (0.3-0.8); MONOCYTES % (AUTO) 16.4 % (0.0-13.0); NEUTROPHILS # (AUTO) 3.3 x10^3/uL (2.2-4.8); NEUTROPHILS % (AUTO) 60.1 % (42.0-75.0); PLATELET COUNT 227 X10^3/uL (150.0-450.0); RED CELL DISTRIBUTION WIDTH 13.5 % (11.6-16.5); WHITE BLOOD COUNT 5.5 X10^3/uL (3.6-10.0)
[2019-02-27] MEDS: FLAGYL IV PREMIX 500 MG BAG 500 MG/100 ML BAG IV SCH ×3 (05:00→21:03)
[2019-02-27 05:05] LABS: BLOOD UREA NITROGEN 2 mg/dL (7-18); CARBON DIOXIDE 26.3 mmol/L (21-32); CHLORIDE 104 mmol/L (98-107); COR NA(FOR HYPERGLY) 140 mmol/L (136-145); SODIUM 139 mmol/L (136-145); eGFR NON BLACK RACES > 60 (>60)
[2019-02-27] MEDS: ZOSYN VIAL 3.375 GRAMS 3.375 G in NS 100 ML IV + SPIKE MINIBAG* 100 ML IV SCH ×3 (05:53→21:17)
[2019-02-27] MEDS: PLAVIX PO SCH (09:00)
[2019-02-27] MEDS: LOVENOX INJ 40 MG SYR SC SCH (09:00)
[2019-02-27] MEDS ORDERED: PERCOCET TAB 5/325 MG PO PRN (09:06)
--- NOTE | 2019-02-27 09:27 | DR.PROGNOT ---
Hospital Progress Notes - Progress Note for Day of: Progress Note Date: 02/27/19 - Chief Complaint Chief Complaint: post op lap appendectomy day 5. much better today , mild abdominal pain . passing flatus ,. CBC, CMP all normal . afebrile . YULI was removed . no wound infection. - Past Medical Family Social History Past Med/Fam/Surg Hx: No changes since H&P Allergies: Allergies ketorolac [From Toradol] Allergy (Verified 02/21/19 23:46) tramadol Allergy (Verified 02/21/19 23:46) - Review Of Systems ROS: No change since H&P - Vital Signs Vital Signs: Temperature 98.5 F Pulse Rate [Left Radial] 70 Pulse Rate 84 Respiratory Rate 16 Blood Pressure [Left Arm] 164/82 Blood Pressure [Right Arm] 110/67 Blood Pressure 109/65 O2 Sat by Pulse Oximetry 97 - Physical Exam Oriented: Normal Eyes: Normal Ear: Normal Nose: Normal Respiratory: Normal Cardiovascular: Normal : Normal GI:Auscultation: Decreased GI:Palpation: Normal GI: Tenderness: Normal (soft , flat abdomen with mild RLQ tenderness . BS+) Skin: Normal Musculoskeletal: Normal Psychiatric: Normal Mood Description: Calm Speech Pattern: Clear, Appropriate - Laboratory and Diagnostics Result Diagrams: 02/27/19 04:00 02/27/19 04:00 Labs: Laboratory WBC 5.5 X10^3/uL (3.6-10.0) 02/27/19 04:00 RBC 3.50 X10^6/uL (3.5-5.4) 02/27/19 04:00 Hgb 10.8 g/dL (12.0-16.0) L 02/27/19 04:00 Hct 31.7 % (36.0-47.0) L 02/27/19 04:00 MCV 90.6 fL (80.0-100.0) 02/27/19 04:00 MCH 30.8 pg (27.0-34.0) 02/27/19 04:00 MCHC 34.0 g/dL (33.0-35.0) 02/27/19 04:00 RDW 13.5 % (11.6-16.5) 02/27/19 04:00 Plt Count 227 X10^3/uL (150.0-450.0) 02/27/19 04:00 Plt Count Comment Adequate (ADEQUATE) 02/24/19 04:08 MPV 8.4 fL (7.4-11.0) 02/27/19 04:00 Neut % (Auto) 60.1 % (42.0-75.0) 02/27/19 04:00 Lymph % (Auto) 19.0 % (21.0-51.0) L 02/27/19 04:00 [place] % (Auto) 16.4 % (0.0-13.0) H 02/27/19 04:00 Eos % (Auto) 3.8 % (0.9-2.9) H 02/27/19 04:00 Baso % (Auto) 0.7 % (0.2-1.0) 02/27/19 04:00 Neut # (Auto) 3.3 x10^3/uL (2.2-4.8) 02/27/19 04:00 Lymph # (Auto) 1.0 X10^3/uL (1.3-2.9) L 02/27/19 04:00 [place] # (Auto) 0.9 x10^3/uL (0.3-0.8) H 02/27/19 04:00 Eos # (Auto) 0.2 x10^3/uL (0.0-0.2) 02/27/19 04:00 Baso # (Auto) 0.0 X10^3/uL (0.0-0.1) 02/27/19 04:00 Absolute Nucleated RBC 0.0 /100WBC 02/27/19 04:00 Plt Morphology Comment Normal (NORMAL) 02/24/19 04:08 RBC Morphology Normal (NORMAL) 02/24/19 04:08 PT 15.3 SECONDS (11.8-14.3) 02/22/19 04:55 INR Target Range - 02/22/19 04:55 INR 1.26 (0.8-1.3) 02/22/19 04:55 Sodium 139 mmol/L (136-145) 02/27/19 04:00 Corrected Sodium 140 mmol/L (136-145) 02/27/19 04:00 Potassium 3.4 mmol/L (3.5-5.1) L 02/27/19 04:00 Chloride 104 mmol/L (98-107) 02/27/19 04:00 Carbon Dioxide 26.3 mmol/L (21-32) 02/27/19 04:00 BUN 2 mg/dL (7-18) L 02/27/19 04:00 Creatinine 0.80 mg/dL (0.55-1.02) 02/27/19 04:00 Est GFR (MDRD) Af Amer > 60 (>60) 02/27/19 04:00 Est GFR (MDRD) Non-Af > 60 (>60) 02/27/19 04:00 Glucose 125 mg/dL (65-99) H 02/27/19 04:00 Calcium 8.0 mg/dL (8.5-10.1) L 02/27/19 04:00 Corrected Calcium 9.4 mg/dL (8.5-10.1) 02/26/19 03:58 Magnesium 2.0 mg/dL (1.7-2.9) 02/26/19 03:58 Total Bilirubin 0.50 mg/dL (0.2-1.0) 02/26/19 03:58 AST 25 Units/L (15-37) 02/26/19 03:58 ALT 9 Units/L (12-78) L 02/26/19 03:58 Alkaline Phosphatase 69 Units/L (46-116) 02/26/19 03:58 Creatine Kinase 72 Units/L (26-192) 02/22/19 04:55 CK-MB (CK-2) < 1.0 ng/mL (0-4.0) 02/22/19 04:55 CK/CKMB % Calc 1.4 % (<4) 02/22/19 04:55 Troponin I < 0.02 ng/mL (0-1.5) 02/23/19 08:50 Total Protein 5.9 g/dL (6.4-8.2) L 02/26/19 03:58 Albumin 2.1 g/dL (3.4-5.0) L 02/26/19 03:58 Globulin 3.8 g/dL (2.5-4.5) 02/26/19 03:58 Albumin/Globulin Ratio 0.6 Ratio (1.1-2.1) L 02/26/19 03:58 Lipase 92 Units/L (73-393) 02/21/19 19:18 Specimen Type Catherized urine 02/22/19 18:35 Urine Color Luz Maria (YELLOW) 02/22/19 18:35 Urine Appearance Clear (CLEAR) 02/22/19 18:35 Urine pH 5.0 (5.0 - 8.0) 02/22/19 18:35 Ur Specific Echo 1.025 (1.000-1.030) 02/22/19 18:35 Urine Protein 2+ (NEGATIVE) 02/22/19 18:35 Urine Glucose (UA) Negative (NEGATIVE) 02/22/19 18:35 Urine Ketones 1+ (NEGATIVE) 02/22/19 18:35 Urine Occult Blood 3+ (NEGATIVE) 02/22/19 18:35 Urine Nitrite Negative (NEGATIVE) 02/22/19 18:35 Urine Bilirubin Negative (NEGATIVE) 02/22/19 18:35 Urine Urobilinogen 2+ (NORMAL) 02/22/19 18:35 Ur Leukocyte Esterase 2+ (NEGATIVE) 02/22/19 18:35 Urine RBC 3-5 /HPF (0-3) A 02/22/19 18:35 Urine WBC 0-2 /HPF (0-5) 02/22/19 18:35 Ur Squamous Epith Cells Rare /HPF (NEGATIVE) 02/22/19 18:35 Urine Bacteria Negative /HPF (NEGATIVE) 02/22/19 18:35 Ur Culture Indicated? No/not indicated 02/22/19 18:35 Tissue Pathology To follow 02/22/19 10:57 - Assessment and Plan 1: post op appendectomy , lysis of adhesion for perforated appendicitis. subsided ileus with localized peritonitis. OOB . to advance diet same IV ATB .. Lovenox 40 BID . d/c in am and follow in 10 days . - Problem Patient Problems: Patient Problems Hypokalemia (Acute) E87.6 COPD (chronic obstructive pulmonary disease) (Acute) J44.9 Mixed hyperlipidemia (Acute) E78.2 Acute appendicitis (Acute) K35.80
--- NOTE | 2019-02-27 09:35 | PCM.PROG ---
Progress Note Progress Note for Day of Date of Exam: 02/27/19 Subjective Subjective: Pt is a 64 yo AAF pmhx CHF, COPD, HTN, PVD, HLD, admitted for perforated appendicitis. She is POD#5. This morning she says she feels a little pain on right abdomen but pain medicine helping. Tolerating some solid po intake yesterday but states she did not like the choice of foods. She reports not having bowel movement but is passing gas. YULI drain present. KUB(02/26/19):1. Non-specific bowel gas pattern, with moderate dilatation of air-filled loops of colon. No evidence of obstruction. KUB(02/24/19):atelectasis LLL, non-obstructing ileus CTAP(02/21/19):Impression:1. Severe acute appendicitis with stranding and discontinuous enhancement of the wall. Perforation has presumably occurred. Surgical consultation recommended. No drainable collection seen. 2. Vascular plaque and infrarenal abdominal aortic ectasia, similar to the prior. CXR(02/21/19):Impression: Pulmonary hyperinflation and prominent heart size suggesting COPD. Past Medical Family Social History Past Med/Fam/Surg Hx: No changes since H&P Allergies: Allergies ketorolac [From Toradol] Allergy (Verified 02/21/19 23:46) tramadol Allergy (Verified 02/21/19 23:46) Review of Systems ROS: No change since H&P Vital Signs and I&O's Vital Signs: Temperature 98.5 F Pulse Rate [Left Radial] 70 Pulse Rate 84 Respiratory Rate 16 Blood Pressure [Left Arm] 164/82 Blood Pressure [Right Arm] 110/67 Blood Pressure 109/65 O2 Sat by Pulse Oximetry 97 Intake and Output: Intake & Output 02/25/19 02/25/19 02/26/19 02/27/19 00:59 23:59 23:59 23:59 Intake Total 3950 / 3950 1450 / 1450 Output Total 195 / 195 Balance 3755 / 3755 1440 / 1440 Physical Exam Oriented: Normal Eyes: Normal Ear: Normal Nose: Normal Respiratory: Normal Cardiovascular: Normal : Normal Auscultation: Bowel Sounds: Decreased Tenderness: Normal (soft , flat abdomen with mild RLQ tenderness . BS+) Skin: Normal Musculoskeletal: Normal Psychiatric: Normal Mood Description: Calm Speech Pattern: Clear and Appropriate Laboratory and Diagnostics Result Diagrams: 02/27/19 04:00 02/27/19 04:00 Labs: Laboratory WBC 5.5 X10^3/uL (3.6-10.0) 02/27/19 04:00 RBC 3.50 X10^6/uL (3.5-5.4) 02/27/19 04:00 Hgb 10.8 g/dL (12.0-16.0) L 02/27/19 04:00 Hct 31.7 % (36.0-47.0) L 02/27/19 04:00 MCV 90.6 fL (80.0-100.0) 02/27/19 04:00 MCH 30.8 pg (27.0-34.0) 02/27/19 04:00 MCHC 34.0 g/dL (33.0-35.0) 02/27/19 04:00 RDW 13.5 % (11.6-16.5) 02/27/19 04:00 Plt Count 227 X10^3/uL (150.0-450.0) 02/27/19 04:00 Plt Count Comment Adequate (ADEQUATE) 02/24/19 04:08 MPV 8.4 fL (7.4-11.0) 02/27/19 04:00 Neut % (Auto) 60.1 % (42.0-75.0) 02/27/19 04:00 Lymph % (Auto) 19.0 % (21.0-51.0) L 02/27/19 04:00 [place] % (Auto) 16.4 % (0.0-13.0) H 02/27/19 04:00 Eos % (Auto) 3.8 % (0.9-2.9) H 02/27/19 04:00 Baso % (Auto) 0.7 % (0.2-1.0) 02/27/19 04:00 Neut # (Auto) 3.3 x10^3/uL (2.2-4.8) 02/27/19 04:00 Lymph # (Auto) 1.0 X10^3/uL (1.3-2.9) L 02/27/19 04:00 [place] # (Auto) 0.9 x10^3/uL (0.3-0.8) H 02/27/19 04:00 Eos # (Auto) 0.2 x10^3/uL (0.0-0.2) 02/27/19 04:00 Baso # (Auto) 0.0 X10^3/uL (0.0-0.1) 02/27/19 04:00 Absolute Nucleated RBC 0.0 /100WBC 02/27/19 04:00 Plt Morphology Comment Normal (NORMAL) 02/24/19 04:08 RBC Morphology Normal (NORMAL) 02/24/19 04:08 PT 15.3 SECONDS (11.8-14.3) 02/22/19 04:55 INR Target Range - 02/22/19 04:55 INR 1.26 (0.8-1.3) 02/22/19 04:55 Sodium 139 mmol/L (136-145) 02/27/19 04:00 Corrected Sodium 140 mmol/L (136-145) 02/27/19 04:00 Potassium 3.4 mmol/L (3.5-5.1) L 02/27/19 04:00 Chloride 104 mmol/L (98-107) 02/27/19 04:00 Carbon Dioxide 26.3 mmol/L (21-32) 02/27/19 04:00 BUN 2 mg/dL (7-18) L 02/27/19 04:00 Creatinine 0.80 mg/dL (0.55-1.02) 02/27/19 04:00 Est GFR (MDRD) Af Amer > 60 (>60) 02/27/19 04:00 Est GFR (MDRD) Non-Af > 60 (>60) 02/27/19 04:00 Glucose 125 mg/dL (65-99) H 02/27/19 04:00 Calcium 8.0 mg/dL (8.5-10.1) L 02/27/19 04:00 Corrected Calcium 9.4 mg/dL (8.5-10.1) 02/26/19 03:58 Magnesium 2.0 mg/dL (1.7-2.9) 02/26/19 03:58 Total Bilirubin 0.50 mg/dL (0.2-1.0) 02/26/19 03:58 AST 25 Units/L (15-37) 02/26/19 03:58 ALT 9 Units/L (12-78) L 02/26/19 03:58 Alkaline Phosphatase 69 Units/L (46-116) 02/26/19 03:58 Creatine Kinase 72 Units/L (26-192) 02/22/19 04:55 CK-MB (CK-2) < 1.0 ng/mL (0-4.0) 02/22/19 04:55 CK/CKMB % Calc 1.4 % (<4) 02/22/19 04:55 Troponin I < 0.02 ng/mL (0-1.5) 02/23/19 08:50 Total Protein 5.9 g/dL (6.4-8.2) L 02/26/19 03:58 Albumin 2.1 g/dL (3.4-5.0) L 02/26/19 03:58 Globulin 3.8 g/dL (2.5-4.5) 02/26/19 03:58 Albumin/Globulin Ratio 0.6 Ratio (1.1-2.1) L 02/26/19 03:58 Lipase 92 Units/L (73-393) 02/21/19 19:18 Specimen Type Catherized urine 02/22/19 18:35 Urine Color [place] (YELLOW) 02/22/19 18:35 Urine Appearance Clear (CLEAR) 02/22/19 18:35 Urine pH 5.0 (5.0 - 8.0) 02/22/19 18:35 Ur Specific [place] 1.025 (1.000-1.030) 02/22/19 18:35 Urine Protein 2+ (NEGATIVE) 02/22/19 18:35 Urine Glucose (UA) Negative (NEGATIVE) 02/22/19 18:35 Urine Ketones 1+ (NEGATIVE) 02/22/19 18:35 Urine Occult Blood 3+ (NEGATIVE) 02/22/19 18:35 Urine Nitrite Negative (NEGATIVE) 02/22/19 18:35 Urine Bilirubin Negative (NEGATIVE) 02/22/19 18:35 Urine Urobilinogen 2+ (NORMAL) 02/22/19 18:35 Ur Leukocyte Esterase 2+ (NEGATIVE) 02/22/19 18:35 Urine RBC 3-5 /HPF (0-3) A 02/22/19 18:35 Urine WBC 0-2 /HPF (0-5) 02/22/19 18:35 Ur Squamous Epith Cells Rare /HPF (NEGATIVE) 02/22/19 18:35 Urine Bacteria Negative /HPF (NEGATIVE) 02/22/19 18:35 Ur Culture Indicated? No/not indicated 02/22/19 18:35 Tissue Pathology To follow 02/22/19 10:57 Plan (1) Acute appendicitis: Status: Acute Qualifiers: Acute appendicitis type: with localized peritonitis Appendicitis abscess presence: unspecified whether abscess present Appendicitis gangrene presence: without gangrene Appendicitis perforation presence: with perforation Qualified Code(s): K35.32 - Acute appendicitis with perforation and localized peritonitis, without abscess Plan: S/p appendectomy POD#5. Pain and nausea management. Pt is having subsiding ileus. Diet is being advanced as tolerated. YULI drain-serosanguineous output. Abx:IV Flagyl + IV Zosyn. F/u Surgery recs. (2) PVD (peripheral vascular disease): Status: Acute Plan: Restart Plavix today. (3) Hypertension: Status: Acute Qualifiers: Hypertension type: essential hypertension Qualified Code(s): I10 - Essential (primary) hypertension Plan: Will continue home medications based on clinical course post OR. (4) Mixed hyperlipidemia: Status: Acute (5) COPD (chronic obstructive pulmonary disease): Status: Acute Qualifiers: COPD type: unspecified COPD Qualified Code(s): J44.9 - Chronic obstructive pulmonary disease, unspecified (6) Hypokalemia: Status: Acute Plan: Supplement per protocol.
[2019-02-27] MEDS: ZOFRAN INJ 4 MG VIAL IVP PRN (20:25)
[2019-02-28] MEDS: D5 1/2 NS + KCL 20 MEQ/L 1,000 ML IV SCH (00:17)
[2019-02-28] MEDS: FLAGYL IV PREMIX 500 MG BAG 500 MG/100 ML BAG IV SCH (05:02)
[2019-02-28] MEDS: ZOSYN VIAL 3.375 GRAMS 3.375 G in NS 100 ML IV + SPIKE MINIBAG* 100 ML IV SCH (05:03)
[2019-02-28] MEDS: ZOFRAN INJ 4 MG VIAL IVP PRN (05:03)
[2019-02-28 05:26] LABS: BASOPHILS % (AUTO) 0.7 % (0.2-1.0); EOSINOPHILS # (AUTO) 0.3 x10^3/uL (0.0-0.2); EOSINOPHILS % (AUTO) 3.6 % (0.9-2.9); HEMATOCRIT 31.9 % (36.0-47.0); HEMOGLOBIN 10.8 g/dL (12.0-16.0); LYMPHOCYTES # (AUTO) 1.4 X10^3/uL (1.3-2.9); LYMPHOCYTES % (AUTO) 19.6 % (21.0-51.0); MEAN CORPUSCULAR HEMOGLOBIN 30.9 pg (27.0-34.0); MEAN PLATELET VOLUME 8.4 fL (7.4-11.0); MONOCYTES # (AUTO) 1.2 x10^3/uL (0.3-0.8); MONOCYTES % (AUTO) 17.5 % (0.0-13.0); NEUTROPHILS # (AUTO) 4.1 x10^3/uL (2.2-4.8); NEUTROPHILS % (AUTO) 58.6 % (42.0-75.0); PLATELET COUNT 289 X10^3/uL (150.0-450.0); RED CELL DISTRIBUTION WIDTH 13.6 % (11.6-16.5); WHITE BLOOD COUNT 7.1 X10^3/uL (3.6-10.0)
[2019-02-28 05:31] LABS: BLOOD UREA NITROGEN 2 mg/dL (7-18); CALCIUM 8.4 mg/dL (8.5-10.1); CARBON DIOXIDE 27.2 mmol/L (21-32); CHLORIDE 104 mmol/L (98-107); CREATININE 0.83 mg/dL (0.55-1.02); SODIUM 140 mmol/L (136-145); eGFR NON BLACK RACES > 60 (>60)
[2019-02-28] MEDS: PLAVIX PO SCH (08:38)
[2019-02-28] MEDS: LOVENOX INJ 40 MG SYR SC SCH (08:39)
--- NOTE | 2019-02-28 09:01 | PCM.PROG ---
Progress Note Progress Note for Day of Date of Exam: 02/28/19 Subjective Subjective: Pt is a 64 yo AAF pmhx CHF, COPD, HTN, PVD, HLD, admitted for perforated appendicitis. She is s/p appendectomy POD#6. This morning she is resting comfortably. She reports pain has improved and she had YULI drain removed yesterday. Tolerating po. No acute concerns. KUB(02/26/19):1. Non-specific bowel gas pattern, with moderate dilatation of air-filled loops of colon. No evidence of obstruction. KUB(02/24/19):atelectasis LLL, non-obstructing ileus CTAP(02/21/19):Impression:1. Severe acute appendicitis with stranding and discontinuous enhancement of the wall. Perforation has presumably occurred. Surgical consultation recommended. No drainable collection seen. 2. Vascular plaque and infrarenal abdominal aortic ectasia, similar to the prior. CXR(02/21/19):Impression: Pulmonary hyperinflation and prominent heart size suggesting COPD. Past Medical Family Social History Past Med/Fam/Surg Hx: No changes since H&P Allergies: Allergies ketorolac [From Toradol] Allergy (Verified 02/21/19 23:46) tramadol Allergy (Verified 02/21/19 23:46) Review of Systems ROS: No change since H&P Vital Signs and I&O's Vital Signs: Temperature 97.6 F Pulse Rate [Left Radial] 72 Pulse Rate 84 Respiratory Rate 18 Blood Pressure [Left Arm] 166/82 Blood Pressure [Right Arm] 110/67 Blood Pressure 109/65 O2 Sat by Pulse Oximetry 98 Intake and Output: Intake & Output 02/25/19 02/26/19 02/27/19 02/28/19 23:59 23:59 23:59 23:59 Intake Total 3950 / 3950 4601 / 4601 1200 / 1200 Output Total 195 / 195 0 / 0 Balance 3755 / 3755 4591 / 4591 1200 / 1200 Physical Exam Oriented: Normal Eyes: Normal Ear: Normal Nose: Normal Respiratory: Normal Cardiovascular: Normal : Normal Auscultation: Bowel Sounds: Normal Tenderness: Normal (soft , flat abdomen with mild RLQ tenderness . BS+) Skin: Normal Musculoskeletal: Normal Psychiatric: Normal Mood Description: Calm Speech Pattern: Clear and Appropriate Laboratory and Diagnostics Result Diagrams: 02/28/19 04:10 02/28/19 04:10 Labs: Laboratory WBC 7.1 X10^3/uL (3.6-10.0) 02/28/19 04:10 RBC 3.50 X10^6/uL (3.5-5.4) 02/28/19 04:10 Hgb 10.8 g/dL (12.0-16.0) L 02/28/19 04:10 Hct 31.9 % (36.0-47.0) L 02/28/19 04:10 MCV 91.0 fL (80.0-100.0) 02/28/19 04:10 MCH 30.9 pg (27.0-34.0) 02/28/19 04:10 MCHC 34.0 g/dL (33.0-35.0) 02/28/19 04:10 RDW 13.6 % (11.6-16.5) 02/28/19 04:10 Plt Count 289 X10^3/uL (150.0-450.0) 02/28/19 04:10 Plt Count Comment Adequate (ADEQUATE) 02/24/19 04:08 MPV 8.4 fL (7.4-11.0) 02/28/19 04:10 Neut % (Auto) 58.6 % (42.0-75.0) 02/28/19 04:10 Lymph % (Auto) 19.6 % (21.0-51.0) L 02/28/19 04:10 [place] % (Auto) 17.5 % (0.0-13.0) H 02/28/19 04:10 Eos % (Auto) 3.6 % (0.9-2.9) H 02/28/19 04:10 Baso % (Auto) 0.7 % (0.2-1.0) 02/28/19 04:10 Neut # (Auto) 4.1 x10^3/uL (2.2-4.8) 02/28/19 04:10 Lymph # (Auto) 1.4 X10^3/uL (1.3-2.9) 02/28/19 04:10 [place] # (Auto) 1.2 x10^3/uL (0.3-0.8) H 02/28/19 04:10 Eos # (Auto) 0.3 x10^3/uL (0.0-0.2) H 02/28/19 04:10 Baso # (Auto) 0.0 X10^3/uL (0.0-0.1) 02/28/19 04:10 Absolute Nucleated RBC 0.2 /100WBC 02/28/19 04:10 Plt Morphology Comment Normal (NORMAL) 02/24/19 04:08 RBC Morphology Normal (NORMAL) 02/24/19 04:08 PT 15.3 SECONDS (11.8-14.3) 02/22/19 04:55 INR Target Range - 02/22/19 04:55 INR 1.26 (0.8-1.3) 02/22/19 04:55 Sodium 140 mmol/L (136-145) 02/28/19 04:10 Corrected Sodium TNP 02/28/19 04:10 Potassium 3.4 mmol/L (3.5-5.1) L 02/28/19 04:10 Chloride 104 mmol/L (98-107) 02/28/19 04:10 Carbon Dioxide 27.2 mmol/L (21-32) 02/28/19 04:10 BUN 2 mg/dL (7-18) L 02/28/19 04:10 Creatinine 0.83 mg/dL (0.55-1.02) 02/28/19 04:10 Est GFR (MDRD) Af Amer > 60 (>60) 02/28/19 04:10 Est GFR (MDRD) Non-Af > 60 (>60) 02/28/19 04:10 Glucose 94 mg/dL (65-99) 02/28/19 04:10 Calcium 8.4 mg/dL (8.5-10.1) L 02/28/19 04:10 Corrected Calcium 9.4 mg/dL (8.5-10.1) 02/26/19 03:58 Magnesium 2.0 mg/dL (1.7-2.9) 02/26/19 03:58 Total Bilirubin 0.50 mg/dL (0.2-1.0) 02/26/19 03:58 AST 25 Units/L (15-37) 02/26/19 03:58 ALT 9 Units/L (12-78) L 02/26/19 03:58 Alkaline Phosphatase 69 Units/L (46-116) 02/26/19 03:58 Creatine Kinase 72 Units/L (26-192) 02/22/19 04:55 CK-MB (CK-2) < 1.0 ng/mL (0-4.0) 02/22/19 04:55 CK/CKMB % Calc 1.4 % (<4) 02/22/19 04:55 Troponin I < 0.02 ng/mL (0-1.5) 02/23/19 08:50 Total Protein 5.9 g/dL (6.4-8.2) L 02/26/19 03:58 Albumin 2.1 g/dL (3.4-5.0) L 02/26/19 03:58 Globulin 3.8 g/dL (2.5-4.5) 02/26/19 03:58 Albumin/Globulin Ratio 0.6 Ratio (1.1-2.1) L 02/26/19 03:58 Lipase 92 Units/L (73-393) 02/21/19 19:18 Specimen Type Catherized urine 02/22/19 18:35 Urine Color Luz Maria (YELLOW) 02/22/19 18:35 Urine Appearance Clear (CLEAR) 02/22/19 18:35 Urine pH 5.0 (5.0 - 8.0) 02/22/19 18:35 Ur Specific [place] 1.025 (1.000-1.030) 02/22/19 18:35 Urine Protein 2+ (NEGATIVE) 02/22/19 18:35 Urine Glucose (UA) Negative (NEGATIVE) 02/22/19 18:35 Urine Ketones 1+ (NEGATIVE) 02/22/19 18:35 Urine Occult Blood 3+ (NEGATIVE) 02/22/19 18:35 Urine Nitrite Negative (NEGATIVE) 02/22/19 18:35 Urine Bilirubin Negative (NEGATIVE) 02/22/19 18:35 Urine Urobilinogen 2+ (NORMAL) 02/22/19 18:35 Ur Leukocyte Esterase 2+ (NEGATIVE) 02/22/19 18:35 Urine RBC 3-5 /HPF (0-3) A 02/22/19 18:35 Urine WBC 0-2 /HPF (0-5) 02/22/19 18:35 Ur Squamous Epith Cells Rare /HPF (NEGATIVE) 02/22/19 18:35 Urine Bacteria Negative /HPF (NEGATIVE) 02/22/19 18:35 Ur Culture Indicated? No/not indicated 02/22/19 18:35 Tissue Pathology To follow 02/22/19 10:57 Plan (1) Acute appendicitis: Status: Acute Qualifiers: Acute appendicitis type: with localized peritonitis Appendicitis abscess presence: unspecified whether abscess present Appendicitis gangrene presence: without gangrene Appendicitis perforation presence: with perforation Qualified Code(s): K35.32 - Acute appendicitis with perforation and localized peritonitis, without abscess Plan: S/p appendectomy POD#6. Pt is tolerating diet. YULI removed yesterday. Medically stable for discharge per surgery recs. Signing off. Can f/u outpatient clinic 1 week. (2) PVD (peripheral vascular disease): Status: Chronic Plan: Restart Plavix today. (3) Hypertension: Status: Chronic Qualifiers: Hypertension type: essential hypertension Qualified Code(s): I10 - Essential (primary) hypertension Plan: Will continue home medications based on clinical course post OR. (4) Mixed hyperlipidemia: Status: Acute (5) COPD (chronic obstructive pulmonary disease): Status: Chronic Qualifiers: COPD type: unspecified COPD Qualified Code(s): J44.9 - Chronic obstructive pulmonary disease, unspecified (6) Hypokalemia: Status: Acute Plan: Supplement per protocol.
[2019-02-28 12:19] VITALS: BP 150/70
== END 2019-02-28 12:40 | disposition home or self-care (01) | DRG 373 ==
LOC: ER 18:40 → MED/SURG 22:25 → ICU 02-22 11:14
PROVIDERS: ADMIT Surgery; ATTEND Surgery
PROC: APPYLAP (ICD-10-PCS; 2019-02-22 09:15)
DX: J44.9 Chronic obstructive pulmonary disease, unspecified; R10.32 Left lower quadrant pain; R94.31 Abnormal electrocardiogram [ECG] [EKG]; E87.6 Hypokalemia; K35.31 Acute appendicitis with localized peritonitis and gangrene, without perforation; E78.2 Mixed hyperlipidemia; I10 Essential (primary) hypertension; I73.89 Other specified peripheral vascular diseases; Z79.01 Long term (current) use of anticoagulants
CPT/HCPCS: 36415; 71010; 71045; 74000; 74018; 74177; 80048; 80053; 81001; 82550; 82553; 83690; 83735; 84484; 85025; 85610; 93005; 96365; 96374; 96375; 99284; A4216; A4222; S0030; J0330; J1170; J1650; J2175; J2250; J2370; J2405; J2543; J2704; J2710; J2765; J3010; J3475; J3480; J3490; J7030; J7050; J7120; S5010